=== PATIENT | male | born 1950 | race Caucasian/White ===

== ENCOUNTER → 2017-11-23 08:29 | Outpatient (CLI) | payer MEDICARE, OTHER, SELFPAY ==
--- NOTE | 2017-11-23 | DI.US.S_ITS ---
PROCEDURE: US ABD AORTA ANEURYSM SCREEN INDICATIONS: ABDOMINAL AORTIC ANEURYSM SCREENING TECHNIQUE: Real time scanning was performed of the aorta and iliac arteries, with image documentation. COMPARISON: None. FINDINGS: Aorta: Proximal aortic diameter measures 2.8 cm. Mid-aorta measures 1.8 cm. Distal aortic diameter is 1.7 cm. Iliac arteries: Right common iliac artery measures 1.2 cm. Left common iliac artery measures 1.2 cm. IMPRESSION: No aneurysm found. No dissection identified. Dictated by: Bam Garcia M.D. on 11/23/2017 at 9:48 Approved by: Bam Garcia M.D. on 11/23/2017 at 9:49
== END ==
PROVIDERS: Family Provider Physician Assistant; PCP Physician Assistant; Visit Provider Physician Assistant
DX: Z13.6 Encounter for screening for cardiovascular disorders (principal)
CPT/HCPCS: 76706

== ENCOUNTER → 2018-04-10 15:16 | Outpatient (CLI) | payer OTHER, SELFPAY ==
[2018-04-10 16:40] LABS: C-Reactive Protein Quant 1.3 mg/dL (<1.0)
[2018-04-10 17:03] LABS: Erythrocyte Sedimentation Rate 14 MM/HR (0-15)
== END ==
PROVIDERS: Family Provider Physician Assistant; PCP Physician Assistant; Visit Provider Specialist
DX: M31.6 Other giant cell arteritis (principal)
CPT/HCPCS: 36415; 85651; 86140; 99214

== ENCOUNTER → 2018-04-29 09:06 | Outpatient (CLI) | payer OTHER, SELFPAY ==
--- NOTE | 2018-04-29 09:08 | DI.MRI.S_ITS ---
PROCEDURE: MR HEAD/BRAIN WO CON INDICATIONS: New daily worsening headache with confusion TECHNIQUE: Noncontrast axial T1 spin echo, axial T2 fast spin echo, sagittal and axial FLAIR, coronal T2 fast spin echo, axial gradient echo, axial diffusion and ADC through the brain. COMPARISON: None. FINDINGS: Image quality: Limited by reduced [id number] related to use of body coil for image acquisition. Patient was unable to fit into the head coil. CSF Spaces: Basal cisterns are patent. Diffuse prominence of CSF space. Prominence of the ventricular system is out of proportion to prominence of the sulci which could be due to central volume loss versus normal pressure hydrocephalus. Ventricles are normal in size and shape. Brain: No intracranial masses or hemorrhage. Vincent/white matter interface is normal. Brainstem appears normal. Diffusion-weighted images demonstrate no acute ischemic insult. No chronic ischemic insults. Normal intravascular flow voids are present. Skull and face: Calvarium has normal marrow signal. Orbits appear normal. Sinuses: Sinuses and mastoids are clear. IMPRESSION: 1. Mild ventriculomegaly which could be due to age related central volume loss versus normal pressure hydrocephalus. Please correlate with clinical data. 2. No abnormal intracranial mass. 3. No intracranial hemorrhage. Dictated by: Albina Dias MD, PhD on 05/01/2018 at 9:40 Approved by: Albina Dias MD, PhD on 05/01/2018 at 9:43
== END ==
PROVIDERS: PCP Physician Assistant; Visit Provider Specialist
DX: G44.52 New daily persistent headache (NDPH) (principal); R41.0 Disorientation, unspecified
CPT/HCPCS: 70551

== ENCOUNTER → 2018-05-31 08:38 | Outpatient (CLI) | payer OTHER, SELFPAY ==
--- NOTE | 2018-05-31 | DI.CT.S_ITS ---
PROCEDURE: CT KIDNEY URETER BLADDER (KUB) INDICATIONS: KIDNEY STONES RIGHT SIDED PAIN TECHNIQUE: Noncontrast 5 mm thick sections acquired from the diaphragms to the symphysis. 5 mm thick coronal and sagittal reformats were then performed. For radiation dose reduction, the following was used: automated exposure control, adjustment of mA and/or kV according to patient size. COMPARISON: [facility], CT, KIDNEY/ URETER/BLADDER, 05/27/2016, 10:05. FINDINGS: Image quality: Excellent. Lung bases: Lung bases are clear. Heart size is normal. Urinary system: Both kidneys are normal in size. No kidney stones are now present (the prior CT KUB from 05/27/16 had shown a punctate calculus within the lower third collecting system of the left kidney and that is now absent). Rather, there is a proximal left ureteral calculus that measures 2 x 4 mm, causing mild left hydronephrosis and mild prominence of the left renal pelvis to the point of the ureteral pelvic junction, where this calculus is currently located. No hydronephrosis or perinephric fat stranding on the right. Both ureters appear non-dilated throughout their expected courses more inferiorly. Bladder wall thickness is normal; no calcified bladder stones. Other solid organs: Liver is normal in size. Gallbladder appears surgically resected. Pancreas is normal in contours. Spleen is normal in size. No adrenal nodules. Peritoneum and bowel: Unenhanced bowel loops demonstrate normal wall thickness and caliber. No free fluid or air. Nodes and vessels: No retroperitoneal or mesenteric adenopathy by size criteria. Aorta and inferior vena cava are normal in caliber. Abdominal wall: No ventral hernias. Pelvis: No free pelvic fluid. No inguinal hernias or adenopathy. Bones: No suspicious bony lesions. No vertebral body compression fractures. IMPRESSION: There is a 2 x 4 mm left-sided ureteropelvic junction calculus producing mild pelvic caliectasis, and the previously identified lower third left renal collecting system calculus that was punctate is no longer seen. This presumably has mildly enlarged and migrated into the ureteral pelvic junction currently, and the right sided urinary tract appears entirely normal. No bladder calculus is seen. No additional ureteral calculus is found. Incidental note is made of prior cholecystectomy. Dictated by: Bam Garcia M.D. on 05/31/2018 at 9:34 Approved by: Bam Garcia M.D. on 05/31/2018 at 9:39
== END ==
PROVIDERS: PCP Physician Assistant; Visit Provider Urology
DX: N13.2 Hydronephrosis with renal and ureteral calculous obstruction (principal); Z90.49 Acquired absence of other specified parts of digestive tract
CPT/HCPCS: 74176

== ENCOUNTER → 2018-11-03 09:50 | Outpatient (CLI) | payer OTHER, SELFPAY ==
--- NOTE | 2018-11-03 | DI.CT.S_ITS ---
PROCEDURE: CT ABDOMEN PELVIS W CON INDICATIONS: PANCREATITIS TECHNIQUE: After the administration of intravenous contrast, 5 mm thick sections acquired from the diaphragm to the symphysis. 5 mm coronal and sagittal reformats were acquired. For radiation dose reduction, the following was used: automated exposure control, adjustment of mA and/or kV according to patient size. COMPARISON: [facility], CT, ABDOMEN/PELVIS WITH CONTRAST, 12/22/2008, 0:45. [facility], CT, CT KIDNEY URETER BLADDER (KUB), 05/31/2018, 8:41. FINDINGS: Image quality: Excellent. ABDOMEN: Lung bases: Lung bases are clear. Heart size is normal. Solid organs: Liver is normal in size and enhancement. Gallbladder surgically absent. Biliary system is non dilated. Pancreas is normal in morphology and enhances normally. Spleen is normal in size and enhancement. No adrenal nodules. Kidneys demonstrate normal size and enhancement, without hydronephrosis. Peritoneum and bowel: Bowel loops demonstrate normal wall thickness and caliber. Appendix is normal. There are scattered colonic diverticula. No CT findings to suggest acute diverticulitis. No free fluid or air. Nodes and vessels: No retroperitoneal or mesenteric adenopathy by size criteria. Aorta and inferior vena cava are normal in size. Miscellaneous: A small fat containing umbilical hernia is noted. PELVIS: Genitourinary: Bladder wall thickness is normal. Miscellaneous: No inguinal adenopathy. There is a fat containing left inguinal hernia. Bones: No suspicious bony lesions. No vertebral body compression fractures. Degenerative changes noted in lumbar spine. IMPRESSION: 1. Normal CT appearance of pancreas which does not exclude early pancreatitis. 2. Diverticulosis without acute diverticulitis. 3. A fat containing left inguinal hernia. Dictated by: Cecil Allen M.D. on 11/03/2018 at 11:41 Approved by: Cecil Allen M.D. on 11/03/2018 at 11:50
== END ==
PROVIDERS: PCP Physician Assistant; Visit Provider Physician Assistant
DX: K57.90 Diverticulosis of intestine, part unspecified, without perforation or abscess without bleeding (principal); K40.90 Unilateral inguinal hernia, without obstruction or gangrene, not specified as recurrent
CPT/HCPCS: 74177; Q9967

== ENCOUNTER → 2018-11-14 08:01 | Outpatient (CLI) | payer OTHER, SELFPAY ==
[2018-11-14 09:21] LABS: Add Manual Diff / Slide Review NO; Basophils Absolute Auto 0 /uL (0-100); Basophils Percent Auto 0.6 % (0-2); Eosinophils Absolute Auto 100 /uL (0-450); Eosinophils Percent Auto 1.5 % (2-4); Hematocrit 43.4 % (41-53); Lymphocytes Absolute Auto 1700 /uL (1100-4500); Lymphocytes Percent Auto 22.2 % (25-40); Mean Corpuscular HGB Conc 34.5 % (30-36); Mean Corpuscular Hemoglobin 30.9 PG (26-34); Mean Corpuscular Volume 89.5 fL (80-100); Monocytes Absolute Auto 600 /uL (0-900); Monocytes Percent Auto 8.2 % (3-14); Neutrophils Absolute Auto 5100 /uL (1500-7000); Neutrophils Percent Auto 67.5 % (50-75); Platelet Count 157 X10^3/uL (150-400); Red Blood Cell Count 4.85 X10^6/uL (4.5-5.9); Red Cell Distribution Width 13.6 % (11.6-14.8); White Blood Cell Count 7.5 X10^3/uL (4.5-11.0)
[2018-11-14 09:39] LABS: Alanine Aminotransferase 23 IU/L (21-72); Albumin 4.1 g/dL (3.5-5.0); Albumin Globulin Ratio 1.6 (1.0-2.8); Alkaline Phosphatase 151 U/L (38-126); Amylase 217 U/L (30-110); Aspartate Aminotransferase 23 IU/L (17-59); BUN Creatinine Ratio 19.2 (6-22); Bilirubin Total 0.8 mg/dL (0.2-1.3); Blood Urea Nitrogen 23 mg/dL (9-20); Calcium 9.4 mg/dL (8.4-10.2); Carbon Dioxide 29 mmol/L (22-32); Chloride 103 mmol/L (98-107); Estimated Glomerular Filt Rate > 60.0 mL/min (>60); Globulin 2.6 g/dL (1.7-4.1); Glucose 91 mg/dL (80-110); HEMOLYSIS < 15 (0-50); Lipase 1194 U/L (23-300); Potassium 4.5 mmol/L (3.4-5.1); Sodium 141 mmol/L (137-145); Total Protein 6.7 g/dL (6.3-8.2)
== END ==
PROVIDERS: PCP Physician Assistant; Visit Provider Physician Assistant
DX: R74.8 Abnormal levels of other serum enzymes (principal); R10.84 Generalized abdominal pain
CPT/HCPCS: 36415; 80053; 82150; 83690; 85025

== ENCOUNTER 2018-11-24 16:53 | Emergency (ER) | payer OTHER, SELFPAY ==
[2018-11-24 17:18] VITALS: BP 169/61; PULSE 59; RESP 16; TEMP 36.2; O2SAT 98; BMI 33.3
--- NOTE | 2018-11-24 18:16 | ED.ABDPAIN ---
HPI - Abdominal Pain General Chief Complaint: Abdominal Pain Stated Complaint: states pancreatitis Time Seen by Provider: 11/24/18 18:08 Source: patient Mode of arrival: ambulatory Limitations: no limitations History of Present Illness HPI narrative: The patient is here with right mid abdominal pain that started initially 1 month ago. The pain radiates somewhat to his right lower quadrant. He has had no fever or chills. His appetite has been normal, not affecting the pain. He has no constipation, or diarrhea. He denies dysuria. He has no radiation of the pain to the genitalia. He does admit to slow urine output. This is intermittent. He has no history of UTI or kidney infection. He does have a history of renal calculi. CT May 2018 revealed a stone at the left UPJ. The right renal system was entirely clear. There are no bladder stones at that time. A 2nd CT was done October 2018 with the concern for pancreatitis. He is status post cholecystectomy. CT did not show obvious evidence of pancreatitis. Diverticulosis without diverticulitis was noted on that scan. He also has a small left inguinal hernia. He is here now primarily because of the concern for lack of resolution of the pain. In addition to the urine complaints he had 1 period where stool changes raise concern for GI bleeding. He has no prior history of GI bleeding. He has no obvious ongoing melena. He is not on NSAIDs. Related Data Home Medications Medication Instructions Recorded Confirmed losartan [Cozaar] 100 mg PO BEDTIME #0 08/14/11 11/24/18 oxycodone-acetaminophen 1 tab PO DAILY #0 02/05/16 11/24/18 gabapentin 300 mg capsule 300 mg PO DAILY 04/10/18 04/10/18 terazosin 5 mg capsule 10 mg PO DAILY 04/10/18 04/10/18 ondansetron 4 mg PO Q8H PRN 11/24/18 11/24/18 Previous Rx's Medication Instructions Recorded eletriptan 40 mg tablet 40 mg PO Q2-4H PRN #12 tab 04/10/18 Allergies Allergy/AdvReac Type Severity Reaction Status Date / Time No Known Drug Allergies Allergy Verified 11/24/18 17:24 Review of Systems Review of Systems ROS Unobtainable: All systems reviewed & are unremarkable except as noted in HPI and below Constitutional Denies chills, Denies fever(s), Denies lethargy and Denies weakness ENT Comments: No complaints. Cardiovascular Denies chest pain, Denies diaphoresis, Denies lightheadedness and Denies dyspnea Respiratory Denies cough and Denies dyspnea Gastrointestinal Gastrointestinal: Reports abdominal pain (See HPI), Reports change in bowel habits (See HPI), Denies diarrhea, Denies nausea and Denies vomiting Genitourinary Denies genital pain and Denies dysuria Comments: Urinary hesitation Musculoskeletal Denies back pain Integumentary/Breasts Denies lesions and Denies rash Neurologic Denies weakness Psychiatric Denies anxiety [facility] Medical History (Updated 11/24/18 @ 22:08 by Tirso Schwarz MD) Hypertension (Acute) Kidney stones (Acute) Surgical History (Updated 11/24/18 @ 18:41 by Tirso Schwarz MD) Status post cholecystectomy (Acute) Social History Smoking Status: Former smoker Social History Smoking Status: Former smoker Exam Initial Vital Signs Initial Vital Signs: Vital Signs Temperature 97.1 F L 11/24/18 17:18 Pulse Rate 59 L 11/24/18 17:18 Respiratory Rate 16 11/24/18 17:18 Blood Pressure 169/61 H 11/24/18 17:18 Pulse Oximetry 98 11/24/18 17:18 Const General: cooperative and well developed Nutritional Appearance: well nourished Orientation: alert, awake, oriented x3 and not confused [facility] Head: normocephalic and atraumatic Face and sinus: no sinus tenderness Mouth: oral mucosae normal and moist mucous membranes Eyes Conjunctivae: conjunctivae normal Neck Neck: No JVD Chest Chest: normal palpation of entire chest wall Resp Effort & Inspection: normal respiratory effort and able to speak in complete sentences Auscultation: clear to auscultation bilaterally Cardio Rate: regular rate Rhythm: regular rhythm Heart Sounds: no click, no gallops, no murmurs and no rubs Pulses: normal peripheral pulses GI Inspection: non-distended Palpation: soft, no hepatosplenomegaly, No pulsatile mass and tender (Mild right mid abdominal tenderness without guarding or rebound.) Auscultation: normal bowel sounds Rectal Exam: normal sphincter tone, prostate normal and heme negative stool Back/Spine/Pelvis Back: No CVA tenderness Skin General: no rashes or lesions noted Neuro General: alert, oriented x3 and no focal motor deficits Speech: speech normal Extrem General: other (Normal) Psych Appearance: well kempt Mental Status: mental status grossly normal Attitude: cooperative Thought Content: normal and suicidality Judgment: judgment good Course Orders Ordered: Discontinued Medications Sodium Chloride (Normal Saline 0.9%) 1,000 mls @ 150 mls/hr IV CONT CHINYERE Last Infusion: 11/24/18 22:07 Dose: 0 mls/hr Admin: 11/24/18 19:15 Dose: 150 mls/hr Ketorolac Tromethamine (Toradol) 30 mg IV NOW ONE Stop: 11/24/18 19:49 Last Admin: 11/24/18 20:09 Dose: 30 mg Vital Signs - 8 hr 11/24/18 21:05 11/24/18 22:22 Temperature 97.5 F L Pulse Rate 50 L 74 Respiratory Rate 17 16 Blood Pressure 163/89 H Blood Pressure [Left Arm] 183/91 H Pulse Oximetry 98 97 MDM - Abdominal Pain Lab Data Result diagrams: 11/24/18 18:38 11/24/18 18:38 Lab Results 11/24/18 11/24/18 11/24/18 Range/Units 18:38 18:38 18:38 WBC 7.9 (4.5-11.0) X10^3/uL RBC 4.70 (4.5-5.9) X10^6/uL Hgb 14.5 (13.5-17.5) g/dL Hct 42.5 (41-53) % MCV 90.4 (80-100) fL MCH 30.8 (26-34) PG MCHC 34.1 (30-36) % RDW 13.2 (11.6-14.8) % Plt Count 149 L (150-400) X10^3/uL Neut % (Auto) 65.3 (50-75) % Lymph % (Auto) 23.6 L (25-40) % Stark % (Auto) 8.5 (3-14) % Eos % (Auto) 1.9 L (2-4) % Baso % (Auto) 0.7 (0-2) % Neut # (Auto) 5200 (6636-4005) /uL Lymph # (Auto) 1900 (0499-8568) /uL Stark # (Auto) 700 (0-900) /uL Eos # (Auto) 200 (0-450) /uL Baso # (Auto) 100 (0-100) /uL PT 13.4 H (10.1-12.7) SECONDS INR 1.2 (0.9-1.3) APTT 29 (26.4-36.2) SECONDS Sodium 140 (137-145) mmol/L Potassium 4.1 (3.4-5.1) mmol/L Chloride 104 (98-107) mmol/L Carbon Dioxide 29 (22-32) mmol/L BUN 14 (9-20) mg/dL Creatinine 1.10 (0.66-1.25) mg/dL Estimated GFR > 60.0 (>60) mL/min BUN/Creatinine Ratio 12.7 (6-22) Glucose 86 (80-110) mg/dL Calcium 9.0 (8.4-10.2) mg/dL Total Bilirubin 0.9 (0.2-1.3) mg/dL AST 26 (17-59) IU/L ALT 25 (21-72) IU/L Alkaline Phosphatase 92 (38-126) U/L Total Protein 7.0 (6.3-8.2) g/dL Albumin 4.1 (3.5-5.0) g/dL Globulin 2.9 (1.7-4.1) g/dL Albumin/Globulin Ratio 1.4 (1.0-2.8) Lipase 273 (23-300) U/L Urine RBC (0-5/HPF) Urine WBC (0-5/HPF) Urine Bacteria (None) Urine Mucus (Negative) Ur Culture Indicated? 11/24/18 Range/Units 19:13 WBC (4.5-11.0) X10^3/uL RBC (4.5-5.9) X10^6/uL Hgb (13.5-17.5) g/dL Hct (41-53) % MCV (80-100) fL MCH (26-34) PG MCHC (30-36) % RDW (11.6-14.8) % Plt Count (150-400) X10^3/uL Neut % (Auto) (50-75) % Lymph % (Auto) (25-40) % Stark % (Auto) (3-14) % Eos % (Auto) (2-4) % Baso % (Auto) (0-2) % Neut # (Auto) (6724-4148) /uL Lymph # (Auto) (0455-1860) /uL Stark # (Auto) (0-900) /uL Eos # (Auto) (0-450) /uL Baso # (Auto) (0-100) /uL PT (10.1-12.7) SECONDS INR (0.9-1.3) APTT (26.4-36.2) SECONDS Sodium (137-145) mmol/L Potassium (3.4-5.1) mmol/L Chloride (98-107) mmol/L Carbon Dioxide (22-32) mmol/L BUN (9-20) mg/dL Creatinine (0.66-1.25) mg/dL Estimated GFR (>60) mL/min BUN/Creatinine Ratio (6-22) Glucose (80-110) mg/dL Calcium (8.4-10.2) mg/dL Total Bilirubin (0.2-1.3) mg/dL AST (17-59) IU/L ALT (21-72) IU/L Alkaline Phosphatase (38-126) U/L Total Protein (6.3-8.2) g/dL Albumin (3.5-5.0) g/dL Globulin (1.7-4.1) g/dL Albumin/Globulin Ratio (1.0-2.8) Lipase (23-300) U/L Urine RBC None seen (0-5/HPF) Urine WBC 0-1/hpf (0-5/HPF) Urine Bacteria None seen (None) Urine Mucus 1+ H (Negative) Ur Culture Indicated? Cult not indicated Point of care testing: Urine Dip Bedside Urine Glucose Negative Bedside Urine Bilirubin - Negative Bedside Urine Ketone - Negative Urine Specific [place] 1.025 Bedside Urine Occult Blood - Negative Bedside Urine pH 6.0 Bedside Urine Protein - Negative Bedside Urine Urobilinogen +/- 1mg Bedside Urine Nitrite - Negative Bedside Urine Leukocytes - Negative Esterase Imaging Data Abdominal ultrasound: Radiologist's impression: [address] [address] Ultrasound Report Signed Patient: Anastacia Kamara [facility]#: [id number] : 3Acct:[id number] Age/Sex: 68 / MDate of Service: 11/24/18 Loc: ED Accession Number: [id number] Procedure: US abdomen limited Ordering Provider: Tirso Schwarz MD PROCEDURE: US ABDOMEN LIMITED INDICATIONS: RIGHT UPPER QUADRANT PAIN TECHNIQUE: Real-time focused scanning was performed of the abdomen, with image documentation. COMPARISON: None. FINDINGS: Liver is normal in size and homogeneous in echotexture. Gallbladder surgically absent. Biliary tree is nondilated with common bile duct measuring 5.5 mm. Pancreas is not visualized due to bowel gas and cannot be evaluated. IMPRESSION: 1. Liver is sonographically normal. 2. Status post cholecystectomy. 3. No sonographic evidence of biliary obstruction. Dictated by: Albina Dias MD, PhD on 11/24/2018 at 21:11 Approved by: Albina Dias MD, PhD on 11/24/2018 at 21:12 Critical Care Time Critical Care Time: No Discharge Plan Departure Patient Disposition: Home Clinical Impression: Abdominal pain Discharge Date/Time: 11/24/18 22:25 Interventions: ED Discharge Assessment Last Done: 11/24/18 22:22 Instructions: DI for Abdominal Pain-Adult Activity Restrictions/Additional Instructions: I reviewed past records, and the studies tonight, your intra-abdominal organs and GI system appeared to be functioning quite normally. The etiology of the pain remains unclear, but there is no obvious significant issue. Musculoskeletal pain is another significant possibility. I recommend focusing on a healthy diet, and good hydration. Try Tylenol only for pain. If you have escalation of systems, such as fever, vomiting or diarrhea, persistent abnormal bowel functions, or bleeding, follow-up your doctor or return to the ER. Prescriptions: No Action losartan [Cozaar] 100 MG tablet 100 mg PO BEDTIME Qty: 0 RF: 0 oxycodone-acetaminophen 5 MG/325 MG tablet 1 tab PO DAILY Qty: 0 RF: 0 ondansetron 4 mg Tablet,Disintegrating 4 mg PO Q8H PRN (Reason: Nausea) RF: 0 terazosin 5 mg capsule 10 mg PO DAILY RF: 0 gabapentin 300 mg capsule 300 mg PO DAILY RF: 0 eletriptan 40 mg tablet 40 mg PO Q2-4H PRN (Reason: migraine headache) Qty: 12 RF: 11 Referrals: Karen Cespedes PA-C [Primary Care Provider] -
--- NOTE | 2018-11-24 18:35 | ED_ITS ---
HPI - Abdominal Pain General Chief Complaint: Abdominal Pain Stated Complaint: states pancreatitis Time Seen by Provider: 11/24/18 18:08 Source: patient Mode of arrival: ambulatory Limitations: no limitations History of Present Illness HPI narrative: The patient is here with right mid abdominal pain that started initially 1 month ago. The pain radiates somewhat to his right lower quadrant. He has had no fever or chills. His appetite has been normal, not affecting the pain. He has no constipation, or diarrhea. He denies dysuria. He has no radiation of the pain to the genitalia. He does admit to slow urine output. This is intermittent. He has no history of UTI or kidney infection. He does have a history of renal calculi. CT May 2018 revealed a stone at the left UPJ. The right renal system was entirely clear. There are no bladder stones at that time. A 2nd CT was done October 2018 with the concern for pancreatitis. He is status post cholecystectomy. CT did not show obvious evidence of pancr eatitis. Diverticulosis without diverticulitis was noted on that scan. He also has a small left inguinal hernia. He is here now primarily because of the concern for lack of resolution of the pain. In addition to the urine complaints he had 1 period where stool changes raise concern for GI bleeding. He has no prior history of GI bleeding. He has no obvious ongoing melena. He is not on NSAIDs. Related Data Home Medications Medication Instructions Recorded Confirmed losartan [Cozaar] 100 mg PO BEDTIME #0 08/14/11 11/24/18 oxycodone-acetaminophen 1 tab PO DAILY #0 02/05/16 11/24/18 gabapentin 300 mg capsule 300 mg PO DAILY 04/10/18 04/10/18 terazosin 5 mg capsule 10 mg PO DAILY 04/10/18 04/10/18 ondansetron 4 mg PO Q8H PRN 11/24/18 11/24/18 Previous Rx's Medication Instructions Recorded eletriptan 40 mg tablet 40 mg PO Q2-4H PRN #12 tab 04/10/18 Allergies Allergy/AdvReac Type Severity Reaction Status Date / Time No Known Drug Allergies Allergy Verified 11/24/18 17:24 Review of Systems Review of Systems ROS Unobtainable: All systems reviewed & are unremarkable except as noted in HPI and below Constitutional Denies chills, Denies fever(s), Denies lethargy and Denies weakness ENT Comments: No complaints. Cardiovascular Denies chest pain, Denies diaphoresis, Denies lightheadedness and Denies dyspnea Respiratory Denies cough and Denies dyspnea Gastrointestinal Gastrointestinal: Reports abdominal pain (See HPI), Reports change in bowel habits (See HPI), Denies diarrhea, Denies nausea and Denies vomiting Genitourinary Denies genital pain and Denies dysuria Comments: Urinary hesitation Musculoskeletal Denies back pain Integumentary/Breasts Denies lesions and Denies rash Neurologic Denies weakness Psychiatric Denies anxiety [facility] Medical History (Updated 11/24/18 @ 22:08 by Tirso Schwarz MD) Hypertension (Acute) Kidney stones (Acute) Surgical History (Updated 11/24/18 @ 18:41 by Tirso Schwarz MD) Status post cholecystectomy (Acute) Social History Smoking Status: Former smoker Social History Smoking Status: Former smoker Exam Initial Vital Signs Initial Vital Signs: Vital Signs Temperature 97.1 F L 11/24/18 17:18 Pulse Rate 59 L 11/24/18 17:18 Respiratory Rate 16 11/24/18 17:18 Blood Pressure 169/61 H 11/24/18 17:18 Pulse Oximetry 98 11/24/18 17:18 Const General: cooperative and well developed Nutritional Appearance: well nourished Orientation: alert, awake, oriented x3 and not confused [facility] Head: normocephalic and atraumatic Face and sinus: no sinus tenderness Mouth: oral mucosae normal and moist mucous membranes Eyes Conjunctivae: conjunctivae normal Neck Neck: No JVD Chest Chest: normal palpation of entire chest wall Resp Effort & Inspection: normal respiratory effort and able to speak in complete sentences Auscultation: clear to auscultation bilaterally Cardio Rate: regular rate Rhythm: regular rhythm Heart Sounds: no click, no gallops, no murmurs and no rubs Pulses: normal peripheral pulses GI Inspection: non-distended Palpation: soft, no hepatosplenomegaly, No pulsatile mass and tender (Mild right mid abdominal tenderness without guarding or rebound.) Auscultation: normal bowel sounds Rectal Exam: normal sphincter tone, prostate normal and heme negative stool Back/Spine/Pelvis Back: No CVA tenderness Skin General: no rashes or lesions noted Neuro General: alert, oriented x3 and no focal motor deficits Speech: speech normal Extrem General: other (Normal) Psych Appearance: well kempt Mental Status: mental status grossly normal Attitude: cooperative Thought Content: normal and suicidality Judgment: judgment good Course Orders Ordered: Discontinued Medications Sodium Chloride (Normal Saline 0.9%) 1,000 mls @ 150 mls/hr IV CONT CHINYERE Last Infusion: 11/24/18 22:07 Dose: 0 mls/hr Admin: 11/24/18 19:15 Dose: 150 mls/hr Ketorolac Tromethamine (Toradol) 30 mg IV NOW ONE Stop: 11/24/18 19:49 Last Admin: 11/24/18 20:09 Dose: 30 mg Vital Signs - 8 hr 11/24/18 21:05 11/24/18 22:22 Temperature 97.5 F L Pulse Rate 50 L 74 Respiratory Rate 17 16 Blood Pressure 163/89 H Blood Pressure [Left Arm] 183/91 H Pulse Oximetry 98 97 MDM - Abdominal Pain Lab Data Result diagrams: 11/24/18 18:38 11/24/18 18:38 Lab Results 11/24/18 11/24/18 11/24/18 Range/Units 18:38 18:38 18:38 WBC 7.9 (4.5-11.0) X10^3/uL RBC 4.70 (4.5-5.9) X10^6/uL Hgb 14.5 (13.5-17.5) g/dL Hct 42.5 (41-53) % MCV 90.4 (80-100) fL MCH 30.8 (26-34) PG MCHC 34.1 (30-36) % RDW 13.2 (11.6-14.8) % Plt Count 149 L (150-400) X10^3/uL Neut % (Auto) 65.3 (50-75) % Lymph % (Auto) 23.6 L (25-40) % Andrew % (Auto) 8.5 (3-14) % Eos % (Auto) 1.9 L (2-4) % Baso % (Auto) 0.7 (0-2) % Neut # (Auto) 5200 (9624-0395) /uL Lymph # (Auto) 1900 (6870-8050) /uL Andrew # (Auto) 700 (0-900) /uL Eos # (Auto) 200 (0-450) /uL Baso # (Auto) 100 (0-100) /uL PT 13.4 H (10.1-12.7) SECONDS INR 1.2 (0.9-1.3) APTT 29 (26.4-36.2) SECONDS Sodium 140 (137-145) mmol/L Potassium 4.1 (3.4-5.1) mmol/L Chloride 104 (98-107) mmol/L Carbon Dioxide 29 (22-32) mmol/L BUN 14 (9-20) mg/dL Creatinine 1.10 (0.66-1.25) mg/dL Estimated GFR > 60.0 (>60) mL/min BUN/Creatinine Ratio 12.7 (6-22) Glucose 86 (80-110) mg/dL Calcium 9.0 (8.4-10.2) mg/dL Total Bilirubin 0.9 (0.2-1.3) mg/dL AST 26 (17-59) IU/L ALT 25 (21-72) IU/L Alkaline Phosphatase 92 (38-126) U/L Total Protein 7.0 (6.3-8.2) g/dL Albumin 4.1 (3.5-5.0) g/dL Globulin 2.9 (1.7-4.1) g/dL Albumin/Globulin Ratio 1.4 (1.0-2.8) Lipase 273 (23-300) U/L Urine RBC (0-5/HPF) Urine WBC (0-5/HPF) Urine Bacteria (None) Urine Mucus (Negative) Ur Culture Indicated? 11/24/18 Range/Units 19:13 WBC (4.5-11.0) X10^3/uL RBC (4.5-5.9) X10^6/uL Hgb (13.5-17.5) g/dL Hct (41-53) % MCV (80-100) fL MCH (26-34) PG MCHC (30-36) % RDW (11.6-14.8) % Plt Count (150-400) X10^3/uL Neut % (Auto) (50-75) % Lymph % (Auto) (25-40) % Andrew % (Auto) (3-14) % Eos % (Auto) (2-4) % Baso % (Auto) (0-2) % Neut # (Auto) (1017-0071) /uL Lymph # (Auto) (9244-6715) /uL Andrew # (Auto) (0-900) /uL Eos # (Auto) (0-450) /uL Baso # (Auto) (0-100) /uL PT (10.1-12.7) SECONDS INR (0.9-1.3) APTT (26.4-36.2) SECONDS Sodium (137-145) mmol/L Potassium (3.4-5.1) mmol/L Chloride (98-107) mmol/L Carbon Dioxide (22-32) mmol/L BUN (9-20) mg/dL Creatinine (0.66-1.25) mg/dL Estimated GFR (>60) mL/min BUN/Creatinine Ratio (6-22) Glucose (80-110) mg/dL Calcium (8.4-10.2) mg/dL Total Bilirubin (0.2-1.3) mg/dL AST (17-59) IU/L ALT (21-72) IU/L Alkaline Phosphatase (38-126) U/L Total Protein (6.3-8.2) g/dL Albumin (3.5-5.0) g/dL Globulin (1.7-4.1) g/dL Albumin/Globulin Ratio (1.0-2.8) Lipase (23-300) U/L Urine RBC None seen (0-5/HPF) Urine WBC 0-1/hpf (0-5/HPF) Urine Bacteria None seen (None) Urine Mucus 1+ H (Negative) Ur Culture Indicated? Cult not indicated Point of care testing: Urine Dip Bedside Urine Glucose Negative Bedside Urine Bilirubin - Negative Bedside Urine Ketone - Negative Urine Specific [place] 1.025 Bedside Urine Occult Blood - Negative Bedside Urine pH 6.0 Bedside Urine Protein - Negative Bedside Urine Urobilinogen +/- 1mg Bedside Urine Nitrite - Negative Bedside Urine Leukocytes - Negative Esterase Imaging Data Abdominal ultrasound: Radiologist's impression: [address] [address] Ultrasound Report Signed Patient: Anastacia Kamara [facility]#: [id number] : 3Acct:[id number] Age/Sex: 68 / MDate of Service: 11/24/18 Loc: ED Accession Number: [id number] Procedure: US abdomen limited Ordering Provider: Tirso Schwarz MD PROCEDURE: US ABDOMEN LIMITED INDICATIONS: RIGHT UPPER QUADRANT PAIN TECHNIQUE: Real-time focused scanning was performed of the abdomen, with image documentation. COMPARISON: None. FINDINGS: Liver is normal in size and homogeneous in echotexture. Gallbladder surgically absent. Biliary tree is nondilated with common bile duct measuring 5.5 mm. Pancreas is not visualized due to bowel gas and cannot be evaluated. IMPRESSION: 1. Liver is sonographically normal. 2. Status post cholecystectomy. 3. No sonographic evidence of biliary obstruction. Dictated by: Albina Dias MD, PhD on 11/24/2018 at 21:11 Approved by: Albina Dias MD, PhD on 11/24/2018 at 21:12 Critical Care Time Critical Care Time: No Discharge Plan Departure Patient Disposition: Home Clinical Impression: Abdominal pain Discharge Date/Time: 11/24/18 22:25 Interventions: ED Discharge Assessment Last Done: 11/24/18 22:22 Instructions: DI for Abdominal Pain-Adult Activity Restrictions/Additional Instructions: I reviewed past records, and the studies tonight, your intra-abdominal organs and GI system appeared to be functioning quite normally. The etiology of the pain remains unclear, but there is no obvious significant issue. Musculoskeletal pain is another significant possibility. I recommend focusing on a healthy diet, and good hydration. Try Tylenol only for pain. If you have escalation of systems, such as fever, vomiting or diarrhea, persistent abnormal bowel functions, or bleeding, follow-up your doctor or return to the ER. Prescriptions: No Action losartan [Cozaar] 100 MG tablet 100 mg PO BEDTIME Qty: 0 RF: 0 oxycodone-acetaminophen 5 MG/325 MG tablet 1 tab PO DAILY Qty: 0 RF: 0 ondansetron 4 mg Tablet,Disintegrating 4 mg PO Q8H PRN (Reason: Nausea) RF: 0 terazosin 5 mg capsule 10 mg PO DAILY RF: 0 gabapentin 300 mg capsule 300 mg PO DAILY RF: 0 eletriptan 40 mg tablet 40 mg PO Q2-4H PRN (Reason: migraine headache) Qty: 12 RF: 11 Referrals: Karen Cespedes PA-C [Primary Care Provider] -
[2018-11-24 18:46] LABS: Add Manual Diff / Slide Review NO; Basophils Absolute Auto 100 /uL (0-100); Basophils Percent Auto 0.7 % (0-2); Eosinophils Absolute Auto 200 /uL (0-450); Eosinophils Percent Auto 1.9 % (2-4); Hematocrit 42.5 % (41-53); Hemoglobin 14.5 g/dL (13.5-17.5); Lymphocytes Absolute Auto 1900 /uL (1100-4500); Lymphocytes Percent Auto 23.6 % (25-40); Mean Corpuscular HGB Conc 34.1 % (30-36); Mean Corpuscular Hemoglobin 30.8 PG (26-34); Mean Corpuscular Volume 90.4 fL (80-100); Monocytes Absolute Auto 700 /uL (0-900); Monocytes Percent Auto 8.5 % (3-14); Neutrophils Absolute Auto 5200 /uL (1500-7000); Neutrophils Percent Auto 65.3 % (50-75); Platelet Count 149 X10^3/uL (150-400); Red Cell Distribution Width 13.2 % (11.6-14.8); White Blood Cell Count 7.9 X10^3/uL (4.5-11.0)
[2018-11-24 18:51] LABS: INR 1.2 (0.9-1.3); Prothrombin Time 13.4 SECONDS (10.1-12.7)
[2018-11-24 18:54] LABS: PTT Partial Thromboplastin Tim 29 SECONDS (26.4-36.2)
[2018-11-24 18:56] LABS: Alanine Aminotransferase 25 IU/L (21-72); Albumin 4.1 g/dL (3.5-5.0); Albumin Globulin Ratio 1.4 (1.0-2.8); Alkaline Phosphatase 92 U/L (38-126); Aspartate Aminotransferase 26 IU/L (17-59); BUN Creatinine Ratio 12.7 (6-22); Bilirubin Total 0.9 mg/dL (0.2-1.3); Blood Urea Nitrogen 14 mg/dL (9-20); Carbon Dioxide 29 mmol/L (22-32); Chloride 104 mmol/L (98-107); Estimated Glomerular Filt Rate > 60.0 mL/min (>60); Globulin 2.9 g/dL (1.7-4.1); Glucose 86 mg/dL (80-110); HEMOLYSIS 39 (0-50); Lipase 273 U/L (23-300); Potassium 4.1 mmol/L (3.4-5.1); Sodium 140 mmol/L (137-145)
[2018-11-24] MEDS: SODIUM CHLORIDE 0.9% 1,000 ML 150 ML IV (19:15)
[2018-11-24 19:17] LABS: Bacteria Urine None Seen; RBC Urine None Seen (0-5/HPF)
[2018-11-24 19:25] LABS: Culture Indicated Urine Cult Not Indicated; Mucus Urine 1+ (Negative); WBC Urine 0-1/HPF (0-5/HPF)
[2018-11-24 19:31] VITALS: BP 162/80; PULSE 49; RESP 15; O2SAT 98
--- NOTE | 2018-11-24 19:42 | DI.US.S_ITS ---
PROCEDURE: US ABDOMEN LIMITED INDICATIONS: RIGHT UPPER QUADRANT PAIN TECHNIQUE: Real-time focused scanning was performed of the abdomen, with image documentation. COMPARISON: None. FINDINGS: Liver is normal in size and homogeneous in echotexture. Gallbladder surgically absent. Biliary tree is nondilated with common bile duct measuring 5.5 mm. Pancreas is not visualized due to bowel gas and cannot be evaluated. IMPRESSION: 1. Liver is sonographically normal. 2. Status post cholecystectomy. 3. No sonographic evidence of biliary obstruction. Dictated by: Albina Dias MD, PhD on 11/24/2018 at 21:11 Approved by: Albina Dias MD, PhD on 11/24/2018 at 21:12
[2018-11-24] MEDS: KETOROLAC 60 MG/2 ML VIAL 30 MG IV (20:09)
[2018-11-24 20:19] VITALS: BP 1901/83; PULSE 90; RESP 18; O2SAT 98
[2018-11-24 21:05] VITALS: BP 183/91; PULSE 50; RESP 17; O2SAT 98
[2018-11-24 22:22] VITALS: BP 163/89; PULSE 74; RESP 16; TEMP 36.4; O2SAT 97
== END 2018-11-24 22:25 | disposition home or self-care (01) ==
PROVIDERS: Emergency Provider Emergency Medicine; PCP Physician Assistant
DX: R10.9 Unspecified abdominal pain (principal)
CPT/HCPCS: 36591; 76705; 80053; 81003; 81015; 83690; 85025; 85610; 85730; 93005; 96361; 96374; 99283; 99284; J1885

== ENCOUNTER → 2018-12-04 11:42 | Outpatient (CLI) | payer OTHER, SELFPAY ==
[2018-12-04 12:41] LABS: Triglycerides 120 mg/dL (35-150)
[2018-12-04 15:54] LABS: Hep C Virus Ab w/Reflex Quant NEGATIVE s/c (NEGATIVE)
== END ==
PROVIDERS: PCP Physician Assistant; Visit Provider Internal Medicine
DX: Z11.59 Encounter for screening for other viral diseases (principal); K85.00 Idiopathic acute pancreatitis without necrosis or infection
CPT/HCPCS: 36415; 84478; 86803

== ENCOUNTER → 2018-12-11 13:45 | Outpatient (CLI) | payer OTHER, SELFPAY ==
--- NOTE | 2018-12-11 13:47 | DI.RAD.S_ITS ---
PROCEDURE: XR SHOULDER RT MIN 2V INDICATIONS: right shoulder pain TECHNIQUE: 3 views of the shoulder were acquired. COMPARISON: None. FINDINGS: Bones: No fractures or dislocations. No suspicious bony lesions. Visualized ribs appear intact. There is mild degenerative change of the right acromioclavicular joint. Soft tissues: No suspicious soft tissue calcifications. IMPRESSION: No acute fracture or dislocation of the right shoulder. Dictated by: Javi Wagner M.D. on 12/11/2018 at 14:30 Approved by: Javi Wagner M.D. on 12/11/2018 at 14:32
== END ==
PROVIDERS: PCP Physician Assistant; Visit Provider Physician Assistant
DX: M25.511 Pain in right shoulder (principal)
CPT/HCPCS: 73030

== ENCOUNTER → 2019-02-27 05:43 | Outpatient (CLI) | payer OTHER, SELFPAY ==
--- NOTE | 2019-02-27 | DI.MRI.S_ITS ---
PROCEDURE: MR SHOULDER RT WO CON INDICATIONS: STRAIN OF MUSCLE AND TENDSON OF RIGHT SHOULDER INITIAL TECHNIQUE: Noncontrast oblique coronal T2 fast spin echo with fat saturation, oblique sagittal T1 spin echo and T2 fast spin echo with fat saturation, axial T1 spin echo and T2 fast spin echo with fat saturation through the shoulder. COMPARISON: [facility], CR, XR SHOULDER RT MIN 2V, 12/11/2018, 13:57. FINDINGS: Image quality: Excellent. Rotator cuff: Full-thickness tear involving the junction of the critical zone and footprint of the supraspinatus tendon measuring approximately 5 mm in AP dimension as seen on sagittal image 5 series 10 and approximately 4 mm on coronal image 12 series 8. Mild infraspinatus tendinopathy with low-grade bursal surface fraying. Teres minor appears intact. Subscapularis tendon appears intact. Fatty infiltration of the supraspinatus and infraspinatus muscles without definite atrophy. Bones and bursae: No bone marrow contusions or fractures. Moderate acromioclavicular joint degeneration. Acromion demonstrates conventional anatomy, without an os acromiale. Small joint effusion. Capsule and soft tissues: Labrum appears mildly frayed with minimal circumferential blunting although no discrete tear by strict MR criteria. Long head of the biceps tendon intact. The rotator interval appears normal, without fibrosis. Coracohumeral ligament intact. IMPRESSION: Full-thickness tear of the junction of the critical zone and footprint of the supraspinatus tendon as above. Infraspinatus tendinopathy and low-grade bursal surface fraying. Mild fatty infiltration of the supraspinatus and infraspinatus muscles. Mild age-appropriate labral degeneration without discrete tear. Small joint effusion. Dictated by: Porter Wilson M.D. on 02/27/2019 at 10:08 Approved by: Porter Wilson M.D. on 02/27/2019 at 10:16
== END ==
PROVIDERS: PCP Physician Assistant; Visit Provider Physician Assistant
DX: S46.011A Strain of muscle(s) and tendon(s) of the rotator cuff of right shoulder, initial encounter (principal); M25.411 Effusion, right shoulder
CPT/HCPCS: 73221

== ENCOUNTER → 2019-03-21 16:34 | Outpatient (CLI) | payer OTHER, SELFPAY ==
--- NOTE | 2019-03-21 16:36 | DI.RAD.S_ITS ---
PROCEDURE: XR CERVICAL SPINE 4V OR 5V INDICATIONS: Right hand paresthesia TECHNIQUE: 6 views of the cervical spine acquired. COMPARISON: None. FINDINGS: Bones: No fractures or dislocations to the C6 level. Given patient body habitus, the C6-7 disc space, C7, and T1 are not well-seen in the lateral or oblique projections. Facet arthropathy at C3-4 bilaterally causes moderate bilateral foraminal narrowing. Oblique images demonstrate no bony foraminal stenoses. Soft tissues: No prevertebral soft tissue swelling. Dystrophic calcification dorsal to C4 and immediately adjacent to C7 spinous process. IMPRESSION: 1. Moderate bilateral bony foraminal narrowing at C3-4 secondary to facet arthropathy. Correlate with cervical spine MRI performed the same day. 2. Given patient body habitus, suboptimal visualization of the lower cervical and cervicothoracic spine, on the lateral and oblique views. Dictated by: Tara Najera M.D. on 03/22/2019 at 8:41 Approved by: Tara Najera M.D. on 03/22/2019 at 8:44
--- NOTE | 2019-03-21 16:36 | DI.MRI.S_ITS ---
PROCEDURE: MR CERVICAL SPINE WO CON INDICATIONS: Right hand paresthesia TECHNIQUE: Noncontrast sagittal T1 spin echo and T2 fast spin echo, sagittal STIR, foraminal oblique sagittal T2 fast spin echo, and axial gradient echo or T2 fast spin echo through the cervical spine. COMPARISON: [facility], CR, XR CERVICAL SPINE 4V OR 5V, 03/21/2019, 17:10. FINDINGS: Image quality: The study is limited by body habitus, with the inability to use the standard neck coil. Alignment and Curvature: There is normal bony alignment. Bone Marrow: Marrow demonstrates normal overall signal. Spinal Cord: Visualized spinal cord has normal size and signal. No cerebellar tonsillar herniation. Paraspinous Soft Tissues: No paravertebral masses. Prevertebral soft tissues are normal in thickness. C2-C3: The disc height is well-preserved. Loss of disc signal is seen at this level. A mild degree of generalized disc osteophyte complex is seen. Mild bilateral neural foraminal narrowing is seen. The central canal is widely patent. C3-C4: The disc height is well-preserved. Loss of disc signal is seen at this level. [id number] disc osteophyte complex is seen. There is a mild central disc osteophyte protrusion, as on series 5 image 14. There is moderate to severe bilateral neural foraminal narrowing seen. Mild to moderate central canal narrowing is seen, with mild mass effect upon the ventral spinal cord. C4-C5: Mild loss of disc height is seen. Mild to moderate disc osteophyte complex is seen. There is mild to moderate right-sided and moderate left-sided facet hypertrophy seen. There is moderate right-sided and moderate to severe left-sided neural foraminal narrowing seen. [id number] central canal narrowing is seen, with mild mass effect upon the ventral spinal cord. C5-C6: The disc height is well-preserved. Loss of disc signal is seen at this level. Moderate generalized disc osteophyte complex is seen. Moderate facet joint hypertrophy is seen. There is at least moderate right-sided and mild left-sided neural foraminal narrowing seen. Moderate central canal narrowing is seen, with mild mass effect upon the ventral spinal cord. C6-C7: Mild loss of disc height is seen. Loss of disc signal is seen. Moderate disc osteophyte complex is seen, which is eccentric to the right. There is a right lateral recess/right foraminal disc osteophyte protrusion seen. There is at least moderate right-sided and moderate to severe left-sided neural foraminal narrowing seen. Moderate central canal narrowing is seen, with associated mass effect upon the ventral spinal cord. C7-T1: No significant abnormality is seen. IMPRESSION: Multiple levels of cervical spine degenerative change are seen. Dictated by: Steven Moreno M.D. on 03/21/2019 at 16:54 Approved by: Steven Moreno M.D. on 03/21/2019 at 17:02
== END ==
PROVIDERS: PCP Physician Assistant; Visit Provider Registered Nurse
DX: R20.2 Paresthesia of skin (principal); M47.812 Spondylosis without myelopathy or radiculopathy, cervical region; M48.02 Spinal stenosis, cervical region
CPT/HCPCS: 72050; 72141

== ENCOUNTER → 2019-03-26 15:08 | Outpatient (ROUT) | payer OTHER, SELFPAY ==
[2019-03-26 15:21] LABS: Add Manual Diff / Slide Review NO; Basophils Absolute Auto 0 /uL (0-100); Basophils Percent Auto 0.6 % (0-2); Eosinophils Absolute Auto 300 /uL (0-450); Eosinophils Percent Auto 4.1 % (2-4); Hematocrit 44.6 % (41-53); Hemoglobin 15.4 g/dL (13.5-17.5); Lymphocytes Absolute Auto 1700 /uL (1100-4500); Mean Corpuscular HGB Conc 34.4 % (30-36); Mean Corpuscular Hemoglobin 30.9 PG (26-34); Mean Corpuscular Volume 89.6 fL (80-100); Monocytes Absolute Auto 500 /uL (0-900); Monocytes Percent Auto 6.6 % (3-14); Neutrophils Absolute Auto 5100 /uL (1500-7000); Neutrophils Percent Auto 66.7 % (50-75); Platelet Count 147 X10^3/uL (150-400); Red Blood Cell Count 4.97 X10^6/uL (4.5-5.9); Red Cell Distribution Width 12.7 % (11.6-14.8); White Blood Cell Count 7.6 X10^3/uL (4.5-11.0)
[2019-03-26 15:27] LABS: Alanine Aminotransferase 27 IU/L (<50); Albumin Globulin Ratio 1.5 (1.0-2.8); Alkaline Phosphatase 130 U/L (38-126); Aspartate Aminotransferase 35 IU/L (17-59); BUN Creatinine Ratio 17.3 (6-22); Bilirubin Total 1.1 mg/dL (0.2-1.3); Blood Urea Nitrogen 19 mg/dL (9-20); Calcium 9.2 mg/dL (8.4-10.2); Carbon Dioxide 30 mmol/L (22-32); Chloride 104 mmol/L (98-107); Cholesterol 138 mg/dL (140-199); Estimated Glomerular Filt Rate > 60.0 mL/min (>60); Globulin 2.7 g/dL (1.7-4.1); Glucose 98 mg/dL (80-110); HDL Cholesterol 33 mg/dL (40-60); HEMOLYSIS < 15 (0-50); LDL Cholesterol Calculated 70 mg/dL (<100); Potassium 4.4 mmol/L (3.4-5.1); Sodium 140 mmol/L (137-145); Total Protein 6.7 g/dL (6.3-8.2); Triglycerides 176 mg/dL (35-150)
== END ==
PROVIDERS: PCP Physician Assistant; Visit Provider Physician Assistant
DX: E78.2 Mixed hyperlipidemia (principal); I10 Essential (primary) hypertension
CPT/HCPCS: 80053; 80061; 85025

== ENCOUNTER 2019-04-19 09:20 | Outpatient (CLI) | payer OTHER, SELFPAY | END 2019-04-19 16:00 | disposition home or self-care (01) | LOC: PHYS 09:21 | PROVIDERS: PCP Physician Assistant; Visit Provider Registered Nurse | DX: R20.2 Paresthesia of skin (principal) | CPT/HCPCS: 95886; 95912 ==

== ENCOUNTER → 2019-06-01 10:39 | Outpatient (CLI) | payer MEDICARE, SELFPAY ==
[2019-06-01 12:29] LABS: Prostate Specific Antigen 1.24 ng/mL (0.10-4.00)
== END ==
PROVIDERS: PCP Internal Medicine; Visit Provider Urology
DX: Z12.5 Encounter for screening for malignant neoplasm of prostate (principal)
CPT/HCPCS: 36415; 84153

== ENCOUNTER → 2019-11-16 17:01 | Outpatient (CLI) | payer MEDICARE, SELFPAY ==
--- NOTE | 2019-11-16 17:05 | DI.RAD.S_ITS ---
PROCEDURE: XR THORACIC SPINE 3V INDICATIONS: RIB AND BACK PAIN TECHNIQUE: 2 views of the thoracic spine were acquired. COMPARISON: None. FINDINGS: Bones: No fractures or dislocations. No suspicious bony lesions. 12 pairs of ribs are noted, and appear intact where visualized. There is mild intervertebral disc space narrowing and endplate sclerosis. Soft tissues: No paravertebral stripe thickening. IMPRESSION: Mild degenerative change. Dictated by: Kassy Gordon M.D. on 11/16/2019 at 17:56 Approved by: Kassy Gordon M.D. on 11/16/2019 at 17:56
--- NOTE | 2019-11-16 17:05 | DI.RAD.S_ITS ---
PROCEDURE: XR RIBS RT MIN 3V W CXR 1V INDICATIONS: RIB AND BACK PAIN TECHNIQUE: 2 views of the right ribs were acquired, along with a single view chest. COMPARISON: None. FINDINGS: Surgical changes and devices: None. Bones and chest wall: No acute fractures or dislocations. Healed right anterior rib fractures are noted. No suspicious bony lesions. Overlying soft tissues appear unremarkable. Lungs and pleura: No pleural effusions or pneumothorax. Lungs appear clear. Mediastinum: Mediastinal contours appear normal. Heart size is normal. IMPRESSION: No acute displaced rib fractures. Healed previous right anterior rib fractures noted. Dictated by: Kassy Gordon M.D. on 11/16/2019 at 17:56 Approved by: Kassy Gordon M.D. on 11/16/2019 at 17:58
== END ==
PROVIDERS: PCP Internal Medicine; Referring Provider Physician Assistant; Visit Provider Physician Assistant
DX: M54.6 Pain in thoracic spine (principal); R07.81 Pleurodynia; M47.814 Spondylosis without myelopathy or radiculopathy, thoracic region
CPT/HCPCS: 71101; 72072

== ENCOUNTER → 2019-11-23 09:54 | Outpatient (CLI) | payer MEDICARE, SELFPAY ==
--- NOTE | 2019-11-23 | DI.RAD.S_ITS ---
PROCEDURE: XR SCAPULA RT INDICATIONS: right scapula pain after fall onto back TECHNIQUE: 2 views of the scapula were acquired. COMPARISON: Radiographs of the right ribs dated 11/16/2019 performed at [facility]. FINDINGS: Bones: No acute fracture is identified. Healed anterior rib fractures are again noted as seen on the radiographs from 11/16/2019. And there is inferior positioning of the acromion relative to the distal clavicle without widening of the acromioclavicular joint, which may be congenital. Soft tissues: Overlying soft tissues appear normal. IMPRESSION: No acute scapular fracture is identified. Healed anterior rib fractures are redemonstrated. Dictated by: Cameron Arenas M.D. on 11/23/2019 at 10:33 Approved by: Cameron Arenas M.D. on 11/23/2019 at 10:38
== END ==
PROVIDERS: PCP Physician Assistant; Referring Provider Physician Assistant; Visit Provider Physician Assistant
DX: M89.8X1 Other specified disorders of bone, shoulder (principal); M25.511 Pain in right shoulder
CPT/HCPCS: 73010

== ENCOUNTER → 2019-12-10 11:33 | Outpatient (CLI) | payer MEDICARE, SELFPAY ==
[2019-12-10 12:16] LABS: Add Manual Diff / Slide Review NO; Basophils Absolute Auto 100 /uL (0-100); Basophils Percent Auto 0.8 % (0-2); Eosinophils Absolute Auto 200 /uL (0-450); Eosinophils Percent Auto 2.4 % (2-4); Hematocrit 41.4 % (41-53); Hemoglobin 14.3 g/dL (13.5-17.5); Lymphocytes Absolute Auto 1600 /uL (1100-4500); Mean Corpuscular HGB Conc 34.7 % (30-36); Mean Corpuscular Hemoglobin 31.2 PG (26-34); Mean Corpuscular Volume 89.9 fL (80-100); Monocytes Absolute Auto 600 /uL (0-900); Monocytes Percent Auto 7.2 % (3-14); Neutrophils Absolute Auto 5400 /uL (1500-7000); Neutrophils Percent Auto 69.6 % (50-75); Platelet Count 167 X10^3/uL (150-400); Red Cell Distribution Width 13.8 % (11.6-14.8); White Blood Cell Count 7.8 X10^3/uL (4.5-11.0)
[2019-12-10 12:50] LABS: Alanine Aminotransferase 22 IU/L (<50); Albumin 4.3 g/dL (3.5-5.0); Albumin Globulin Ratio 1.6 (1.0-2.8); Alkaline Phosphatase 161 U/L (38-126); Aspartate Aminotransferase 25 IU/L (17-59); Bilirubin Total 1.1 mg/dL (0.2-1.3); Blood Urea Nitrogen 21 mg/dL (9-20); Calcium 9.5 mg/dL (8.4-10.2); Carbon Dioxide 28 mmol/L (22-32); Chloride 105 mmol/L (98-107); Estimated Glomerular Filt Rate > 60.0 mL/min (>60); Globulin 2.7 g/dL (1.7-4.1); Glucose 96 mg/dL (80-110); HEMOLYSIS < 15 (0-50); Potassium 4.1 mmol/L (3.4-5.1); Sodium 140 mmol/L (137-145)
[2019-12-10 13:19] LABS: TSH w/ Reflex to FT4 1.45 uIU/mL (0.47-4.68)
[2019-12-10 16:19] LABS: Vitamin D 25 Hydroxy (D3) 54.3 ng/mL (30.0-100.0)
== END ==
PROVIDERS: PCP Physician Assistant; Referring Provider Physician Assistant; Visit Provider Physician Assistant
DX: I67.89 Other cerebrovascular disease (principal)
CPT/HCPCS: 36415; 80053; 82306; 84443; 85025

== ENCOUNTER → 2019-12-17 13:15 | Outpatient (CLI) | payer MEDICARE, SELFPAY ==
[2019-12-17 14:26] LABS: Add Manual Diff / Slide Review NO; Basophils Absolute Auto 100 /uL (0-100); Basophils Percent Auto 0.7 % (0-2); Eosinophils Absolute Auto 200 /uL (0-450); Eosinophils Percent Auto 2.4 % (2-4); Hematocrit 40.5 % (41-53); Hemoglobin 14.3 g/dL (13.5-17.5); Lymphocytes Absolute Auto 1800 /uL (1100-4500); Lymphocytes Percent Auto 19.4 % (25-40); Mean Corpuscular HGB Conc 35.2 % (30-36); Mean Corpuscular Hemoglobin 31.6 PG (26-34); Mean Corpuscular Volume 89.8 fL (80-100); Monocytes Absolute Auto 800 /uL (0-900); Monocytes Percent Auto 8.3 % (3-14); Neutrophils Absolute Auto 6400 /uL (1500-7000); Neutrophils Percent Auto 69.2 % (50-75); Platelet Count 165 X10^3/uL (150-400); Red Blood Cell Count 4.51 X10^6/uL (4.5-5.9); Red Cell Distribution Width 13.5 % (11.6-14.8); White Blood Cell Count 9.2 X10^3/uL (4.5-11.0)
[2019-12-17 14:50] LABS: Alanine Aminotransferase 21 IU/L (<50); Albumin 4.1 g/dL (3.5-5.0); Albumin Globulin Ratio 1.5 (1.0-2.8); Alkaline Phosphatase 180 U/L (38-126); Aspartate Aminotransferase 28 IU/L (17-59); BUN Creatinine Ratio 17.2 (6-22); Bilirubin Total 0.8 mg/dL (0.2-1.3); Bilirubin Unconjugated 0.6 mg/dL (0.0-1.1); Blood Urea Nitrogen 21 mg/dL (9-20); Calcium 9.3 mg/dL (8.4-10.2); Carbon Dioxide 27 mmol/L (22-32); Chloride 106 mmol/L (98-107); Estimated Glomerular Filt Rate 59.2 mL/min (>60); Gamma Glutamyl Transpeptidase 28 U/L (15-73); Globulin 2.7 g/dL (1.7-4.1); Glucose 99 mg/dL (80-110); HEMOLYSIS 24 (0-50); Sodium 138 mmol/L (137-145); Total Protein 6.8 g/dL (6.3-8.2)
[2019-12-17 15:19] LABS: TSH w/ Reflex to FT4 0.18 uIU/mL (0.47-4.68)
[2019-12-17 15:22] LABS: Vitamin D 25 Hydroxy (D3) 44.4 ng/mL (30.0-100.0)
[2019-12-17 16:02] LABS: Free T4, Direct Thyroxine 1.22 ng/dL (0.78-2.19)
== END ==
PROVIDERS: PCP Physician Assistant; Referring Provider Physician Assistant; Visit Provider Physician Assistant
DX: I67.89 Other cerebrovascular disease (principal)
CPT/HCPCS: 36415; 80053; 80076; 82306; 82977; 84439; 84443; 85025

== ENCOUNTER → 2019-12-20 11:41 | Outpatient (CLI) | payer MEDICARE, SELFPAY ==
[2019-12-20 12:56] LABS: Alanine Aminotransferase 24 IU/L (<50); Albumin 4.2 g/dL (3.5-5.0); Albumin Globulin Ratio 1.4 (1.0-2.8); Alkaline Phosphatase 145 U/L (38-126); Aspartate Aminotransferase 28 IU/L (17-59); BUN Creatinine Ratio 15.5 (6-22); Blood Urea Nitrogen 17 mg/dL (9-20); Calcium 9.2 mg/dL (8.4-10.2); Carbon Dioxide 29 mmol/L (22-32); Chloride 104 mmol/L (98-107); Estimated Glomerular Filt Rate > 60.0 mL/min (>60); Globulin 2.9 g/dL (1.7-4.1); Glucose 100 mg/dL (80-110); HEMOLYSIS < 15 (0-50); Potassium 4.5 mmol/L (3.4-5.1); Sodium 138 mmol/L (137-145); Total Protein 7.1 g/dL (6.3-8.2)
[2019-12-20 13:36] LABS: TSH w/ Reflex to FT4 0.76 uIU/mL (0.47-4.68)
[2019-12-21 09:40] LABS: Parathyroid Hormone Int 45 pg/mL (15-65)
[2019-12-24 21:39] LABS: Alkaline Phosphatase, Bone Spe 14.8 ug/L (7.6-25.1)
== END ==
PROVIDERS: PCP Physician Assistant; Referring Provider Physician Assistant; Visit Provider Physician Assistant
DX: I67.89 Other cerebrovascular disease (principal)
CPT/HCPCS: 36415; 80053; 83970; 84080; 84443

== ENCOUNTER → 2019-12-28 08:55 | Outpatient (CLI) | payer MEDICARE, SELFPAY ==
--- NOTE | 2019-12-28 | DI.MRI.S_ITS ---
PROCEDURE: MR LUMBAR SPINE WO CON INDICATIONS: Low back pain TECHNIQUE: Noncontrast sagittal T1 spin echo and T2 fast echo, sagittal STIR, axial T1 and T2 fast spin echo through the lumbar spine. In cases with scoliosis, additional coronal T2 fast spin echo may be performed. COMPARISON: [facility], MR, L-SPINE WITHOUT CONTRAST, 08/17/2010, 18:12. [facility], CR, L-SPINE 2-3 VIEWS, 09/07/2016, 9:59. [facility], CT, KIDNEY/ URETER/BLADDER, 05/27/2016, 10:05. FINDINGS: Image quality: Diagnostic, with note made of motion artifact. Alignment and Curvature: There is normal bony alignment. Bone Marrow: Marrow is of normal overall signal. Scattered foci are seen, which are hyperintense on T1-weighted and T2-weighted imaging, which are most consistent with benign vertebral body hemangiomas. No acute vertebral body compression fractures. Spinal Cord: Conus medullaris terminates at the L1 level. Visualized cord demonstrates normal signal and size. Paraspinous Soft Tissues: No paravertebral masses. T12-L1: Normal appearance. L1-L2: Moderate loss of disc height is seen. Loss of disc signal is seen. Moderate disc bulge is seen, which is eccentric to the right. There is a central/left disc protrusion, as on series 5, image 10. There is mild left-sided neural foraminal narrowing seen. No significant right-sided neural narrowing is seen. Moderate central canal narrowing is seen. Minimal progression compared to 2010. L2-L3: Moderate loss of disc height is seen. Loss of disc signal is seen. Moderate disc bulge is seen, which is eccentric to the right. There is a central disc protrusion seen. Mild to moderate facet hypertrophy is seen. There is mild right-sided and moderate left-sided neural foraminal narrowing seen. At least moderate central canal narrowing is seen at this level. When comparison is made with the prior examination, these findings are similar. L3-L4: The disc height is well-preserved. Loss of disc signal is seen at this level. There is a focal annular fissure seen posteriorly. At least moderate disc bulge is seen, which is eccentric to the right. There is a central disc protrusion seen. Moderate facet joint hypertrophy is seen. Associated hypertrophy of the ligamentum flavum can be seen. There is at least moderate bilateral neural foraminal narrowing seen, right worse than left. Moderate to severe central canal narrowing is seen, as on series 5, image 21. These imaging findings have progressed compared to the prior study. L4-L5: Moderate to severe loss of disc height and disc signal can be seen. Moderate disc bulge is seen, with a central disc protrusion. There is also a right-sided disc extrusion, with inferior migration of the disc material, as on series 2, image 6 and on series 5 image 27. Regional mass effect is seen, particularly upon the right L5 nerve root. Mild to moderate facet hypertrophy is seen. There is moderate left-sided and at least moderate right-sided neural foraminal narrowing seen. Moderate central canal narrowing is seen. These degenerative changes have progressed compared to 2011. L5-S1: Moderate loss of disc height is seen. Loss of disc signal is seen. Moderate disc bulge is seen, with a central disc protrusion. Moderate facet hypertrophy is seen, right worse than left. There is mild to moderate left-sided and moderate right-sided neural foraminal narrowing seen. Mild to moderate central canal narrowing is seen. Compared to 2011, these degenerative changes are slightly progressed. IMPRESSION: At the L4-5 level, there is a right-sided disc extrusion, with associated mass effect upon the regional nerve roots. Multiple levels of degenerative change are seen, which are overall progressed compared to 2011. Dictated by: Steven Moreno M.D. on 12/28/2019 at 11:54 Approved by: Steven Moreno M.D. on 12/28/2019 at 12:00
== END ==
PROVIDERS: PCP Physician Assistant; Referring Provider Physician Assistant; Visit Provider Physical Medicine & Rehabilitation
DX: M47.816 Spondylosis without myelopathy or radiculopathy, lumbar region (principal); M47.817 Spondylosis without myelopathy or radiculopathy, lumbosacral region; M51.26 Other intervertebral disc displacement, lumbar region
CPT/HCPCS: 72148

== ENCOUNTER → 2020-03-16 11:56 | Outpatient (CLI) | payer MEDICARE, SELFPAY ==
[2020-03-17 20:11] LABS: COVID19 Sendout Not Detected (Not Detect)
== END ==
PROVIDERS: PCP Physician Assistant; Visit Provider Physician Assistant
DX: Z11.59 Encounter for screening for other viral diseases (principal)
CPT/HCPCS: 87635

== ENCOUNTER 2020-03-19 11:48 | Day surgery (SDC) | payer MEDICARE, SELFPAY ==
[2020-03-19] VITALS (7 sets, daily range): BP systolic 134–155; BP diastolic 81–90; PULSE 61–72; RESP 12–24; TEMP 36.2–36.9; O2SAT 97–99; BMI 33.8
--- NOTE | 2020-03-19 | PATH_ITS ---
[facility] Accession Number: [id number] . 01 Material submitted: . PART A: colon - ASCENDING COLON POLYP X7 PART B: colon - TRANSVERSE COLON POLYPS X4 PART C: colon - RECTO SIGMOID POLYPS X3 . 01 Clinical history: . SDC . 02 Diagnosis: A. Ascending Colon, Polyps, Biopsy: Tubular adenoma in 4 of 6 fragments. Benign lymphoid aggregate in 1 fragment. . B. Transverse Colon, Polyps, Biopsies: Tubular adenoma in 3 of multiple fragments. . C. Rectosigmoid Colon, Polyps, Biopsies: Tubular adenoma in 1 of 3 fragments. Hyperplastic polyp in 2 fragments. BFI 03/21/2020 1424 Local . 02 Electronically signed: . Lynda Church MD, Pathologist NPI- [id number] . 01 Gross description: . Part A: ASCENDING COLON POLYP X7: Received in formalin are multiple fragment(s) of villareal, soft tissue measuring 0.1 x 0.1 x 0.1 cm to 0.3 x 0.3 x 0.2 cm submitted entirely in 1 cassette(s) Part B: TRANSVERSE COLON POLYPS X4: Received in formalin are multiple fragment(s) of villareal, soft tissue measuring 0.1 x 0.1 x 0.1 cm to 0.3 x 0.3 x 0.3 cm submitted entirely in 1 cassette(s) Part C: RECTO SIGMOID POLYPS X3: Received in formalin are 3 fragment(s) of villareal, soft tissue measuring 0.1 x 0.1 x 0.1 cm to 0.3 x 0.3 x 0.2 cm submitted entirely in 1 cassette(s) /JUAN 03/20/2020 0138 Local . 02 Pathologist provided ICD-10: D12.2, D12.3, D12.7 . 02 CPT . 348368, 054286, 166298 [facility]formed at: [address] [facility] [address] [address], [place], [place] [id number] MD Paul Packer MD Phone: [phone] [facility] [address] [address] [place], [place] [id number] MD Lynda Church MD Phone: [phone]
[2020-03-19] MEDS: SODIUM CHLORIDE 0.9% 1,000 ML 70 ML IV (12:28)
--- NOTE | 2020-03-19 12:44 | PM.HP.1 ---
History of Present Illness History of Present Illness Date Patient Seen: 03/19/20 Time Patient Seen: 12:44 Chief complaint: SDC Narrative: Patient is a 69-year-old female who presented for colonoscopy. He was last evaluated in the office on March 03, 2020 she does have a personal history of greater than 10 tubular adenomas. On December of 2018 he had 18 polyps 16 of them were tubular adenomas. He was recommended to have 1 year repeat at that time. He did well with the prep and sedation at that time despite chronic narcotic use. 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) Surgical History Status post cholecystectomy (Acute) Family & Social History Social History: household members spouse Tobacco & Substance use: Smoking Status Former smoker alcohol intake frequency a few times a week Substance Use Type marijuana Meds Home Medications and Allergies Home Medications Medication Instructions Recorded Confirmed Type losartan [Cozaar] 100 mg PO BEDTIME #0 08/14/11 03/19/20 History oxycodone-acetaminophen 1 tab PO DAILY #0 02/05/16 03/19/20 History eletriptan 40 mg tablet 40 mg PO Q2-4H PRN #12 tab 04/10/18 03/19/20 Rx gabapentin 300 mg capsule 300 mg PO DAILY 04/10/18 03/19/20 History terazosin 5 mg capsule 10 mg PO DAILY 04/10/18 03/19/20 History ondansetron 4 mg PO Q8H PRN 11/24/18 03/19/20 History propranolol 120 mg PO BID 03/19/20 03/19/20 History Allergies Allergy/AdvReac Type Severity Reaction Status Date / Time No Known Drug Allergies Allergy Verified 04/23/19 09:26 Review of Systems Review of Systems ROS: Yes All systems reviewed with the patient and are negative except as otherwise documented Exam Vital Signs (past 8 hours): - 03/19/20 12:11 Temperature 97.4 F L Pulse Rate 66 Respiratory Rate 16 Blood Pressure 155/87 H Pulse Oximetry 98 Oxygen Delivery Method Room Air Const General: cooperative, healthy appearing, comfortable and well developed Orientation: alert, awake and oriented x3 HENMT Head: normocephalic and atraumatic Resp Effort & Inspection: normal respiratory effort and able to speak in complete sentences Auscultation: clear to auscultation bilaterally Cardio Rate: regular rate Rhythm: regular rhythm Heart Sounds: S1 normal and S2 normal GI Palpation: soft and No tender Extrem Right lower extremity: no edema Left lower extremity: no edema Assessment & Plan Assessment & Plan narrative: 1. Personal history of 16 tubular adenomas -colonoscopy today, further recommendations to follow
[2020-03-19] MEDS: MIDAZOLAM 5 MG/5 ML VIAL IV (13:12)
[2020-03-19] MEDS: fentaNYL 250 MCG/5 ML INJ IV (13:12)
--- NOTE | 2020-03-19 13:40 | P.OP.ENDO_ITS ---
Operative Date/Time/Diagnoses Date of procedure: 03/19/20 Time of procedure: 13:12 Procedure Notes Procedure in detail: Surgeon: Kristin Miranda DO Procedure: Colonoscopy with polypectomy Preoperative diagnosis: 1. History of multiple colon polyps (16 tubular adenomas December 2018) Postoperative diagnosis: 1. Seven polyps measuring 2-4 mm in the ascending colon 2. Four polyps measuring 2-4 mm in the transverse colon 3. Three polyps measuring 2-3 mm in the rectosigmoid junction 4. Sigmoid diverticulosis 5. Grade 2 internal hemorrhoids Medications: Conscious sedation using 5 mg IV of Midazolam and 125 mcg IV of Fentanyl Preanesthesia Assessment An H and P was performed/updated and the Px?s ASA class is 2_. The procedure was discussed in detail with the patient. The potential risks and complications including infection, bleeding, missed lesions, perforation, need for surgery in case of perforation, prolonged hospital stay, and were explained. A brief question and answer period was allotted and once all questions were answered, in formed consent was obtained. The patient was brought back to the procedure room and placed on standard monitoring. The patient?s vital signs were monitored continuously throughout the entire procedure. Prior to starting, a timeout was performed to confirm the patient?s identity, allergies, medications, and procedure. Procedure in detail The patient was placed in left lateral decubitus position and once adequate sedation was obtained a JACINTO was performed. The digital rectal examination did not reveal any palpable lesions. The tip of the colonoscope was placed in the anal canal and advanced without difficulty all the way to the cecum which was identified by the appendiceal orifice and the ileocecal valve. Careful examination of all acosta of the colon was performed with irrigation of any residual stool. A 2nd pass in the ascending colon was deflated. -Seven polyps measuring 2-4 mm in the ascending colon removed with Jumbo forceps -Four polyps measuring 2-4 mm in the transverse colon removed with Jumbo forceps -Three polyps measuring 2-3 mm in the rectosigmoid junction removed with Jumbo forceps -Sigmoid diverticulosis -Grade 2 internal hemorrhoids The patient tolerated the procedure well and will be brought back to the recovery area to be discharged once criteria are met. The prep was judged to be good/excellent and adequate to identify polyps less than 5 mm. The withdrawal time was 12min. The total physician intraservice time was 23min. Complications There were no complications and estimated blood loss was minimal. Recommendations: Resume high-fiber diet Continue outPx medications Follow up pathology results Repeat colonoscopy will be determined based on pathology results Recommend evaluation by genetic counseling to determine his medical status is warranted An emergency contact number was given to the patient for any complications related to the procedure
== END 2020-03-19 14:23 | disposition home or self-care (01) ==
PROVIDERS: PCP Physician Assistant; Referring Provider Physician Assistant; Visit Provider Student in an Organized Health Care Education/Training Program
PROC: 0DJD8ZZ Inspection of Lower Intestinal Tract, Via Natural or Artificial Opening Endoscopic (ICD-10-PCS; CPT 45378; principal; 2020-03-19 13:00)
DX: K57.30 Diverticulosis of large intestine without perforation or abscess without bleeding (principal); K64.1 Second degree hemorrhoids; D12.2 Benign neoplasm of ascending colon; D12.3 Benign neoplasm of transverse colon; D12.7 Benign neoplasm of rectosigmoid junction; I10 Essential (primary) hypertension; Z86.010 Personal history of colon polyps; Z12.11 Encounter for screening for malignant neoplasm of colon
CPT/HCPCS: 45380; J2250; J3010

== ENCOUNTER → 2020-06-16 11:31 | Outpatient (CLI) | payer OTHER, SELFPAY ==
[2020-06-16 13:37] LABS: Prostate Specific Antigen 0.934 ng/mL (0.10-4.00)
== END ==
PROVIDERS: PCP Physician Assistant; Referring Provider Urology; Visit Provider Urology
DX: Z12.5 Encounter for screening for malignant neoplasm of prostate (principal)
CPT/HCPCS: 36415; 84153

== ENCOUNTER → 2020-07-02 13:51 | Outpatient (CLI) | payer OTHER, SELFPAY ==
--- NOTE | 2020-07-02 13:53 | DI.MRI.S_ITS ---
PROCEDURE: MR SHOULDER RT WO CON INDICATIONS: Unspecified disorder of synovium and tendon, right TECHNIQUE: Noncontrast axial T2 fast spin echo with fat saturation through the shoulder. COMPARISON: [facility], MR, MR SHOULDER RT WO CON, 02/27/2019, 6:31. FINDINGS: The patient terminated the exam after a single axial sequence was obtained. Limited diagnostic information is obtained. The supraspinatus and infraspinatus tendons are not well evaluated in the axial plane. The teres minor and subscapularis tendons are intact. There is no acute trabecular bone injury. Mild degenerative spurring is seen in the glenoid rim. The acromioclavicular joint is not well evaluated. There is a small glenohumeral joint effusion. A small subacromial/subdeltoid bursal effusion is present. No anteroposterior labral tear is identified as evaluated on axial images in the absence of intra-articular contrast material. The visualized portions of the biceps long head tendon are intact. IMPRESSION: 1. The patient terminated the exam after single axial sequence was obtained. 2. Small glenohumeral joint effusion and subacromial/subdeltoid bursal effusion are present. No intra-articular loose body is seen. 3. No acute trabecular bone injury. The previously seen full-thickness supraspinatus tendon tear is not well evaluated in the axial plane. Dictated by: Cameron Arenas M.D. on 07/02/2020 at 15:24 Approved by: Cameron Arenas M.D. on 07/02/2020 at 15:30
== END ==
PROVIDERS: PCP Physician Assistant; Referring Provider Orthopaedic Surgery; Visit Provider Orthopaedic Surgery
DX: M67.911 Unspecified disorder of synovium and tendon, right shoulder (principal); M25.411 Effusion, right shoulder
CPT/HCPCS: 73221

== ENCOUNTER → 2020-08-06 12:56 | Outpatient (CLI) | payer OTHER, SELFPAY ==
[2020-08-06 14:14] LABS: Add Manual Diff / Slide Review NO; Basophils Absolute Auto 0 /uL (0-100); Basophils Percent Auto 0.6 % (0-2); Eosinophils Absolute Auto 300 /uL (0-450); Eosinophils Percent Auto 4.6 % (2-4); Hematocrit 42.6 % (41-53); Hemoglobin 14.4 g/dL (13.5-17.5); Lymphocytes Absolute Auto 1800 /uL (1100-4500); Mean Corpuscular HGB Conc 33.7 % (30-36); Mean Corpuscular Hemoglobin 30.3 PG (26-34); Monocytes Absolute Auto 500 /uL (0-900); Monocytes Percent Auto 7.5 % (3-14); Neutrophils Absolute Auto 4400 /uL (1500-7000); Neutrophils Percent Auto 62.3 % (50-75); Platelet Count 155 X10^3/uL (150-400); Red Blood Cell Count 4.74 X10^6/uL (4.5-5.9); Red Cell Distribution Width 13.3 % (11.6-14.8)
[2020-08-06 14:25] LABS: Hemoglobin A1C% w Est Avg Glu 5.2 % (4.0-6.0)
[2020-08-06 14:30] LABS: Alanine Aminotransferase 29 IU/L (<50); Albumin 4.3 g/dL (3.5-5.0); Albumin Globulin Ratio 1.6 (1.0-2.8); Alkaline Phosphatase 128 U/L (38-126); Aspartate Aminotransferase 35 IU/L (17-59); BUN Creatinine Ratio 14.9 (6-22); Bilirubin Total 0.7 mg/dL (0.2-1.3); Blood Urea Nitrogen 17 mg/dL (9-20); Calcium 9.3 mg/dL (8.4-10.2); Carbon Dioxide 27 mmol/L (22-32); Chloride 106 mmol/L (98-107); Cholesterol 123 mg/dL (140-199); Estimated Glomerular Filt Rate > 60.0 mL/min (>60); Globulin 2.7 g/dL (1.7-4.1); Glucose 118 mg/dL (80-110); HDL Cholesterol 37 mg/dL (40-60); HEMOLYSIS < 15 (0-50); LDL Cholesterol Calculated 42 mg/dL (<100); Sodium 140 mmol/L (137-145); Triglycerides 219 mg/dL (35-150)
[2020-08-06 15:00] LABS: TSH w/ Reflex to FT4 1.88 uIU/mL (0.47-4.68)
[2020-08-06 15:05] LABS: Ferritin 88 ng/mL (18-464)
== END ==
PROVIDERS: PCP Physician Assistant; Referring Provider Physician Assistant; Visit Provider Physician Assistant
DX: Z01.818 Encounter for other preprocedural examination (principal); I10 Essential (primary) hypertension; R73.01 Impaired fasting glucose; D69.6 Thrombocytopenia, unspecified; R53.83 Other fatigue; E78.2 Mixed hyperlipidemia
CPT/HCPCS: 36415; 80053; 80061; 82728; 83036; 84443; 85025; 93005

== ENCOUNTER → 2020-08-11 09:54 | Outpatient (CLI) | payer OTHER, SELFPAY ==
--- NOTE | 2020-08-11 09:57 | DI.RAD.S_ITS ---
PROCEDURE: XR KNEE RT 1TO2V INDICATIONS: PAIN IN RIGHT KNEE TECHNIQUE: 3 views of the knee were acquired. COMPARISON: None. FINDINGS: Bones: No fractures or dislocations. No suspicious bony lesions. [id number] tricompartmental osteoarthritis. Soft tissues: No joint effusion. No suspicious soft tissue calcifications. IMPRESSION: Tricompartmental osteoarthritis. Dictated by: Albina Dias MD, PhD on 08/11/2020 at 16:28 Approved by: Albina Dias MD, PhD on 08/11/2020 at 16:28
== END ==
PROVIDERS: PCP Physician Assistant; Referring Provider Physician Assistant; Visit Provider Physician Assistant
DX: M25.561 Pain in right knee (principal); M17.11 Unilateral primary osteoarthritis, right knee
CPT/HCPCS: 73560

== ENCOUNTER → 2021-06-01 11:54 | Outpatient (CLI) | payer OTHER, SELFPAY ==
--- NOTE | 2021-06-01 11:57 | DI.US.S_ITS ---
PROCEDURE: US THYROID INDICATIONS: MUTYH MUTATION GENE TECHNIQUE: Real-time scanning was performed of the thyroid gland, with image documentation. COMPARISON: None. FINDINGS: Right: Thyroid lobe measures 4.9 x 1.8 x 1.2 cm, and is homogeneous in echotexture. Left: Thyroid lobe measures 4.2 x 0.4 x 1.7 cm, and is homogenous in echotexture. Isthmus: 4.6 mm thick. Nodule number: 1 Location: Left mid to superior Size: 0.6 x 0.5 x 0.5 cm. Composition: Predominantly cystic Echogenicity: Hypoechoic Shape: wider than tall. Margins: Smooth Echogenic foci: None Total points: 2 ACR TI-RADS category: Not suspicious. IMPRESSION: 6 mm left thyroid nodule which is not suspicious. Given the small size, no additional follow-up is warranted. ACR TI-RADS definitions and recommendations: TI-RADS 1 (benign): 0 points. FNA not needed. TI-RADS 2 (not suspicious): 2 points. FNA not needed. TI-RADS 3 (mildly suspicious): 3 points. * FNA if 2.5 cm or larger, follow up if 1.5 cm or larger (at 1, 3, and 5 years). TI-RADS 4 (moderately suspicious): 4-6 points. * FNA if 1.5 cm or larger, follow up if 1 cm or larger (at 1, 2, 3, and 5 years). TI-RADS 5 (highly suspicious): 7 points or more. * FNA if 1 cm or larger, follow up if 0.5 cm or larger (every year for 5 years). Dictated by: Catalino LICEA Interpreted: Bishop De La O MD on 06/01/2021 at 13:31 Transcribed by: ERNIE on 06/01/2021 at 13:38 Approved by: Bishop De La O M.D. on 06/01/2021 at 13:59
== END ==
PROVIDERS: PCP Physician Assistant; Referring Provider Internal Medicine Gastroenterology; Visit Provider Internal Medicine Gastroenterology
DX: Z15.09 Genetic susceptibility to other malignant neoplasm (principal); E04.1 Nontoxic single thyroid nodule
CPT/HCPCS: 76536

== ENCOUNTER → 2021-08-31 10:47 | Outpatient (CLI) | payer MEDICARE, SELFPAY ==
[2021-08-31 14:18] LABS: COVID19 -Nasal RAPID Negative (Negative)
== END ==
PROVIDERS: PCP Physician Assistant; Visit Provider Physical Medicine & Rehabilitation
DX: Z20.822 Contact with and (suspected) exposure to COVID-19 (principal)
CPT/HCPCS: 87635; C9803

== ENCOUNTER 2021-09-01 07:58 | Outpatient (CLI) | payer OTHER, SELFPAY ==
[2021-09-01] VITALS (9 sets, daily range): BP systolic 122–147; BP diastolic 57–87; PULSE 60–69; RESP 13–18; TEMP 36.1; O2SAT 96–99
--- NOTE | 2021-09-01 08:01 | DI.RAD.S_ITS ---
PROCEDURE: PAIN L/S TRANSFORAMINAL INJECT INDICATIONS: SPONDYLOSIS [facility], 01/09/2020, 11:13. FINDINGS: Fluoroscopic spot filming was performed to verify placement of a spinal needle at the L4-L5 level, as labeled on the films. Appropriate location of the needle tip was confirmed by injection of iodinated contrast. IMPRESSION: Intraprocedural examination within normal limits. Dictated by: Steven Moreno M.D. on 09/01/2021 at 9:51 Approved by: Steven Moreno M.D. on 09/01/2021 at 9:51
[2021-09-01] MEDS: MIDAZOLAM 2 MG/2 ML VIAL IV (09:01)
[2021-09-01] MEDS: IOPAMIDOL 15 ML VIAL 3 ML INJ (09:05)
[2021-09-01] MEDS: BUPIVACAINE 0.25% (PF) VIAL 2 ML INJ (09:06)
[2021-09-01] MEDS: BETAMETHASONE 30 MG/5 ML MDV 6 MG INJ (09:06)
[2021-09-01] MEDS: DEXAMETHASONE 10 MG/ML VIAL 20 MG INJ (09:06)
--- NOTE | 2021-09-01 09:17 | PM.PROC.IR.1 ---
Date/Time/Diagnoses Date of procedure: 09/01/21 Time of procedure: 09:17 Pre-procedure diagnosis: 1. FORAMINAL STENOSIS WITH LE SYMPTOMS Post-procedure diagnosis: same Procedure Notes Procedure: 1. FLUOROSCOPICALLY GUIDED CONTRAST CONTROLLED TRANSFORAMINAL EPIDURAL STEROID INJECTION - RIGHT L4/5 TFESI Indications: Anastacia is referred by [facility] for treatment of Foraminal Stenosis with Right LE Symptoms Physician: Tirso Crews Total Fluoroscopy time (seconds): 12 Total sedation minutes: 13 Complications: none Procedure in detail & Post-procedure care: FINDINGS Foraminal Nerve Root Compression secondary to disc disease and facet hypertrophy DESCRIPTION OF PROCEDURE Following review of allergy and review of potential side effects and complications, including, but not necessarily limited to, infection, allergic reaction, local tissue breakdown, stroke, temporary or permanent nerve injury, paralysis, and possible , the patient indicated that the patient understood and agreed to proceed. An informed consent document was signed by the patient, witnessed by a nurse, and placed in the patient's chart. Additionally, other treatment options including medications, modalities, and physical therapy were reviewed with the patient. After review of previous anaesthesic history and IV conscious sedation the patient was deemed safe to proceed with today?s procedure with IV conscious sedation as ASA class II designation. Safety time-out was performed to confirm patient ID, procedure to be performed and site of procedure. IV sedation was accomplished with a combination of 2mg of Versed was administered by the RN after DO order, titrated to patient comfort during the course of the procedure while the patient remained responsive to all verbal commands In the prone position following sterile prep and drape of the lumbar region, the right L4/5 posterior neuroforamen was identified fluoroscopically. The skin was anesthetized via a 25-gauge 1.5-inch needle with 1% lidocaine solution. At this point, a 25-gauge 3.5-inch spinal needle was atraumatically introduced and advanced under fluoroscopic guidance through the posterior right L4/5 neuroforamen to approximately the anterior aspect of the canal. Depth was confirmed on lateral view. Following negative aspiration, injection of approximately 1.5cc of Isovue 200 under live fluoroscopy in the AP view confirmed excellent flow along the nerve root, into the epidural space without vascular or intrathecal uptake observed Radiological data, including multiple fluoroscopic views of the lumbosacral spine, reveal a spinal needle at the right L4/5 posterior neuroforamen. Subsequent views show flow of contrast material flowing superiorly and inferiorly along the nerve root confirming epidural flow. Subsequently, a test dose of 1.5 cc of 1% lidocaine solution was administered and patient was observed for two minutes for signs or symptoms of complications, including abdominal pain, shortness of breath, bilateral upper or lower extremity weakness, nausea and vomiting, prior to steroid injection. At this point, a total of 3cc or 20mg of dexamethasone and 6mg of betamethasone was injected without incident. The procedure tolerated the procedure well without signs or symptoms of complications prior to transfer to the recovery area continued monitoring without incident. The patient was then transferred to the recovery area where they were observed for an appropriate time after the injection. The patient reported a VAS score of 7 prior to the procedure and a post-procedure VAS of 0. POST OP INSTRUCTIONS The patient was provided a Pain Log to continue to record their response to the target-specific procedure prior to follow-up visit with their referring physician. Additionally, specific post-injection care instructions and a contact number to our office were provided if concerns arise regarding possible complications associated with the procedure are suspected.
== END 2021-09-01 09:35 | disposition home or self-care (01) ==
LOC: RAD 08:00
PROVIDERS: PCP Physician Assistant; Referring Provider Physical Medicine & Rehabilitation; Visit Provider Physical Medicine & Rehabilitation
DX: M48.061 Spinal stenosis, lumbar region without neurogenic claudication (principal); M51.16 Intervertebral disc disorders with radiculopathy, lumbar region
CPT/HCPCS: 64483; 99152; J0702; J1100; J2250

== ENCOUNTER 2021-09-05 12:17 | Emergency (ER) | payer OTHER, SELFPAY ==
[2021-09-05 12:30] VITALS: BP 188/92; PULSE 56; RESP 16; TEMP 36.9; O2SAT 97; BMI 33.9
[2021-09-05 12:34] LABS: Appearance Urine UA CLEAR; Bilirubin Urine UA NEGATIVE (NEGATIVE); Color Urine UA YELLOW; Glucose Urine UA NEGATIVE (Negative); Ketones Urine UA NEGATIVE (NEGATIVE); Leukocyte Esterase Urine UA NEGATIVE (NEGATIVE); Nitrite Urine UA NEGATIVE (Negative); Occult Blood Urine UA NEGATIVE (Negative); Protein Urine UA NEGATIVE (Negative); Specific Gravity Urine UA 1.015 (1.000-1.035); Urobilinogen Urine UA 0.2 E.U./dL (0.2); pH Urine UA 6.5 (4.5-8.0)
[2021-09-05 12:38] VITALS: BP 188/97; PULSE 56; RESP 16; TEMP 36.9; O2SAT 97; BMI 33.9
[2021-09-05 12:42] LABS: Amorphous Sediment Urine 1+; Bacteria Urine None Seen; Culture Indicated Urine Cult Not Indicated; RBC Urine None Seen (0-5/HPF); Squamous Epithelial Cell Urine 0-1 /HPF (0-5/HPF); WBC Urine 0-1/HPF (0-5/HPF)
--- NOTE | 2021-09-05 13:02 | DI.CT.S_ITS ---
PROCEDURE: CT KIDNEY URETER BLADDER (KUB) INDICATIONS: rt flank pain w/palpation hx stones, recent bladder cystosco TECHNIQUE: Axial sections were acquired from the lung bases to the pubic symphysis. Coronal and sagittal reformats were performed. For radiation dose reduction, the following was used: automated exposure control, adjustment of mA and/or kV according to patient size. COMPARISON: [facility], CT, CT KIDNEY URETER BLADDER (KUB), 05/31/2018, 8:41. FINDINGS: Image quality: Excellent. Lung bases: Unremarkable. Heart: No significant findings. URINARY: Right Kidney: No stones or hydronephrosis. Right Ureter: No hydroureter. Left Kidney: No stones or hydronephrosis. Left Ureter: No hydroureter. Bladder: Normal wall thickness. No stones. ABDOMEN: Liver: Hepatic steatosis is present. Gallbladder: Removed. Biliary ducts: Unremarkable. Pancreas: Unremarkable. Spleen: Unremarkable. Adrenal Glands: Unremarkable. Stomach and Bowel: Stomach, small bowel loops, and colon are unremarkable. Appendix is normal. Peritoneum: No abnormal intraperitoneal fluid. No free air. Ventral Wall: Fat containing ventral hernia is present.. Abdominal Nodes: No enlarged retroperitoneal or mesenteric lymph nodes. Vessels: Aorta and inferior vena cava are normal in size. PELVIS: Pelvic Organs: Unremarkable. Pelvic Nodes: Unremarkable. Miscellaneous: Fat containing inguinal hernias are present.. Bones: Unremarkable. IMPRESSION: No renal, ureteral or bladder calculi. No obstruction. Dictated by: Zakia Soto M.D. on 09/05/2021 at 13:59 Approved by: Zakia Soto M.D. on 09/05/2021 at 14:00
--- NOTE | 2021-09-05 13:18 | ED.MALEGU ---
HPI - Male Genitourinary <Lynda Marrero, [facility] - Last Filed: 09/05/21 15:25> General Chief complaint: Urogenital-Male Stated complaint: poss uti Time Seen by Provider: 09/05/21 12:28 Source: patient Mode of arrival: Ambulatory History of Present Illness HPI Narrative: This is a 70-year-old male with history of kidney stones, and bladder tumors that were recently removed by Dr. Berkley Musa from Urology and he presents the emergency department complaining of penile pain, right-sidedFlank pain intermittently, urinary frequency and urgency, at least 10-12 episodes last night. Patient states that 3 days ago he had blood at the tip of his urethral meatus after voiding and states that he has penile pain at the moment urine starts to flow through his urethra. He had a cystoscopy by Dr. Musa 2 weeks ago and she removed a long string of tissue. Patient states that he had improved after this cystoscopy, and has not had ongoing symptoms until about 1 week ago. He is on terazosin 10 mg daily, tamsulosin 0.4 mg daily and tizanidine as needed. patient takes Cozaar and propanolol for hypertension. On chart review it is notable that patient had lumbar injection at L4-L5 on 09/01/2021. No prior urine cultures on record. Related Data Home Medications Medication Instructions Recorded Confirmed losartan 100 mg tablet (Cozaar) 100 mg PO BEDTIME #0 08/14/11 08/05/21 oxycodone-acetaminophen 5 mg-325 1 tab PO DAILY #0 02/05/16 08/05/21 mg tablet terazosin 5 mg capsule 10 mg PO DAILY 04/10/18 08/05/21 ondansetron 4 mg disintegrating 4 mg PO Q8H PRN 11/24/18 08/05/21 tablet gabapentin 300 mg capsule 300 mg PO BID 08/05/21 08/05/21 loratadine 10 mg capsule 10 mg PO DAILY 08/05/21 08/05/21 magnesium citrate 100 mg capsule 100 mg PO DAILY 08/05/21 08/05/21 naproxen sodium 220 mg capsule 220 mg PO BID PRN 08/05/21 08/05/21 omeprazole 40 mg capsule,delayed 40 mg PO DAILY 08/05/21 08/05/21 release pregabalin 50 mg capsule 50 mg PO TID 08/05/21 08/05/21 propranolol 120 mg 120 mg PO DAILY 08/05/21 08/05/21 capsule,extended release 24 hr rizatriptan 10 mg tablet (Maxalt) 10 mg PO ONCE 08/05/21 08/05/21 tamsulosin 0.4 mg capsule 0.4 mg PO DAILY 08/05/21 08/05/21 tizanidine 2 mg capsule 2 mg PO Q8H PRN 08/05/21 08/05/21 Allergies Allergy/AdvReac Type Severity Reaction Status Date / Time No Known Drug Allergies Allergy Verified 09/05/21 12:30 Review of Systems <RYAN Bowden - Last Filed: 09/05/21 15:25> Review of Systems Narrative: General: denies fever, chills, malaise, sweats, fatigue Head/Neck: denies headache, neck pain, dizziness Eyes: denies visual changes, eye pain Cardio: denies chest pain, palpitations, edema Respiratory: denies dyspnea, cough, orthopnea GI: denies abdominal pain, nausea, vomiting, or diarrhea : denies dysuria, hematuria, endorses sensation of full bladder with frequency and wearing briefs for dribbling/incontinence MSK: denies joint pain, muscle weakness Skin: denies rash, itching, skin lesions or other Neuro: denies numbness, tingling Patient History <RYAN Bowden - Last Filed: 09/05/21 15:25> Medical History Facet arthropathy, lumbosacral Foraminal stenosis of lumbosacral region Herniated nucleus pulposus, lumbar Hypertension Kidney stones Lumbosacral radiculopathy at L5 Right carpal tunnel syndrome Rotator cuff syndrome of right shoulder Ulnar tunnel syndrome of right wrist Surgical History Status post cholecystectomy Social History household members: spouse Smoking Status: Former smoker Smoking Status: Former smoker alcohol intake frequency: a few times a week Substance Use Type: marijuana Exam <RYAN Bowden - Last Filed: 09/05/21 15:25> Narrative Exam Narrative: Independently reviewed vitals signs and nursing notes. General: cooperative, comfortable, in no acute distress, well developed and well groomed Head: atraumatic, symmetrical facial expressions Neck: supple, atraumatic, without lymphadenopathy. Eyes: pupils equal round and reactive, EOMI, conjunctiva normal Nose: nares patent, no rhinorrhea Mouth/Throat: uvula midline, moist mucus membranes Cardiovascular: regular rate and rhythm, no peripheral edema, warm extremities Respiratory: normal effort, able to speak in complete sentences, no audible wheezing, stridor, or rales. No retractions or tachypnea. GI: abdomen soft, non-tender to palpation, non-distended, no masses, no exquisite tenderness with exam, without guarding or rebound. right CVA tenderness w/palpation Rectal: stool in rectal vault, unable to reach prostate by exam, pt nontender, no blood MSK: moves all extremities, ambulatory w/steady gait, neurovascularly intact, no weakness Skin: brisk capillary refill, no rash, no erythema Neuro: normal speech and cognition, A&O x3, normal tone Psych: mental status is grossly normal, congruent mood, normal affect, pleasant and cooperative, good historian Initial Vital Signs Initial Vital Signs: Vital Signs Temperature 98.5 F 09/05/21 12:30 Pulse Rate 56 L 09/05/21 12:30 Respiratory Rate 16 09/05/21 12:30 Blood Pressure 188/92 H 09/05/21 12:30 Pulse Oximetry 97 09/05/21 12:30 <Dawson Lopez DO - Last Filed: 09/05/21 16:08> Initial Vital Signs Initial Vital Signs: Vital Signs Temperature 98.5 F 09/05/21 12:30 Pulse Rate 56 L 09/05/21 12:30 Respiratory Rate 16 09/05/21 12:30 Blood Pressure 188/92 H 09/05/21 12:30 Pulse Oximetry 97 09/05/21 12:30 Course <DHAVAL BowdenP - Last Filed: 09/05/21 15:25> Orders Ordered: ED Orders 09/05/21 12:27 Urinalysis and Microscopic Stat 09/05/21 13:02 CT kidney ureter bladder (KUB) Stat 09/05/21 13:25 CBC Auto Diff [Complete Blood Count AUTO DIFF] Stat CMP [Comprehensive Metabolic Panel] Stat Procalcitonin Stat 09/05/21 14:48 UA Complete [Urinalysis and Microscopic] Stat Urine Culture Stat Discontinued Medications Lidocaine HCl (Lidocaine 2% (Glydo) 6 Ml Gel) 6 ml TOP NOW ONE Stop: 09/05/21 14:37 Last Admin: 09/05/21 14:44 Dose: 6 ml Documented by: SINDHU Oxycodone/Acetaminophen (Oxycodone/Acetaminophen 5/325 Tablet) 1 tab PO NOW ONE Stop: 09/05/21 13:03 Last Admin: 09/05/21 13:21 Dose: 1 tab Documented by: SINDHU Vital Signs Vital signs: Vital Signs - 8 hr 09/05/21 12:30 09/05/21 12:38 09/05/21 15:20 Temperature 98.5 F 98.5 F Pulse Rate 56 L 56 L 75 Respiratory Rate 16 16 18 Blood Pressure 188/92 H 188/97 H 180/90 H Pulse Oximetry 97 97 98 <Dawson Lopez DO - Last Filed: 09/05/21 16:08> Orders Ordered: ED Orders 09/05/21 12:27 Urinalysis and Microscopic Stat 09/05/21 13:02 CT kidney ureter bladder (KUB) Stat 09/05/21 13:25 CBC Auto Diff [Complete Blood Count AUTO DIFF] Stat CMP [Comprehensive Metabolic Panel] Stat Procalcitonin Stat 09/05/21 14:48 UA Complete [Urinalysis and Microscopic] Stat Urine Culture Stat Discontinued Medications Lidocaine HCl (Lidocaine 2% (Glydo) 6 Ml Gel) 6 ml TOP NOW ONE Stop: 09/05/21 14:37 Last Admin: 09/05/21 14:44 Dose: 6 ml Documented by: SINDHU Oxycodone/Acetaminophen (Oxycodone/Acetaminophen 5/325 Tablet) 1 tab PO NOW ONE Stop: 09/05/21 13:03 Last Admin: 09/05/21 13:21 Dose: 1 tab Documented by: SINDHU Vital Signs Vital signs: Vital Signs - 8 hr 09/05/21 12:30 09/05/21 12:38 09/05/21 15:20 Temperature 98.5 F 98.5 F Pulse Rate 56 L 56 L 75 Respiratory Rate 16 16 18 Blood Pressure 188/92 H 188/97 H 180/90 H Pulse Oximetry 97 97 98 MDM - Male Genitourinary <Lynda Marrero [facility] - Last Filed: 09/05/21 15:25> Lab Data Result diagrams: 09/05/21 13:25 09/05/21 13:25 Labs: Lab Results 09/05/21 09/05/21 09/05/21 Range/Units 12:27 13:25 13:25 WBC 9.8 (4.5-11.0) X10^3/uL RBC 4.84 (4.5-5.9) X10^6/uL Hgb 14.6 (13.5-17.5) g/dL Hct 42.1 (41-53) % MCV 87.1 (80-100) fL MCH 30.2 (26-34) PG MCHC 34.6 (30-36) % RDW 13.2 (11.6-14.8) % Plt Count 144 L (150-400) X10^3/uL Neut % (Auto) 65.0 (50-75) % Lymph % (Auto) 22.9 L (25-40) % Lewis % (Auto) 9.2 (3-14) % Eos % (Auto) 2.6 (2-4) % Baso % (Auto) 0.3 (0-2) % Neut # (Auto) 6300 (4314-7232) /uL Lymph # (Auto) 2200 (5519-0275) /uL Lewis # (Auto) 900 (0-900) /uL Eos # (Auto) 300 (0-450) /uL Baso # (Auto) 0 (0-100) /uL Sodium 140 (137-145) mmol/L Potassium 4.1 (3.4-5.1) mmol/L Chloride 104 (98-107) mmol/L Carbon Dioxide 28 (22-32) mmol/L BUN 24 H (9-20) mg/dL Creatinine 1.00 (0.66-1.25) mg/dL Estimated GFR > 60 (>60) mL/min BUN/Creatinine Ratio 24.0 H (6-22) Glucose 96 (80-110) mg/dL Calcium 8.7 (8.4-10.2) mg/dL Total Bilirubin 1.0 (0.2-1.3) mg/dL AST 33 (17-59) IU/L ALT 35 (<50) IU/L Alkaline Phosphatase 160 H (38-126) U/L Total Protein 7.0 (6.3-8.2) g/dL Albumin 4.2 (3.5-5.0) g/dL Globulin 2.8 (1.7-4.1) g/dL Albumin/Globulin Ratio 1.5 (1.0-2.8) Procalcitonin 0.06 (<0.5) ng/mL Urine Color Yellow Urine Appearance Clear Urine pH 6.5 (4.5-8.0) Ur Specific [place] 1.015 (1.000-1.035) Urine Protein Negative (Negative) Urine Glucose (UA) Negative (Negative) g/dL Urine Ketones Negative (NEGATIVE) Urine Occult Blood Negative (Negative) Urine Nitrate Negative (Negative) Urine Bilirubin Negative (NEGATIVE) Urine Urobilinogen 0.2 (0.2) E.U./dL Ur Leukocyte Esterase Negative (NEGATIVE) Urine RBC None seen (0-5/HPF) Urine WBC 0-1/hpf (0-5/HPF) Ur Squamous Epith Cells 0-1 /hpf (0-5/HPF) Amorphous Sediment 1+ Urine Bacteria None seen (None) Ur Culture Indicated? Cult not indicated 09/05/21 Range/Units 14:48 WBC (4.5-11.0) X10^3/uL RBC (4.5-5.9) X10^6/uL Hgb (13.5-17.5) g/dL Hct (41-53) % MCV (80-100) fL MCH (26-34) PG MCHC (30-36) % RDW (11.6-14.8) % Plt Count (150-400) X10^3/uL Neut % (Auto) (50-75) % Lymph % (Auto) (25-40) % Lewis % (Auto) (3-14) % Eos % (Auto) (2-4) % Baso % (Auto) (0-2) % Neut # (Auto) (9709-6327) /uL Lymph # (Auto) (4483-5827) /uL Lewis # (Auto) (0-900) /uL Eos # (Auto) (0-450) /uL Baso # (Auto) (0-100) /uL Sodium (137-145) mmol/L Potassium (3.4-5.1) mmol/L Chloride (98-107) mmol/L Carbon Dioxide (22-32) mmol/L BUN (9-20) mg/dL Creatinine (0.66-1.25) mg/dL Estimated GFR (>60) mL/min BUN/Creatinine Ratio (6-22) Glucose (80-110) mg/dL Calcium (8.4-10.2) mg/dL Total Bilirubin (0.2-1.3) mg/dL AST (17-59) IU/L ALT (<50) IU/L Alkaline Phosphatase (38-126) U/L Total Protein (6.3-8.2) g/dL Albumin (3.5-5.0) g/dL Globulin (1.7-4.1) g/dL Albumin/Globulin Ratio (1.0-2.8) Procalcitonin (<0.5) ng/mL Urine Color Yellow Urine Appearance Clear Urine pH 6.5 (4.5-8.0) Ur Specific [place] 1.020 (1.000-1.035) Urine Protein Negative (Negative) Urine Glucose (UA) Negative (Negative) g/dL Urine Ketones Negative (NEGATIVE) Urine Occult Blood Trace-intact (Negative) Urine Nitrate Negative (Negative) Urine Bilirubin Negative (NEGATIVE) Urine Urobilinogen 0.2 (0.2) E.U./dL Ur Leukocyte Esterase Negative (NEGATIVE) Urine RBC 1-5/hpf (0-5/HPF) Urine WBC 0-1/hpf (0-5/HPF) Ur Squamous Epith Cells 0-1 /hpf (0-5/HPF) Amorphous Sediment Urine Bacteria None seen (None) Ur Culture Indicated? Culture not indicate Imaging Data CT scan - abdomen/pelvis: Radiologist's Impression: PROCEDURE:? CT KIDNEY URETER BLADDER (KUB) ? INDICATIONS:? rt flank pain w/palpation hx stones, recent bladder cystosco ? TECHNIQUE:? Axial sections were acquired from the lung bases to the pubic symphysis.? Coronal and sagittal reformats were performed.? For radiation dose reduction, the following was used: ?automated exposure control, adjustment of mA and/or kV according to patient size.? ? COMPARISON:? [facility], CT, CT KIDNEY URETER BLADDER (KUB), 05/31/2018, 8:41. ? FINDINGS:? Image quality:? Excellent.? ? Lung bases:? Unremarkable.? ? Heart:? No significant findings. ? URINARY: Right Kidney: ? No stones or hydronephrosis.? Right Ureter:? No hydroureter.? ? Left Kidney: ? No stones or hydronephrosis. Left Ureter:? No hydroureter.? ? Bladder:? Normal wall thickness. No stones. ? ? ? ABDOMEN: Liver:? Hepatic steatosis is present. Gallbladder:? Removed.? ? Biliary ducts:? Unremarkable.? ? Pancreas:? Unremarkable.? ? Spleen:? Unremarkable.? ? Adrenal Glands:? Unremarkable.? ? ? Stomach and Bowel:? Stomach, small bowel loops, and colon are unremarkable.? Appendix is normal. Peritoneum:? No abnormal intraperitoneal fluid.? No free air.? ? Ventral Wall: ? Fat containing ventral hernia is present..? Abdominal Nodes:? No enlarged retroperitoneal or mesenteric lymph nodes.? Vessels:? Aorta and inferior vena cava are normal in size.? ? PELVIS: Pelvic Organs:? Unremarkable.? ? Pelvic Nodes: Unremarkable. Miscellaneous:? Fat containing inguinal hernias are present.. ? ? ? Bones:? Unremarkable. ? IMPRESSION:? ? No renal, ureteral or bladder calculi. ? No obstruction. ? ? ? Dictated by: Zakia Soto M.D. on 09/05/2021 at 13:59 ? ? Approved by: Zakia Soto M.D. on 09/05/2021 at 14:00 ? MDM Narrative Medical decision making narrative: This is a 70-year-old male who presents to the emergency department with urinary frequency, right-sided flank pain, urge to void for the last 4 days. States he had blood at his urethral meatus 4 days ago but no hematuria or fever, worsening flank pain, abdominal pain, nausea vomiting. Patient had a cystoscopy [address] Berkley Musa and patient states that it was all clean, no tumors, he had a strand of tissue removed from his urethra 3 weeks ago and has not had issues since then. He denies any anal receptive or participatory intercourse, he denies any fever. no significant prostate tenderness on exam although likely did not reach the prostate. CT abdomen pelvis KUB shows no urethral, renal, or bladder calculi, no hydronephrosis bilaterally, no enlarged retroperitoneal or mesenteric lymph nodes, no obstruction, full bladder on CT imaging, patient voided just prior to CT. Differential diagnoses for his acute urinary retention include pharmacologic induced that he takes including tizanidine, rizatriptan, prostatitis, BPH, malignancy. Bladder scan after postvoid was completed and shows 180ml, David catheter placed and leg bag given for acute urinary retention. Patient had over 350 mils of urine in his bladder. UA obtained from David catheter, UA and culture are pending Patient understands to follow-up with Dr. Musa in 1 week, continue his medications as prescribed, no medication changes today., patient is on max treatment of terazosin 10 mg daily and tamsulosin 0.4 mg twice daily. Patient is appropriate and amenable to discharge home. Vital signs are stable on repeat examination is unremarkable. Patient has been informed of results. Patient has been given strict return to ER precautions for any new or worsening symptoms. Patient understands to follow up closely with outpatient providers as instructed. Patient understands plan and agrees to discharge home. All questions and concerns answered at this time. <Dawson Lopez, - Last Filed: 09/05/21 16:08> Lab Data Labs: Lab Results 09/05/21 09/05/21 09/05/21 Range/Units 12:27 13:25 13:25 WBC 9.8 (4.5-11.0) X10^3/uL RBC 4.84 (4.5-5.9) X10^6/uL Hgb 14.6 (13.5-17.5) g/dL Hct 42.1 (41-53) % MCV 87.1 (80-100) fL MCH 30.2 (26-34) PG MCHC 34.6 (30-36) % RDW 13.2 (11.6-14.8) % Plt Count 144 L (150-400) X10^3/uL Neut % (Auto) 65.0 (50-75) % Lymph % (Auto) 22.9 L (25-40) % Lewis % (Auto) 9.2 (3-14) % Eos % (Auto) 2.6 (2-4) % Baso % (Auto) 0.3 (0-2) % Neut # (Auto) 6300 (5876-7476) /uL Lymph # (Auto) 2200 (4495-7959) /uL Lewis # (Auto) 900 (0-900) /uL Eos # (Auto) 300 (0-450) /uL Baso # (Auto) 0 (0-100) /uL Sodium 140 (137-145) mmol/L Potassium 4.1 (3.4-5.1) mmol/L Chloride 104 (98-107) mmol/L Carbon Dioxide 28 (22-32) mmol/L BUN 24 H (9-20) mg/dL Creatinine 1.00 (0.66-1.25) mg/dL Estimated GFR > 60 (>60) mL/min BUN/Creatinine Ratio 24.0 H (6-22) Glucose 96 (80-110) mg/dL Calcium 8.7 (8.4-10.2) mg/dL Total Bilirubin 1.0 (0.2-1.3) mg/dL AST 33 (17-59) IU/L ALT 35 (<50) IU/L Alkaline Phosphatase 160 H (38-126) U/L Total Protein 7.0 (6.3-8.2) g/dL Albumin 4.2 (3.5-5.0) g/dL Globulin 2.8 (1.7-4.1) g/dL Albumin/Globulin Ratio 1.5 (1.0-2.8) Procalcitonin 0.06 (<0.5) ng/mL Urine Color Yellow Urine Appearance Clear Urine pH 6.5 (4.5-8.0) Ur Specific [place] 1.015 (1.000-1.035) Urine Protein Negative (Negative) Urine Glucose (UA) Negative (Negative) g/dL Urine Ketones Negative (NEGATIVE) Urine Occult Blood Negative (Negative) Urine Nitrate Negative (Negative) Urine Bilirubin Negative (NEGATIVE) Urine Urobilinogen 0.2 (0.2) E.U./dL Ur Leukocyte Esterase Negative (NEGATIVE) Urine RBC None seen (0-5/HPF) Urine WBC 0-1/hpf (0-5/HPF) Ur Squamous Epith Cells 0-1 /hpf (0-5/HPF) Amorphous Sediment 1+ Urine Bacteria None seen (None) Ur Culture Indicated? Cult not indicated 09/05/21 Range/Units 14:48 WBC (4.5-11.0) X10^3/uL RBC (4.5-5.9) X10^6/uL Hgb (13.5-17.5) g/dL Hct (41-53) % MCV (80-100) fL MCH (26-34) PG MCHC (30-36) % RDW (11.6-14.8) % Plt Count (150-400) X10^3/uL Neut % (Auto) (50-75) % Lymph % (Auto) (25-40) % Lewis % (Auto) (3-14) % Eos % (Auto) (2-4) % Baso % (Auto) (0-2) % Neut # (Auto) (8170-0856) /uL Lymph # (Auto) (9447-2626) /uL Lewis # (Auto) (0-900) /uL Eos # (Auto) (0-450) /uL Baso # (Auto) (0-100) /uL Sodium (137-145) mmol/L Potassium (3.4-5.1) mmol/L Chloride (98-107) mmol/L Carbon Dioxide (22-32) mmol/L BUN (9-20) mg/dL Creatinine (0.66-1.25) mg/dL Estimated GFR (>60) mL/min BUN/Creatinine Ratio (6-22) Glucose (80-110) mg/dL Calcium (8.4-10.2) mg/dL Total Bilirubin (0.2-1.3) mg/dL AST (17-59) IU/L ALT (<50) IU/L Alkaline Phosphatase (38-126) U/L Total Protein (6.3-8.2) g/dL Albumin (3.5-5.0) g/dL Globulin (1.7-4.1) g/dL Albumin/Globulin Ratio (1.0-2.8) Procalcitonin (<0.5) ng/mL Urine Color Yellow Urine Appearance Clear Urine pH 6.5 (4.5-8.0) Ur Specific [place] 1.020 (1.000-1.035) Urine Protein Negative (Negative) Urine Glucose (UA) Negative (Negative) g/dL Urine Ketones Negative (NEGATIVE) Urine Occult Blood Trace-intact (Negative) Urine Nitrate Negative (Negative) Urine Bilirubin Negative (NEGATIVE) Urine Urobilinogen 0.2 (0.2) E.U./dL Ur Leukocyte Esterase Negative (NEGATIVE) Urine RBC 1-5/hpf (0-5/HPF) Urine WBC 0-1/hpf (0-5/HPF) Ur Squamous Epith Cells 0-1 /hpf (0-5/HPF) Amorphous Sediment Urine Bacteria None seen (None) Ur Culture Indicated? Culture not indicate Discharge Plan Departure Patient Disposition: Home Clinical Impression: Acute urinary retention Instructions: How to Care for Your David Catheter -- Male, DI for Urinary Retention in Men Activity Restrictions/Additional Instructions: You have been diagnosed with acute urinary retention, this is likely due to your prostate and not due to medication most likely. Your lab work is reassuring, as well as your UA both before and after catheterization does not show any infection. Please follow up with Berkley Musa next week for an appointment. I have sent your chart to her so she is aware. Please keep this David catheter in until your next appointment. This will stent open your urethra and prevent any urinary retention. Please remember to stay hydrated, take all of your medications as prescribed, you're currently on max treatment for benign prostatic hyperplasia. the medications include 0.4 mg of tamsulosin twice a day terazosin 10 mg daily. I do not recommend making changes to this because we have fixed your retention problem today with a catheter. Follow-up with Dr. Musa for recommendations. Thank you for trusting us with your care, I hope you will feel better over the next few days, please return to the emergency department for any worsening of your symptoms *What to do: *Please continue to take your regular medications as directed. [ ] New medication prescriptions sent to your pharmacy: [ ] [ ] New medication written as a paper prescription [ x] No new medications given *Please follow up with your primary care provider in 2-3 days, call for an appointment. Let them know you were seen in the Emergency Department and that we asked that you be seen for follow-up. We will electronically transmit a record of today's note if your PCP is in our system *If you do not have a primary care provider please contact [phone] to establish care with one of the [facility] primary care providers. *Return to Emergency Department if you should have any new, worsening or concerning symptoms, such as [fever greater than 101F, chills, worsening pain, persistent vomiting or other bothersome symptoms] Prescriptions: No Action losartan [Cozaar] 100 MG tablet 100 mg PO BEDTIME Qty: 0 0RF oxycodone-acetaminophen 5 MG/325 MG tablet 1 tab PO DAILY Qty: 0 0RF Rx Instructions: takes 1/2 tab in am and sometimes take other 1/2 mid afternoon ondansetron 4 mg Tablet,Disintegrating 4 mg PO Q8H PRN (Reason: Nausea) 0RF terazosin 5 mg capsule 10 mg PO DAILY 0RF gabapentin 300 mg capsule 300 mg PO BID 0RF rizatriptan [Maxalt] 10 mg tablet 10 mg PO ONCE 0RF Rx Instructions: as a single dose pregabalin 50 mg capsule 50 mg PO TID 0RF omeprazole 40 mg capsule,delayed release(DR/EC) 40 mg PO DAILY 0RF loratadine 10 mg capsule 10 mg PO DAILY 0RF magnesium citrate 100 mg capsule 100 mg PO DAILY 0RF naproxen sodium 220 mg capsule 220 mg PO BID PRN0RF propranolol 120 mg capsule,extended release 24hr 120 mg PO DAILY 0RF tamsulosin 0.4 mg capsule 0.4 mg PO DAILY 0RF tizanidine 2 mg capsule 2 mg PO Q8H PRN0RF Referrals: Berkley Musa MD [Non-Staff] - 3-5 days (acute urinary retention) Karen Cespedes PA-C [Primary Care Provider] - <Dawson Lopez, - Last Filed: 09/05/21 16:08> [facility] Dr Lopez Co-Sign Statement: I was available for consultation during this patient's emergency department visit. This chart is signed by myself for administrative purposes only. I did not have direct contact with this patient during this visit. They were seen independently by the APC.
[2021-09-05] MEDS: OXYCODONE/ACETAMINOPHEN 5/325 TABLET 1 TAB PO (13:21)
[2021-09-05 13:34] LABS: Add Manual Diff / Slide Review NO; Basophils Absolute Auto 0 /uL (0-100); Basophils Percent Auto 0.3 % (0-2); Eosinophils Absolute Auto 300 /uL (0-450); Eosinophils Percent Auto 2.6 % (2-4); Hematocrit 42.1 % (41-53); Hemoglobin 14.6 g/dL (13.5-17.5); Lymphocytes Absolute Auto 2200 /uL (1100-4500); Lymphocytes Percent Auto 22.9 % (25-40); Mean Corpuscular HGB Conc 34.6 % (30-36); Mean Corpuscular Hemoglobin 30.2 PG (26-34); Mean Corpuscular Volume 87.1 fL (80-100); Monocytes Absolute Auto 900 /uL (0-900); Monocytes Percent Auto 9.2 % (3-14); Neutrophils Absolute Auto 6300 /uL (1500-7000); Platelet Count 144 X10^3/uL (150-400); Red Blood Cell Count 4.84 X10^6/uL (4.5-5.9); Red Cell Distribution Width 13.2 % (11.6-14.8); White Blood Cell Count 9.8 X10^3/uL (4.5-11.0)
[2021-09-05 13:45] LABS: Alanine Aminotransferase 35 IU/L (<50); Albumin 4.2 g/dL (3.5-5.0); Albumin Globulin Ratio 1.5 (1.0-2.8); Alkaline Phosphatase 160 U/L (38-126); Aspartate Aminotransferase 33 IU/L (17-59); Blood Urea Nitrogen 24 mg/dL (9-20); Calcium 8.7 mg/dL (8.4-10.2); Carbon Dioxide 28 mmol/L (22-32); Chloride 104 mmol/L (98-107); Estimated Glomerular Filt Rate > 60 mL/min (>60); Globulin 2.8 g/dL (1.7-4.1); Glucose 96 mg/dL (80-110); HEMOLYSIS < 15 (0-50); Potassium 4.1 mmol/L (3.4-5.1); Sodium 140 mmol/L (137-145)
[2021-09-05 14:01] LABS: Procalcitonin 0.06 ng/mL (<0.5)
[2021-09-05] MEDS: LIDOCAINE 2% (GLYDO) 6 ML GEL TOP (14:44)
[2021-09-05 15:20] VITALS: BP 180/90; PULSE 75; RESP 18; O2SAT 98
[2021-09-05 15:22] LABS: Appearance Urine UA CLEAR; Bilirubin Urine UA NEGATIVE (NEGATIVE); Color Urine UA YELLOW; Glucose Urine UA NEGATIVE (Negative); Ketones Urine UA NEGATIVE (NEGATIVE); Leukocyte Esterase Urine UA NEGATIVE (NEGATIVE); Nitrite Urine UA NEGATIVE (Negative); Occult Blood Urine UA TRACE-INTACT (Negative); Protein Urine UA NEGATIVE (Negative); Urobilinogen Urine UA 0.2 E.U./dL (0.2); pH Urine UA 6.5 (4.5-8.0)
[2021-09-05 15:29] LABS: Bacteria Urine None Seen; RBC Urine 1-5/HPF (0-5/HPF); Squamous Epithelial Cell Urine 0-1 /HPF (0-5/HPF); WBC Urine 0-1/HPF (0-5/HPF)
== END 2021-09-05 15:28 | disposition home or self-care (01) ==
PROVIDERS: Emergency Medicine; Emergency Provider Nurse Practitioner Critical Care Medicine; PCP Physician Assistant
DX: R33.9 Retention of urine, unspecified (principal); N48.89 Other specified disorders of penis; R35.0 Frequency of micturition; R39.15 Urgency of urination
CPT/HCPCS: 36415; 51702; 51798; 74176; 80053; 81001; 84145; 85025; 87086; 99284

== ENCOUNTER → 2021-11-25 10:00 | Outpatient (CLI) | payer OTHER, SELFPAY ==
--- NOTE | 2021-11-25 | DI.NM.S_ITS ---
PROCEDURE: NM BONE SCAN WHOLE BODY RADIOPHARMACEUTICAL: 21.4 mCi Tc-99m MDP IV. INDICATIONS: Malignant neoplasm of prostate TECHNIQUE: Delayed whole-body scintigrams were obtained approximately 3-4 hours after intravenous injection of radiotracer. Anterior and posterior views were acquired from vertex to feet. Additional left and right oblique views of the pelvis were obtained. COMPARISON: [facility], CT, CT KIDNEY URETER BLADDER (KUB), 11/25/2021, 10:09. FINDINGS: There is a focal uptake in the left side of the occiput. A focal uptake is noted in the posterior lateral aspect of the right 6th rib. No lesions are identified in skull, sternum, clavicles, scapulae, ribs, bony pelvis, and visualized shafts of the long bones. There is low level increased uptake in cervical, thoracic and lumbar spine with distribution indistinguishable from degenerative disc and facet disease; early metastasis to spine could be obscured by degenerative changes. There are foci of increased periarticular activity compatible with degenerative/arthritic changes. Increased uptake in the paranasal area is likely related to paranasal sinus disease. Increased uptake in maxilla and mandible is presumably related to dental disease. IMPRESSION: 1. A focal uptake projecting to the left side of the occiput, and a focal uptake in the posterior lateral aspect of right 6th rib. Recommend radiographic or CT correlation. 2. No definitive scintigraphic findings to suggest osseous metastasis elsewhere. Dictated by: Cecil Allen M.D. on 11/25/2021 at 16:54 Approved by: Cecil Allen M.D. on 11/25/2021 at 17:08
--- NOTE | 2021-11-25 | DI.CT.S_ITS ---
PROCEDURE: CT KIDNEY URETER BLADDER (KUB) INDICATIONS: Malignant neoplasm of prostate TECHNIQUE: Axial sections were acquired from the lung bases to the pubic symphysis. Coronal and sagittal reformats were performed. For radiation dose reduction, the following was used: automated exposure control, adjustment of mA and/or kV according to patient size. COMPARISON: None. FINDINGS: Image quality: Excellent. Lung bases: Unremarkable. Heart: No significant findings. URINARY: Right Kidney: No stones or hydronephrosis. Right Ureter: No hydroureter. Left Kidney: No stones or hydronephrosis. There is an 11 mm simple appearing cyst along the lateral aspect left kidney. Left Ureter: No hydroureter. Bladder: Normal wall thickness. No stones. ABDOMEN: Liver: Unremarkable. Gallbladder: Removed. Biliary ducts: Unremarkable. Pancreas: Unremarkable. Spleen: The spleen is mildly enlarged, measuring 14.7 cm in greatest axial dimension. No focal splenic lesion can be seen. Adrenal Glands: Unremarkable. Stomach and Bowel: Stomach, small bowel loops, and colon are unremarkable. A normal appendix is incidentally noted. Peritoneum: No abnormal intraperitoneal fluid. No free air. Ventral Wall: No hernia. Abdominal Nodes: No enlarged retroperitoneal or mesenteric lymph nodes. Vessels: Aorta and inferior vena cava are normal in size. PELVIS: Pelvic Organs: Unremarkable. Pelvic Nodes: Unremarkable. Miscellaneous: There is a fat containing left inguinal hernia. Bones: No blastic lesions are seen. Degenerative changes are seen throughout, which are worst at L4-L5 and L5-S1. IMPRESSION: No renu findings of metastatic disease can be seen. Incidental note is made of: Cholecystectomy 11 mm simple appearing left renal cyst Normal appendix Focal lower lumbar spine degenerative change Fat containing left inguinal hernia. Dictated by: Steven Moreno M.D. on 11/25/2021 at 10:56 Approved by: Steven Moreno M.D. on 11/25/2021 at 10:59
== END ==
PROVIDERS: PCP Physician Assistant; Referring Provider Urology; Visit Provider Urology
DX: C61 Malignant neoplasm of prostate (principal); K40.90 Unilateral inguinal hernia, without obstruction or gangrene, not specified as recurrent; N28.1 Cyst of kidney, acquired; M47.816 Spondylosis without myelopathy or radiculopathy, lumbar region; Z98.890 Other specified postprocedural states; Z90.79 Acquired absence of other genital organ(s); Z90.49 Acquired absence of other specified parts of digestive tract
CPT/HCPCS: 74176; 78306; A9503

== ENCOUNTER → 2021-12-15 09:28 | Outpatient (CLI) | payer OTHER, SELFPAY ==
--- NOTE | 2021-12-15 | DI.RAD.S_ITS ---
PROCEDURE: XR RIBS RT 2V INDICATIONS: pain in right side, PET showed possible rib fx TECHNIQUE: 2 views of the right ribs were acquired. COMPARISON: [place], [place], [place] BONE SCAN WHOLE BODY, 11/25/2021, 12:02. FINDINGS: Surgical changes and devices: Cholecystectomy clips. Marker at the inferior right 10th rib. Bones and chest wall: Right 6th rib fracture. This corresponds to the area of uptake on recent bone scan. There is callus formation. No aggressive appearing at lesion identified. Overlying soft tissues appear unremarkable. Lungs and pleura: The visualized lung appears clear. No pleural effusions or pneumothorax are visible. IMPRESSION: Findings most consistent with prior right-sided 6th rib fracture. No aggressive appearing lesion is identified. No lesion in the region of the skin marker at the right inferior 10th rib. If concern for occult lesion consider CT of the chest. Dictated by: Prabhakar Durant M.D. on 12/15/2021 at 10:04 Approved by: Prabhakar Durant M.D. on 12/15/2021 at 10:08
== END ==
PROVIDERS: PCP Physician Assistant; Referring Provider Physician Assistant; Visit Provider Physician Assistant
DX: S22.31XA Fracture of one rib, right side, initial encounter for closed fracture (principal); R07.81 Pleurodynia; M54.6 Pain in thoracic spine; G89.29 Other chronic pain
CPT/HCPCS: 71100

== ENCOUNTER → 2022-03-16 09:49 | Outpatient (CLI) | payer OTHER, SELFPAY ==
[2022-03-16 13:03] LABS: Prostate Specific Antigen < 0.064 ng/mL (0.10-4.00)
== END ==
PROVIDERS: PCP Physician Assistant; Referring Provider Nurse Practitioner Family; Visit Provider Nurse Practitioner Family
DX: C61 Malignant neoplasm of prostate (principal)
CPT/HCPCS: 36415; 84153

== ENCOUNTER 2022-06-14 11:56 | Day surgery (SDC) | payer OTHER, SELFPAY ==
--- NOTE | 2022-06-14 | PATH_ITS ---
[facility] Accession Number: [id number] No. of containers..04 Tissue . 01 Material submitted: . PART A: colon - CECUM POLYPS X6 PART B: colon - ASCENDING COLON POLYPS X4 PART C: colon - RECTAL/SIGMOID COLON POLYP PART D: rectum - RECTAL POLYP . 01 Diagnosis: A. Cecum, Polyps x6, Biopsies: Tubular adenomas. . B. Ascending Colon, Polyps x4, Biopsies: Tubular adenomas, three fragments. . C. Rectal/Sigmoid Colon, Polyp, Biopsy: Hyperplastic polyp. . D. Rectum, Polyp, Biopsy: Inflammatory polyp. Negative for dysplasia and malignancy. MRV 06/18/2022 1306 Local . 01 Electronically signed: . Lynda Church MD, Pathologist NPI- [id number] . 01 Gross description: . Part A: CECUM POLYPS X6: Received in formalin are multiple fragment(s) of villareal, soft tissue measuring 2.7 x 0.7 x 0.1 cm in aggregate submitted entirely in 1 cassette(s) Part B: ASCENDING COLON POLYPS X4: Received in formalin are 3 fragment(s) of villareal, soft tissue measuring 0.4 x 0.2 x 0.1 cm to 0.3 x 0.1 x 0.1 cm submitted entirely in 1 cassette(s) Part C: RECTAL/SIGMOID COLON POLYP: Received in formalin is 1 fragment(s) of villareal, soft tissue measuring 0.3 x 0.2 x 0.2 cm submitted entirely in 1 cassette(s) Part D: RECTAL POLYP: Received in formalin is 1 fragment(s) of villareal, soft tissue measuring 0.2 x 0.1 x 0.1 cm submitted entirely in 1 cassette(s) /CPE 06/15/2022 0700 Local . 01 Pathologist provided ICD-10: D12.0, D12.2 . 01 CPT . 418910, 285224, [id number], [id number] Specimen Comment: A courtesy copy of this report has been sent to [phone] Performed at: 01 [facility] [address] [place] [id number] MD Paul Packer MD Phone: [phone]
[2022-06-14] MEDS: LACTATED RINGERS 1,000 ML 42 ML IV (12:18)
[2022-06-14 12:28] VITALS: BP 172/98; PULSE 63; RESP 17; TEMP 36.6; O2SAT 98; BMI 33.9
--- NOTE | 2022-06-14 12:55 | PM.HP.1 ---
History of Present Illness History of Present Illness Date Patient Seen: 06/14/22 Time Patient Seen: 12:55 Chief complaint: Colonoscopy Narrative: Personal history of colon polyps. He has a genetic predisposition to polyps. He could not remember the name. I have not seen the results of that consult. He has been told he needs a colonoscopy every year. The last 1 was approximately 1 year ago. Patient History Medical History Facet arthropathy, lumbosacral Foraminal stenosis of lumbosacral region Herniated nucleus pulposus, lumbar Hypertension Kidney stones Lumbosacral radiculopathy at L5 Right carpal tunnel syndrome Rotator cuff syndrome of right shoulder Ulnar tunnel syndrome of right wrist Surgical History Status post cholecystectomy Family & Social History Social History: household members spouse Tobacco & Substance use: Smoking Status Former smoker alcohol intake frequency a few times a month Substance Use Type marijuana Meds Home Medications and Allergies Home Medications Medication Instructions Recorded Confirmed Type losartan 100 mg tablet (Cozaar) 100 mg PO BEDTIME ##0 08/14/11 06/14/22 History oxycodone-acetaminophen 5 mg-325 1 tab PO DAILY ##0 02/05/16 06/14/22 History mg tablet ondansetron 4 mg disintegrating 4 mg PO Q8H PRN Nausea 11/24/18 06/14/22 History tablet gabapentin 300 mg capsule 300 mg PO BID 08/05/21 06/14/22 History loratadine 10 mg capsule 10 mg PO DAILY 08/05/21 06/14/22 History magnesium citrate 100 mg capsule 100 mg PO DAILY 08/05/21 06/14/22 History omeprazole 40 mg capsule,delayed 40 mg PO DAILY 08/05/21 06/14/22 History release propranolol 120 mg 120 mg PO DAILY 08/05/21 06/14/22 History capsule,extended release 24 hr rizatriptan 10 mg tablet (Maxalt) 10 mg PO ONCE 08/05/21 06/14/22 History tizanidine 2 mg capsule 2 mg PO Q8H PRN Sleep 08/05/21 06/14/22 History Allergies Allergy/AdvReac Type Severity Reaction Status Date / Time No Known Drug Allergies Allergy Verified 06/08/22 13:37 Review of Systems Review of Systems ROS: Yes All systems reviewed with the patient and are negative except as otherwise documented Exam Vital Signs (past 8 hours): - 06/14/22 12:28 Temperature 97.8 F Pulse Rate 63 Respiratory Rate 17 Blood Pressure 172/98 H Pulse Oximetry 98 Const General: cooperative HENMT Head: normal to inspection Eyes General: appearance normal, both eyes and all related structures Neck Neck: normal visual inspection Chest Chest: normal inspection of the chest Resp Effort & Inspection: normal respiratory effort Cardio Rate: regular rate GI Inspection: normal to inspection Skin General: no rashes or lesions noted Neuro General: patient alert and patient awake Extrem General: normal to inspection and no pedal edema Psych Appearance: grossly normal Assessment & Plan Assessment & Plan narrative: 71-year-old male with a genetic predisposition to adenomatous colon polyps. Surveillance colonoscopy is pursued today. Time Spent With Patient Critical Care time: I spent a total of [] minutes of critical care time on this patient's care today; this time is exclusive of procedural time.
--- NOTE | 2022-06-14 13:15 | PM.PREOP ---
Pre-operative Note Interval Note History & Physical reviewed/Exam performed by Physician: Yes Changes to H&P: No ASA Class (for procedural sedation): II
--- NOTE | 2022-06-14 14:30 | PM.OP.COLON ---
Operative Date/Time/Diagnoses Date of procedure: 06/14/22 Time of procedure: 14:30 Pre-op diagnosis: Genetic predisposition to multiple adenomatous colon polyps Post-op diagnosis: same Procedure & Clinicians Study performed: Colonoscopy with hot snare polypectomy cold snare polypectomy and cold forceps polypectomy. Same procedure as scheduled: Yes Indications: Genetic predisposition to multiple adenomatous colon polyps Surgeon: Onel Rivas Procedure Notes SCOAP/Timeout: Done Procedure in detail: After the risks and benefits were explained, written and verbal informed consent was obtained. The patient was brought into the procedure room and placed into the left lateral decubitus position. Please see anesthesia notes for sedation details. Digital rectal examination was accomplished. The scope was introduced into the patient and advanced under direct visualization to the cecum as identified by the appendiceal orifice and ileocecal valve. The scope was slowly withdrawn to carefully examine the mucosa for any defects or lesions. Comprehensive imaging was accomplished throughout the rectum including the dentate line. The colon was decompressed, the scope was then removed from the patient who tolerated the procedure well. Twenty-two modifier is requested for this procedure as the case was prolonged (44 minutes of service time). Adult colonoscope Bowel prep fair but with copious irrigation and suction was rendered adequate Scope withdrawal time: 33 minutes Sedation minutes: 44 Complications: none Impression: The patient had a fairly lengthy colon. There were numerous hyperplastic diminutive appearing polyps in the left colon. The vast majority of these were left alone. There was 1 that was a little larger than all of the others at around the rectosigmoid measuring approximately 6-7 mm and this was removed with hot snare. In the rectum there was another very diminutive polyp perhaps 3 mm that looked a little different from the other hyperplastic appearing polyps and this was addressed with cold snare. The site was then cauterized with the tip of the snare for insurance that all of this polyp had been ablated. There were 6 sessile polyps in the cecum measuring between 3 and 6 mm. These were addressed with cold snare. In the ascending and transverse there were an additional 4 small sessile polyps ranging in size from 5-6 mm also removed with cold snare. No additional significant pathology was appreciated throughout. Endoscopic diagnosis Multiple colon polyps Post-procedure Plan for aftercare: 1. Await histopathology. 2. Repeat colonoscopy in a 1 hour slot in 1 year. Disposition: PACU
[2022-06-14 14:33] VITALS: BP 136/78; PULSE 80; RESP 22; TEMP 36.6; O2SAT 97
[2022-06-14 14:38] VITALS: BP 141/84; PULSE 69; RESP 14; TEMP 36.6; O2SAT 97
[2022-06-14 14:43] VITALS: BP 155/89; PULSE 69; RESP 15; TEMP 36.3; O2SAT 97
[2022-06-14 14:48] VITALS: BP 159/99; PULSE 63; RESP 14; TEMP 36.6; O2SAT 98
[2022-06-14 14:56] VITALS: BP 145/88; PULSE 64; RESP 18; TEMP 36.6; O2SAT 97
== END 2022-06-14 15:10 | disposition home or self-care (01) ==
PROVIDERS: PCP Physician Assistant; Referring Provider Internal Medicine Gastroenterology; Visit Provider Internal Medicine Gastroenterology
PROC: 0DJD8ZZ Inspection of Lower Intestinal Tract, Via Natural or Artificial Opening Endoscopic (ICD-10-PCS; CPT 45378; principal; 2022-06-14 13:30)
DX: Z12.11 Encounter for screening for malignant neoplasm of colon (principal); Z86.010 Personal history of colon polyps; D12.0 Benign neoplasm of cecum; D12.2 Benign neoplasm of ascending colon; K62.1 Rectal polyp
CPT/HCPCS: 45385; J2704

== ENCOUNTER → 2022-08-25 07:43 | Outpatient (CLI) | payer OTHER, SELFPAY ==
--- NOTE | 2022-08-25 07:45 | DI.RAD.S_ITS ---
PROCEDURE: XR LUMBAR SPINE MIN 4V INDICATIONS: BACK AND FOOT PAIN TECHNIQUE: 5 views of the lumbar spine were acquired, including bilateral oblique views. COMPARISON: [facility], MR, MR LUMBAR SPINE WO CON, 12/28/2019, 9:47. [facility], CR, XR LUMBAR SPINE WITH OLBIQUES PLUS FLEXION EXTENSION, 12/20/2019, 15:19. FINDINGS: Bones: 5 uun-jim-oymbxck vertebrae are present. There is normal bony alignment. No vertebral body compression fractures. No suspicious bony lesions. Degenerative disc disease, severe at L4-L5, moderate at L1-L2 and L2-L3 and mild at other levels. Bilateral facet arthropathy at L4-L5 and L5-S1. Soft tissues: Overlying bowel gas pattern is normal. No suspicious soft tissue calcifications. Cholecystectomy clips are noted. Oblique images: No pars defects. IMPRESSION: Degenerative disc and facet disease in lumbar spine. Dictated by: Cecil Allen M.D. on 08/25/2022 at 9:26 Approved by: Cecil Allen M.D. on 08/25/2022 at 9:37
== END ==
PROVIDERS: PCP Physician Assistant; Referring Provider Physical Medicine & Rehabilitation; Visit Provider Physical Medicine & Rehabilitation
DX: M48.07 Spinal stenosis, lumbosacral region (principal); M47.27 Other spondylosis with radiculopathy, lumbosacral region; M47.26 Other spondylosis with radiculopathy, lumbar region; M51.16 Intervertebral disc disorders with radiculopathy, lumbar region; M51.17 Intervertebral disc disorders with radiculopathy, lumbosacral region; M75.101 Unspecified rotator cuff tear or rupture of right shoulder, not specified as traumatic; M53.3 Sacrococcygeal disorders, not elsewhere classified; G56.21 Lesion of ulnar nerve, right upper limb; G89.29 Other chronic pain
CPT/HCPCS: 72110; 99214

== ENCOUNTER 2022-10-05 09:42 | Outpatient (CLI) | payer MEDICARE, SELFPAY ==
[2022-10-05] VITALS (9 sets, daily range): BP systolic 142–180; BP diastolic 81–99; PULSE 52–72; RESP 11–20; O2SAT 96–99
--- NOTE | 2022-10-05 10:00 | P.PCN_ITS ---
Date/Time/Diagnoses Date of procedure: 10/05/22 Time of procedure: 10:00 Pre-procedure diagnosis: 1. FORAMINAL STENOSIS WITH LE SYMPTOMS Post-procedure diagnosis: same Procedure Notes Procedure: 1. FLUOROSCOPICALLY GUIDED CONTRAST CONTROLLED TRANSFORAMINAL EPIDURAL STEROID INJECTION - RIGHT L4/5 TFESI Indications: Anastacia is referred by ALESSANDRA Mon for treatment of Foraminal Stenosis with Right LE Symptoms Physician: Tirso Crews Total Fluoroscopy time (seconds): 14 Total sedation minutes: 13 Complications: none Procedure in detail & Post-procedure care: FINDINGS Foraminal Nerve Root Compression secondary to disc disease and facet hypertrophy DESCRIPTION OF PROCEDURE Following review of allergy and review of potential side effects and complications, including, but not necessarily limited to, infection, allergic reaction, local tissue breakdown, stroke, temporary or permanent nerve injury, paralysis, and possible , the patient indicated that the patient understood and agreed to proceed. An informed consent document was signed by the patient, witnessed by a nurse, and placed in the patient's chart. Additionally, other treatment options including medications, modalities, and physical therapy were reviewed with the patient. After review of previous anaesthesic history and IV conscious sedation the patient was deemed safe to proceed with today?s procedure with IV conscious sedation as ASA class II designation. Safety time-out was performed to confirm patient ID, procedure to be performed and site of procedure. IV sedation was accomplished with a combination of 2mg of Versed was administered by the RN after DO order, titrated to patient comfort during the course of the procedure while the patient remained responsive to all verbal commands In the prone position following sterile prep and drape of the lumbar region, the right L4/5 posterior neuroforamen was identified fluoroscopically. The skin was anesthetized via a 25-gauge 1.5-inch needle with 1% lidocaine solution. At this point, a 22-gauge 5-inch spinal needle was atraumatically introduced and advanced under fluoroscopic guidance through the posterior right L4/5 neuroforamen to approximately the anterior aspect of the canal. Depth was confirmed on lateral view. Following negative aspiration, injection of approximately 1.5cc of Isovue 200 under live fluoroscopy in the AP view con firmed excellent flow along the nerve root, into the epidural space without vascular or intrathecal uptake observed Radiological data, including multiple fluoroscopic views of the lumbosacral spine, reveal a spinal needle at the right L4/5 posterior neuroforamen. Subsequent views show flow of contrast material flowing superiorly and inferiorly along the nerve root confirming epidural flow. Subsequently, a test dose of 1.5 cc of 1% lidocaine solution was administered and patient was observed for two minutes for signs or symptoms of complications, including abdominal pain, shortness of breath, bilateral upper or lower extremity weakness, nausea and vomiting, prior to steroid injection. At this point, a total of 3cc or 20mg of dexamethasone and 6mg of betamethasone was injected without incident. The procedure tolerated the procedure well without signs or symptoms of complications prior to transfer to the recovery area continued monitoring without incident. The patient was then transferred to the recovery area where they were observed for an appropriate time after the injection. The patient reported a VAS score of 7 prior to the procedure and a post- procedure VAS of 0. POST OP INSTRUCTIONS The patient was provided a Pain Log to continue to record their response to the target-specific procedure prior to follow-up visit with their referring p coleen. Additionally, specific post-injection care instructions and a contact number to our office were provided if concerns arise regarding possible complications associated with the procedure are suspected.
--- NOTE | 2022-10-05 10:02 | DI.RAD.S_ITS ---
PROCEDURE: PAIN L/S TRANSFORAMINAL INJECT INDICATIONS: SPONDYLOSIS COMPARISON: None. FINDINGS: Fluoroscopic spot filming was performed to verify placement of spinal needles at the L4-5 level(s), as labeled on the films. Appropriate location(s) of the needle tip(s) was confirmed by injection of iodinated contrast. IMPRESSION: Needle placement overlying L4-5. Dictated by: Zakia Soto M.D. on 10/05/2022 at 17:17 Approved by: Zakia Soto M.D. on 10/05/2022 at 17:17
[2022-10-05] MEDS: MIDAZOLAM 2 MG/2 ML VIAL IV (10:25)
[2022-10-05] MEDS: IOPAMIDOL 15 ML VIAL 3 ML INJ (10:30)
[2022-10-05] MEDS: DEXAMETHASONE 10 MG/ML VIAL 20 MG INJ (10:30)
[2022-10-05] MEDS: BUPIVACAINE 0.25% (PF) VIAL 2 ML INJ (10:30)
[2022-10-05] MEDS: BETAMETHASONE 30 MG/5 ML MDV 6 MG INJ (10:30)
== END 2022-10-05 11:11 | disposition home or self-care (01) ==
LOC: RAD 09:44
PROVIDERS: PCP Physician Assistant; Referring Provider Physical Medicine & Rehabilitation; Visit Provider Physical Medicine & Rehabilitation
DX: M48.061 Spinal stenosis, lumbar region without neurogenic claudication; M51.16 Intervertebral disc disorders with radiculopathy, lumbar region; M47.26 Other spondylosis with radiculopathy, lumbar region
CPT/HCPCS: 64483; 99152; J0702; J1100; J2250; J3490

== ENCOUNTER 2022-11-02 08:10 | Outpatient (CLI) | payer OTHER, SELFPAY ==
[2022-11-02] VITALS (8 sets, daily range): BP systolic 129–168; BP diastolic 67–94; PULSE 52–62; RESP 14–20; TEMP 36.4; O2SAT 95–98
--- NOTE | 2022-11-02 08:13 | DI.RAD.S_ITS ---
PROCEDURE: PAIN SI JOINT INJECTION INDICATIONS: COCCYGEAL DISORDER COMPARISON: [facility], CR, XR LUMBAR SPINE MIN 4V, 08/25/2022, 7:52. [place] BONE SCAN WHOLE BODY, 11/25/2021, 12:02. FINDINGS: Fluoroscopic spot filming was performed to verify placement of spinal needles at the coccyx level(s), as labeled on the films. Appropriate location(s) of the needle tip(s) was confirmed by injection of iodinated contrast. IMPRESSION: Fluoroscopy guidance for pain management. Dictated by: Cecil Allen M.D. on 11/02/2022 at 13:58 Approved by: Cecil Allen M.D. on 11/02/2022 at 13:59
[2022-11-02] MEDS: MIDAZOLAM 2 MG/2 ML VIAL IV (09:27)
[2022-11-02] MEDS: BUPIVACAINE 0.5% (PF) 10 ML VIAL 2 ML INJ (09:32)
[2022-11-02] MEDS: BETAMETHASONE 30 MG/5 ML MDV 12 MG INJ (09:33)
[2022-11-02] MEDS: IOPAMIDOL 15 ML VIAL 3 ML INJ (09:33)
--- NOTE | 2022-11-02 09:47 | PM.PROC.IR.1 ---
Date/Time/Diagnoses Date of procedure: 11/02/22 Time of procedure: 09:47 Pre-procedure diagnosis: Coccydynia Procedure Notes Procedure: Fluoroscopically guided contrast controlled Coccyx Injection Indications: Coccydynia Physician: Tirso Crews Total Fluoroscopy time (seconds): 12 Total sedation minutes: 13 Procedure in detail & Post-procedure care: DESCRIPTION OF PROCEDURE Fluoroscopic guided, contrast controlled coccyx injection Following review of allergies and review of potential side effects and complications, including, but not necessarily limited to, infection, allergic reaction, local tissue breakdown, temporary as well as permanent nerve injury, paralysis, stroke and possible , the patient indicated that they understood and agreed to proceed. An informed consent was signed by the patient, witnessed by a nurse, and placed in the patient's chart. Additionally, other treatment options including modalities, medications, and physical therapy were reviewed with the patient. After review of previous anaesthesic history and IV conscious sedation the patient was deemed safe to proceed with today?s procedure with IV conscious sedation as ASA class II designation. Safety time-out was performed to confirm patient ID, procedure to be performed and site of procedure. IV sedation was accomplished with a combination of 2mg of Versed administered by the RN after DO order, titrated to patient comfort during the course of the procedure while the patient remained responsive to all verbal commands. In the prone position following sterile prep and drape of the pelvic region, the hyper lucency on in the inferior aspect of the coccyx joint was identified fluoroscopically the skin was anesthetized be a 25 gauge 1 eventual with approximately 2cc of 1% lidocaine solution. At this point, a 22 gauge 3inch spinal needle was atraumatically introduced and advanced under fluoroscopic guidance into the inferior aspect of the left sacroiliac joint. Following negative aspiration, approximately 0.3cc of Isovue-300 was injected confirming intra-articular placement without vascular uptake. Radiographic data, including multiple fluoroscopic views of the pelvis, reveals a spinal needle in the coccyx. Subsequent view show flow contrast tear superiorly and inferiorly within the joint capsule without vascular intrathecal uptake. At this point a total of 1cc or 0.5% Marcaine was combined with 1cc of 6mg of betamethasone was injected without incident. The patient tolerated the procedure well without signs or symptoms of complications prior to transfer to the recovery area for further monitoring. The patient was then transferred to the recovery area with a bur observed for an appropriate time after the injection. The patient reverted a vas score of 7 prior to the procedure and postprocedure vas of 1. POSTOP INSTRUCTIONS The patient was provided with a pain like to continue to record the patient's response to the target specific procedure prior to the patient's follow-up visit with the referring physician. Additionally, specific post injection care instructions and a contact number to our office were provided if concerns arise regarding the possible complications associated with procedure are suspected.
== END 2022-11-02 10:03 | disposition home or self-care (01) ==
LOC: RAD 08:12
PROVIDERS: PCP Physician Assistant; Referring Provider Physical Medicine & Rehabilitation; Visit Provider Physical Medicine & Rehabilitation
DX: M53.3 Sacrococcygeal disorders, not elsewhere classified (principal)
CPT/HCPCS: 27096; 99152; J0702; J2250

== ENCOUNTER 2023-03-15 15:01 | Outpatient (CLI) | payer OTHER, SELFPAY ==
[2023-03-15] VITALS (8 sets, daily range): BP systolic 135–200; BP diastolic 77–106; PULSE 53–61; RESP 15–20; TEMP 36.6; O2SAT 94–98
--- NOTE | 2023-03-15 15:05 | DI.RAD.S_ITS ---
PROCEDURE: PAIN SI JOINT INJECTION INDICATIONS: SACROILIAC DISORDER COMPARISON: [facility], XA, PAIN SI JOINT INJECTION, 11/02/2022, 9:32. FINDINGS: Fluoroscopic spot filming was performed to verify placement of spinal needles at the inferior right SI joint level(s), as labeled on the films. Appropriate location(s) of the needle tip(s) was confirmed by injection of iodinated contrast. IMPRESSION: Access needle position in the inferior right SI joint for SI joint injection. Dictated by: Albina Dias MD, PhD on 03/15/2023 at 16:29 Approved by: Albina Dias MD, PhD on 03/15/2023 at 16:30
[2023-03-15] MEDS: MIDAZOLAM 2 MG/2 ML VIAL IV (15:50)
[2023-03-15] MEDS: BETAMETHASONE 30 MG/5 ML MDV 12 MG INJ (15:52)
[2023-03-15] MEDS: iopamidoL 15 ML VIAL 3 ML INJ (15:52)
[2023-03-15] MEDS: BUPIVACAINE 0.5% (PF) 10 ML VIAL 2 ML INJ (15:53)
--- NOTE | 2023-03-15 16:04 | PM.PROC.IR.1 ---
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 An informed consent was signed by the patient, witnessed by a nurse, and placed in the patient's chart. Additionally, other treatment options including modalities, medications, and physical therapy were reviewed with the patient. After review of previous anaesthesic history and IV conscious sedation the patient was deemed safe to proceed with today?s procedure with IV conscious sedation as ASA class II designation. Safety time-out was performed to confirm patient ID, procedure to be performed and site of procedure. IV sedation was accomplished with a combination of 2mg of Versed administered by the RN after DO order, titrated to patient comfort during the course of the procedure while the patient remained responsive to all verbal commands. In the prone position following sterile prep and drape of the pelvic region, the hyper lucency on in the inferior aspect of the left sacroiliac joint was identified fluoroscopically the skin was anesthetized be a 25 gauge 1 eventual with approximately 2cc of 1% lidocaine solution. At this point, a 22 gauge 3inch spinal needle was atraumatically introduced and advanced under fluoroscopic guidance into the inferior aspect of the left sacroiliac joint. Following negative aspiration, approximately 0.3cc of Isovue-300 was injected confirming intra-articular placement without vascular uptake. Radiographic data, including multiple fluoroscopic views of the pelvis, reveals a spinal needle in the left sacroiliac joint hyper lucent zone. Subsequent view show flow contrast tear superiorly and inferiorly within the joint capsule without vascular intrathecal uptake. At this point a total of 1cc or 0.5% Marcaine was combined with 1cc of 6mg of betamethasone was injected without incident. The patient tolerated the procedure well without signs or symptoms of complications prior to transfer to the recovery area for further monitoring. The patient was then transferred to the recovery area with a bur observed for an appropriate time after the injection. The patient reverted a vas score of 7 prior to the procedure and postprocedure vas of 1. POSTOP INSTRUCTIONS The patient was provided with a pain like to continue to record the patient's response to the target specific procedure prior to the patient's follow-up visit with the referring physician. Additionally, specific post injection care instructions and a contact number to our office were provided if concerns arise regarding the possible complications associated with procedure are suspected.
== END 2023-03-15 16:27 | disposition home or self-care (01) ==
PROVIDERS: PCP Physician Assistant; Referring Provider Physical Medicine & Rehabilitation; Visit Provider Physical Medicine & Rehabilitation
DX: M53.3 Sacrococcygeal disorders, not elsewhere classified (principal); M46.1 Sacroiliitis, not elsewhere classified
CPT/HCPCS: 27096; 77002; 99152; J0702; J2250

== ENCOUNTER → 2023-04-27 15:19 | Outpatient (CLI) | payer OTHER, SELFPAY ==
--- NOTE | 2023-04-27 | DI.US.S_ITS ---
PROCEDURE: US RENAL COMPLETE INDICATIONS: Calculus of kidney, Nausea, Vomiting TECHNIQUE: Real-time scanning was performed of the kidneys and bladder, with image documentation. COMPARISON: None. FINDINGS: Kidneys: Kidneys are normal in size. Right kidney measures 10.9 cm long; left kidney measures 11.9 cm long. Right renal cortical thickness is 1.6 cm; left renal cortical thickness is 1.6 cm. Renal cortical echotexture is normal. No hydronephrosis or nephrolithiasis. No suspicious solid mass lesions. There is a 1.6 cm diameter simple left renal cyst in the midpole. Bladder: Bladder was not distended at the time of the study. Pre-void images demonstrate no intraluminal masses or stones. On pre-void images, neither ureteral jets are noted with color Doppler interrogation. (Of note, ureteral jets may not be detectable in up to 25% of cases due to insufficient differences in specific gravity between ureteral and bladder urine). Miscellaneous: No free pelvic fluid. IMPRESSION: No hydronephrosis. No nephrolithiasis. Dictated by: Kassy Gordon M.D. on 04/27/2023 at 16:55 Approved by: Kassy Gordon M.D. on 04/27/2023 at 16:56
== END ==
PROVIDERS: PCP Physician Assistant; Referring Provider Physician Assistant; Visit Provider Physician Assistant
DX: N20.0 Calculus of kidney (principal); R11.0 Nausea
CPT/HCPCS: 76770

== ENCOUNTER 2023-07-18 07:39 | Day surgery (SDC) | payer OTHER, SELFPAY ==
--- NOTE | 2023-07-18 | PATH_ITS ---
[facility] Accession Number: [id number] No. of containers..03 Tissue . 01 Material submitted: . PART A: ileo-cecal valve - ILEOCECAL VALVE POLYP PART B: colon - TRANSVERSE COLON POLYP PART C: colon - DESCENDING COLON POLYP . 01 Diagnosis: Part A: ILEOCECAL VALVE POLYP: Tubular adenoma. . Part B: TRANSVERSE COLON POLYP: Tubular adenoma. . Part C: DESCENDING COLON POLYP: Tubular adenoma. [facility] 07/25/2023 1448 Local . 01 Electronically signed: . Paul Packer MD, Pathologist NPI- [id number] . 01 Gross description: . Part A: ILEOCECAL VALVE POLYP: Received in formalin is 1 fragment(s) of villareal, soft tissue measuring 0.3 x 0.3 x 0.2 cm submitted entirely in 1 cassette(s) . Part B: TRANSVERSE COLON POLYP: Received in formalin is 1 fragment(s) of villareal, soft tissue measuring 0.6 x 0.5 x 0.5 cm submitted entirely in 1 cassette(s) . Part C: DESCENDING COLON POLYP: Received in formalin is 1 fragment(s) of villareal, soft tissue measuring 0.7 x 0.2 x 0.2 cm submitted entirely in 1 cassette(s) /JUAN 07/25/2023 1448 Local . 01 Pathologist provided ICD-10: D12.0, D12.3, D12.4 . 01 CPT . 835836, 046403, 873814 Specimen Comment: A courtesy copy of this report has been sent to [phone] Performed at: 01 [facility] [address] [place] [address] [address], [place], [place] [id number] MD Paul Packer MD Phone: [phone]
--- NOTE | 2023-07-18 08:01 | P.HP_ITS ---
History of Present Illness History of Present Illness Date Patient Seen: 07/18/23 Time Patient Seen: 08:02 Chief complaint: Colonoscopy Narrative: History of colon polyps. Last colonoscopy was about a year ago. A 1 year recall with a 1 hour slot was requested. [facility] Medical History Sacral dysfunction Morbid obesity due to excess calories Coccygeal pain, chronic Herniated nucleus pulposus, lumbar Ulnar tunnel syndrome of right wrist Right carpal tunnel syndrome Rotator cuff syndrome of right shoulder Lumbosacral radiculopathy at L5 Foraminal stenosis of lumbosacral region Facet arthropathy, lumbosacral Hypertension Kidney stones Surgical History Status post cholecystectomy Social History household members: spouse Smoking Status: Former smoker Meds Home Medications and Allergies Home Medications Medication Instructions Recorded Confirmed Type losartan 100 mg tablet (Cozaar) 100 mg PO BEDTIME ##0 08/14/11 07/18/23 History ondansetron 4 mg disintegrating 4 mg PO Q8H PRN Nausea 11/24/18 02/28/23 History tablet loratadine 10 mg capsule 10 mg PO DAILY 08/05/21 07/18/23 History magnesium citrate 100 mg capsule 100 mg PO DAILY 08/05/21 07/18/23 History omeprazole 40 mg capsule,delayed 40 mg PO DAILY 08/05/21 07/18/23 History release rizatriptan 10 mg tablet (Maxalt) 10 mg PO ONCE 08/05/21 07/18/23 History tizanidine 2 mg capsule 2 mg PO Q8H PRN Sleep 08/05/21 02/28/23 History amlodipine 5 mg tablet 5 mg PO DAILY 08/25/22 07/18/23 History hydrochlorothiazide 25 mg tablet 25 mg PO DAILY 08/25/22 07/18/23 History lidocaine 5 % topical patch 1 patch transdermal 08/25/22 02/28/23 History naproxen sodium 220 mg tablet 220 mg PO BID PRN lanier 08/25/22 07/18/23 History (Flanax (naproxen)) trospium 60 mg capsule,extended 60 mg PO DAILY 08/25/22 02/28/23 History release 24 hr propranolol 120 mg capsule,24 120 mg PO BID 12/13/22 07/18/23 History hr,extended release gabapentin 600 mg tablet 300 mg (1/2 x 600 mg) PO TID #90 02/28/23 07/18/23 Rx tabs nystatin 100,000 unit/gram topical 1 applic topical 02/28/23 02/28/23 History powder oxycodone-acetaminophen 5 mg-325 1 tab PO 3XD PRN Headache 02/28/23 07/18/23 History mg tablet Allergies Allergy/AdvReac Type Severity Reaction Status Date / Time No Known Drug Allergies Allergy Verified 07/18/23 07:56 Review of Systems Review of Systems ROS: Yes All systems reviewed with the patient and are negative except as otherwise documented Exam Const General: cooperative HENMT Head: normal to inspection Eyes General: appearance normal, both eyes and all related structures Neck Neck: normal visual inspection Chest Chest: normal inspection of the chest Resp Effort & Inspection: normal respiratory effort Cardio Rate: regular rate GI Inspection: normal to inspection Skin General: no rashes or lesions noted Neuro General: patient alert and patient awake Extrem General: normal to inspection and no pedal edema Psych Appearance: grossly normal Assessment & Plan Assessment & Plan narrative: 72-year-old male with a history of adenomatous colon polyps. Surveillance colonoscopy is pursued today.
--- NOTE | 2023-07-18 08:03 | PM.PREOP ---
Pre-operative Note Interval Note History & Physical reviewed/Exam performed by Physician: Yes Changes to H&P: No ASA Class (for procedural sedation): III
[2023-07-18 08:04] VITALS: BP 171/95; PULSE 61; RESP 16; TEMP 36.2; O2SAT 97
[2023-07-18] MEDS: ONDANSETRON 4 MG/2 ML INJ IV (08:21)
[2023-07-18] MEDS: LACTATED RINGERS 1,000 ML 42 ML IV (08:21)
--- NOTE | 2023-07-18 09:30 | PM.OP.COLON ---
Operative Date/Time/Diagnoses Date of procedure: 07/18/23 Time of procedure: 09:30 Pre-op diagnosis: Colon polyps Post-op diagnosis: same Procedure & Clinicians Study performed: Colonoscopy with cold snare and hot snare polypectomies Same procedure as scheduled: Yes Indications: Colon polyps Surgeon: Onel Rivas Procedure Notes SCOAP/Timeout: Done Procedure in detail: After the risks and benefits were explained, written and verbal informed consent was obtained. The patient was brought into the procedure room and placed into the left lateral decubitus position. Please see anesthesia notes for sedation details.. Digital rectal examination was accomplished. The scope was introduced into the patient and advanced under direct visualization to the cecum as identified by the appendiceal orifice and ileocecal valve. The scope was slowly withdrawn to carefully examine the mucosa for any defects or lesions. Comprehensive imaging was accomplished throughout the rectum including the dentate line. The colon was decompressed, the scope was then removed from the patient who tolerated the procedure well. Adult colonoscope Bowel prep adequate Scope withdrawal time: 18 minutes Sedation minutes: 42 Complications: none Impression: The patient once again had a long redundant colon. Navigation was difficult. This required pressure and use of the stiffening agent. There was a 3-4 mm polyp on the ileocecal valve removed with cold snare. There was an approximately 8 mm polyp in the transverse removed with hot snare. In the descending colon there was a 5 mm polyp removed with hot snare. There were several other diminutive hyperplastic appearing polyps in the left colon that were left alone. Endoscopic diagnosis 1. Multiple colon polyps 2. Challenging navigation Post-procedure Plan for aftercare: 1. Await histopathology 2. Repeat colonoscopy 3 years. Disposition: PACU
[2023-07-18 09:33] VITALS: BP 140/88; PULSE 69; RESP 14; TEMP 36.1; O2SAT 96
[2023-07-18 09:37] VITALS: BP 134/95; PULSE 65; RESP 14; O2SAT 98
[2023-07-18 09:43] VITALS: BP 138/88; PULSE 69; RESP 16; TEMP 36.1; O2SAT 98
[2023-07-18 09:48] VITALS: BP 145/90; PULSE 64; RESP 15; O2SAT 99
--- NOTE | 2023-07-18 11:19 | SUR.PHASEII ---
500cc's LR INFUSED
== END 2023-07-18 10:45 | disposition home or self-care (01) ==
PROVIDERS: PCP Physician Assistant; Referring Provider Internal Medicine Gastroenterology; Visit Provider Internal Medicine Gastroenterology
PROC: 0DJD8ZZ Inspection of Lower Intestinal Tract, Via Natural or Artificial Opening Endoscopic (ICD-10-PCS; CPT 45378; principal; 2023-07-18 08:30)
DX: Z12.11 Encounter for screening for malignant neoplasm of colon (principal); Z86.010 Personal history of colon polyps; D12.6 Benign neoplasm of colon, unspecified; D12.3 Benign neoplasm of transverse colon; D12.4 Benign neoplasm of descending colon
CPT/HCPCS: 45385; J2405; J2704

== ENCOUNTER → 2023-07-22 10:51 | Outpatient (CLI) | payer OTHER, SELFPAY ==
--- NOTE | 2023-07-22 10:53 | DI.RAD.S_ITS ---
PROCEDURE: XR LUMBAR SPINE MIN 4V INDICATIONS: BACK PAIN TECHNIQUE: 5 views of the lumbar spine were acquired, including bilateral oblique views. COMPARISON: [facility], CR, XR LUMBAR SPINE MIN 4V, 08/25/2022, 7:52. FINDINGS: Bones: 5 nonrib-bearing vertebrae are present. There is normal bony alignment. Degenerative endplate changes, loss of disc height and bilateral facet arthrosis throughout lumbar spine is seen. Finding is more notably at L4-5 and L5-S1 levels. No vertebral body compression fractures. No suspicious bony lesions. Soft tissues: Overlying bowel gas pattern is normal. No suspicious soft tissue calcifications. Oblique images: No pars defects. IMPRESSION: Moderate degenerative disc disease throughout lumbar spine. No acute compression fracture or significant spondylolisthesis. No gross pars defects. Dictated by: Ned Houston M.D. on 07/22/2023 at 11:31 Approved by: Ned Hosuton M.D. on 07/22/2023 at 11:32
== END ==
PROVIDERS: PCP Physician Assistant; Referring Provider Physical Medicine & Rehabilitation; Visit Provider Physical Medicine & Rehabilitation
DX: M51.16 Intervertebral disc disorders with radiculopathy, lumbar region (principal); M51.17 Intervertebral disc disorders with radiculopathy, lumbosacral region; M47.26 Other spondylosis with radiculopathy, lumbar region
CPT/HCPCS: 72110

== ENCOUNTER → 2023-09-07 10:31 | Outpatient (CLI) | payer MEDICARE, SELFPAY ==
[2023-09-07 12:39] LABS: Prostate Specific Antigen 0.185 ng/mL (0.10-4.00)
== END ==
PROVIDERS: PCP Physician Assistant; Referring Provider Student in an Organized Health Care Education/Training Program; Visit Provider Student in an Organized Health Care Education/Training Program
DX: Z85.46 Personal history of malignant neoplasm of prostate (principal)
CPT/HCPCS: 36415; 84153

== ENCOUNTER 2023-09-29 15:01 | Outpatient (CLI) | payer MEDICARE, SELFPAY ==
[2023-09-29] VITALS (8 sets, daily range): BP systolic 134–201; BP diastolic 81–106; PULSE 51–62; RESP 12–17; TEMP 35.9; O2SAT 94–98
--- NOTE | 2023-09-29 15:30 | DI.RAD.S_ITS ---
PROCEDURE: PAIN L/S FACET INJ/BLK 1ST CHARU INDICATIONS: BILATERAL L4/5, S1 MBB-LA COMPARISON: None. FINDINGS: Fluoroscopic spot filming was performed to verify placement of spinal needles at the L4 through S1 level(s), as labeled on the films. Appropriate location(s) of the needle tip(s) was confirmed by injection of iodinated contrast. IMPRESSION: L4 through S1 needle and contrast placement. Dictated by: Zakia Soto M.D. on 09/29/2023 at 17:28 Approved by: Zakia Soto M.D. on 09/29/2023 at 17:28
[2023-09-29] MEDS: MIDAZOLAM 2 MG/2 ML VIAL IV (16:00)
[2023-09-29] MEDS: iopamidoL 15 ML VIAL 3 ML INJ (16:03)
[2023-09-29] MEDS: LIDOCAINE 1% 20 ML 5 ML INJ (16:03)
[2023-09-29] MEDS: BUPIVACAINE 0.5% (PF) 10 ML VIAL 5 ML INJ (16:04)
--- NOTE | 2023-09-29 16:18 | PM.PROC.IR.1 ---
Date/Time/Diagnoses Date of procedure: 09/29/23 Time of procedure: 16:18 Pre-procedure diagnosis: 1. FACET ARTHROPATHY Post-procedure diagnosis: same Procedure Notes Procedure: 1. BILATERAL- L4, L5 and S1 DIAGNOSTIC MB BLOCKS with LA Anesthetic Indications: Anastacia is referred by ALESSANDRA Mon for treatment of Bilateral Axial LBP. Physician: Tirso Crews Total Fluoroscopy time (seconds): 11 Total sedation minutes: 14 Complications: none Procedure in detail & Post-procedure care: DESCRIPTION OF PROCEDURE Fluoroscopically guided, contrast-controlled bilateral L4, L5 and S1 medial branch blocks with 0.5cc of 0.5% Marcaine. Following review of allergy and review of potential side effects and complications, including, but not necessarily limited to, infection, allergic reaction, local tissue breakdown, nerve injury, paralysis, stroke and possible , the patient indicated that the patient understood and agreed to proceed. An informed consent document was signed by the patient, witnessed by a nurse, and placed in the patient's chart. After review of previous anaesthesic history and IV conscious sedation the patient was deemed safe to proceed with today's procedure with IV conscious sedation as ASA class II designation. Safety time-out was performed to confirm patient ID, procedure to be performed and site of procedure. IV sedation was accomplished with a combination of 2mg of Versed was administered by the RN after DO order, titrated to patient comfort during the course of the procedure while the patient remained responsive to all verbal commands In the prone position, following sterile prep and drape of the lumbar region, the right L4, L5 and S1 anatomical location of the medial branch of the dorsal ramus was identified fluoroscopically. Subsequently an anesthetic skin wheal using 1% lidocaine solution was initiated at each of the anatomical spots. Subsequently then a 22-gauge 3.5-inch spinal needle was atraumatically introduced and advanced under fluoroscopic guidance at each of the corresponding sites at the right L4, L5 and S1 MB. After negative aspiration, 0.2cc of Isovue 200 was injected, confirming placement without vascular or intrathecal uptake. Subsequently then 0.5cc of 0.5% Marcaine solution was injected at each of the corresponding sites at the right L4, L5 and S1 medial branch locations. The identical procedure was replicated on the left. The patient tolerated the procedure well without signs or symptoms of complications prior to transfer to the recovery area continued monitoring without incident. Post-procedure, the patient was monitored initiating provocative activities to measure the amount of relief from block of the facetogenic pain. The patient reported a VAS of 7 prior to the procedure and a post-procedure VAS of 1. It has been a pleasure to assist in the diagnostic and therapeutic care of your patient. POST OP INSTRUCTIONS The patient was provided with a Pain Log to complete over the next several hours and subsequent days prior to the patient's follow up with the ordering physician. 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 The patient is aware, was provided, once again, with a Pain Log and will follow up with the referring physician for review and clinical correlation
--- NOTE | 2023-09-29 16:29 | PC.NURSE ---
Patient reports that he has been having increased blood pressure. He has a f/u appt with his PCP tomorrow to review. Denies any chest pain, SOB and h/a.
== END 2023-09-29 16:35 | disposition home or self-care (01) ==
LOC: RAD 15:02
PROVIDERS: PCP Physician Assistant; Referring Provider Physical Medicine & Rehabilitation; Visit Provider Physical Medicine & Rehabilitation
DX: M47.816 Spondylosis without myelopathy or radiculopathy, lumbar region (principal); M47.817 Spondylosis without myelopathy or radiculopathy, lumbosacral region
CPT/HCPCS: 64493; 64494; 99152; J2250

== ENCOUNTER 2023-11-15 10:25 | Outpatient (CLI) | payer MEDICARE, SELFPAY ==
[2023-11-15] VITALS (8 sets, daily range): BP systolic 124–170; BP diastolic 73–90; PULSE 58–69; RESP 16–20; TEMP 35.9; O2SAT 96–97
[2023-11-15] MEDS: MIDAZOLAM 2 MG/2 ML VIAL IV (10:59)
--- NOTE | 2023-11-15 11:00 | DI.RAD.S_ITS ---
PROCEDURE: PAIN L/S FACET INJ/BLK 1ST CHARU INDICATIONS: Bilateral L4-L5 and S1 medial branch blocks SA COMPARISON: [facility], XA, PAIN L/S FACET INJ/BLK 1ST CHARU, 09/29/2023, 16:04. FINDINGS: Fluoroscopic spot filming was performed to verify placement of spinal needles at the L4-5, S1 level(s), as labeled on the films. Appropriate location(s) of the needle tip(s) was confirmed by injection of iodinated contrast. IMPRESSION: Contrast a needle placement overlying right labeled L4 through S1. Dictated by: Zakia Soto M.D. on 11/15/2023 at 22:35 Approved by: Zakia Soto M.D. on 11/15/2023 at 22:36
[2023-11-15] MEDS: iopamidoL 15 ML VIAL 3 ML INJ (11:10)
--- NOTE | 2023-11-15 11:21 | P.PCN_ITS ---
Date/Time/Diagnoses Date of procedure: 11/15/23 Time of procedure: 11:21 Pre-procedure diagnosis: 1. FACET ARTHROPATHY Post-procedure diagnosis: same Procedure Notes Procedure: 1. BILATERAL- L4, L5 and S1 DIAGNOSTIC MB BLOCKS with SA Anesthetic Indications: Anastacia is referred by ALESSANDRA Mon for treatment of Bilateral Axial LBP. Physician: Tirso Crews Total Fluoroscopy time (seconds): 14 Total sedation minutes: 15 Complications: none Procedure in detail & Post-procedure care: DESCRIPTION OF PROCEDURE Fluoroscopically guided, contrast-controlled bilateral L4, L5 and S1 medial branch blocks with 0.5cc of 2% Lidocaine. Following review of allergy and review of potential side effects and complications, including, but not necessarily limited to, infection, allergic reaction, local tissue breakdown, nerve injury, paralysis, stroke and possible , the patient indicated that the patient understood and agreed to proceed. An informed consent document was signed by the patient, witnessed by a nurse, and placed in the patient's chart. After review of previous anaesthesic history and IV conscious sedation the patient was deemed safe to proceed with today's procedure with IV conscious sedation as ASA class II designation. Safety time-out was performed to confirm patient ID, procedure to be performed and site of procedure. IV sedation was accomplished with a combination of 2mg of Versed was administered by the RN after DO order, titrated to patient comfort during the course of the procedure while the patient remained responsive to all verbal commands In the prone position, following sterile prep and drape of the lumbar region, the right L4, L5 and S1 anatomical location of the medial branch of the dorsal ramus was identified fluoroscopically. Subsequently an anesthetic skin wheal using 1% lidocaine solution was initiated at each of the anatomical spots. Subsequently then a 22-gauge 3.5-inch spinal needle was atraumatically introduced and advanced under fluoroscopic guidance at each of the corresponding sites at the right L4, L5 and S1 MB. After negative aspiration, 0.2cc of Isovue 200 was injected, confirming placement without vascular or intrathecal uptake. Subsequently then 0.5cc of 2% Lidocaine solution was injected at each of the corresponding sites at the right L4, L5 and S1 medial branch locations. The identical procedure was replicated on the left. The patient tolerated the procedure well without signs or symptoms of complications prior to transfer to the recovery area continued monitoring without incident. Post-procedure, the patient was monitored initiating provocative activities to measure the amount of relief from block of the facetogenic pain. The patient reported a VAS of 7 prior to the procedure and a post-procedure VAS of 1. It has been a pleasure to assist in the diagnostic and therapeutic care of your patient. POST OP INSTRUCTIONS The patient was provided with a Pain Log to complete over the next several hours and subsequent days prior to the patient's follow up with the ordering physician. 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 The patient is aware, was provided, once again, with a Pain Log and will follow up with the referring physician for review and clinical correlation
[2023-11-15] MEDS: LIDOCAINE 2% INJ MDV 20ML 5 ML INJ (11:27)
[2023-11-15] MEDS: LIDOCAINE 1% 20 ML 5 ML INJ (11:27)
--- NOTE | 2023-11-15 11:45 | DI.US.S_ITS ---
PROCEDURE: US THYROID INDICATIONS: INCREASED RISK OF THYROID CANCER/HX OF COLON CANCER TECHNIQUE: Real-time scanning was performed of the thyroid gland, with image documentation. COMPARISON: [facility], US, US THYROID, 06/01/2021, 12:22. FINDINGS: Thyroid: Right lobe measures 5.1 x 1.5 x 1.1 cm. Left lobe measures 4.3 x 1.3 x 1.4 cm. Isthmus is 0.6 cm thick. Echotexture is homogeneous. Nodule number: 1 Location: Left mid Size: 0.6 x 0.5 x 0.6 cm compared to 0.6 x 0.5 x 0.5 cm. Composition: Soft Echogenicity: Hypoechoic Shape: wider than tall. Margins: Irregular Echogenic foci: Punctate and peripheral Total points: 7 ACR TI-RADS category: 5 IMPRESSION: Stable lesions since 2018. Based on recommendations below, no additional follow-up. ACR TI-RADS definitions and recommendations: TI-RADS 1 (benign): 0 points. FNA not needed. TI-RADS 2 (not suspicious): 2 points. FNA not needed. TI-RADS 3 (mildly suspicious): 3 points. * FNA if 2.5 cm or larger, follow up if 1.5 cm or larger (at 1, 3, and 5 years). TI-RADS 4 (moderately suspicious): 4-6 points. * FNA if 1.5 cm or larger, follow up if 1 cm or larger (at 1, 2, 3, and 5 years). TI-RADS 5 (highly suspicious): 7 points or more. * FNA if 1 cm or larger, follow up if 0.5 cm or larger (every year for 5 years). Dictated by: Zakia Soto M.D. on 11/15/2023 at 15:29 Approved by: Zakia Soto M.D. on 11/15/2023 at 15:34
--- NOTE | 2023-11-15 13:07 | PC.NURSE ---
Patient had weakness to BLE, right worse then left. Able to stand, walk in place and but has weakness. Patient had order to have a thyroid ultrasound, was arranged and Ultrasound performed exam in post procedure room. Patient able to stand on own, steady on feet, steps in place, ambulated 5 steps forward and back. Patient reports I feel at baseline. Patient states he lives in [place] and will be going strait home. This RN took patient out to car to meet took steps to get into truck noted to be at baseline prior to procedure.
== END 2023-11-15 12:20 | disposition home or self-care (01) ==
PROVIDERS: PCP Physician Assistant; Referring Provider Physical Medicine & Rehabilitation; Visit Provider Physical Medicine & Rehabilitation
DX: M47.816 Spondylosis without myelopathy or radiculopathy, lumbar region (principal); M47.817 Spondylosis without myelopathy or radiculopathy, lumbosacral region
CPT/HCPCS: 64493; 64494; 76536; 99152; J2250

== ENCOUNTER → 2023-11-24 12:34 | Outpatient (CLI) | payer MEDICARE, SELFPAY ==
--- NOTE | 2023-11-24 12:37 | DI.RAD.S_ITS ---
PROCEDURE: XR HUMERUS LT 2V INDICATIONS: PAIN IN LEFT ARM TECHNIQUE: 2 views of the humerus were acquired. COMPARISON: None. FINDINGS: Bones: Mildly permeative appearance in the left mid humeral diaphysis, there is only seen on the lateral view, concerning for marrow infiltrating lesion. No acute fracture or dislocation. Soft tissues: No suspicious soft tissue calcifications. IMPRESSION: Findings concerning for marrow infiltrating lesion in the left mid humeral diaphysis. Recommend further evaluation with left humeral MRI. Alternatively, this may be artifactual. Dictated by: Maritza De Paz M.D. on 11/24/2023 at 17:49 Approved by: Maritza De Paz M.D. on 11/24/2023 at 17:53
== END ==
LOC: RAD 12:36
PROVIDERS: PCP Physician Assistant; Referring Provider Physician Assistant; Visit Provider Physician Assistant
DX: M79.622 Pain in left upper arm (principal)
CPT/HCPCS: 73060

== ENCOUNTER → 2023-12-09 18:34 | Outpatient (CLI) | payer MEDICARE, SELFPAY ==
--- NOTE | 2023-12-09 18:35 | DI.MRI.S_ITS ---
PROCEDURE: MR HUMERUS LT WO/W CON INDICATIONS: PAIN IN LEFT ARM TECHNIQUE: Noncontrast coronal T1 spin echo and STIR, sagittal T1 spin echo with fat saturation and STIR, axial T1 spin echo and T2 fast spin echo with fat saturation. After the administration of contrast, axial/sagittal/coronal T1 spin echo with fat saturation through the left upper arm. COMPARISON: [facility], CR, XR HUMERUS LT 2V, 11/24/2023, 12:42. FINDINGS: Image quality: Excellent. Bones: [id number] acromioclavicular joint and glenohumeral joint osteoarthritic changes are seen. No marrow edema. No suspicious intraosseous lesion. No cortical erosion or abnormal periosteal reactions. No abnormal intraosseous enhancement. Soft tissues: There is no enhancing soft tissue mass or drainable fluid collection. No area of abnormal soft tissue enhancement is noted. The included left or upper arm muscles show no intramuscular mass or drainable fluid collection. Limited evaluation of rotator cuff tendon shows low to moderate grade articular surface partial-thickness tear involving anterior fibers of distal supraspinatus at its insertion on humeral head. No significant rotator cuff muscle atrophy. IMPRESSION: 1. No discrete intraosseous lesion is seen in mid humeral shaft medullary space or cortex. No area of abnormal contrast enhancement. Recent radiograph finding is likely artifactual. 2. No fracture or dislocation. [id number] left shoulder joint osteoarthritis. 3. Suggestion of low to moderate grade partial-thickness tear involving distal supraspinatus anterior fibers at its insertion on the humeral head. No definite full-thickness rotator cuff tendon rupture. 4. No enhancing soft tissue mass or drainable fluid collection. No area of abnormal intramuscular enhancement. Dictated by: Ned Houston M.D. on 12/10/2023 at 23:28 Approved by: Ned Houston M.D. on 12/10/2023 at 23:39
== END ==
LOC: MRI 18:34
PROVIDERS: PCP Physician Assistant; Referring Provider Physician Assistant
DX: M19.012 Primary osteoarthritis, left shoulder (principal); M79.622 Pain in left upper arm
CPT/HCPCS: 73220; A9579

== ENCOUNTER 2024-01-18 20:46 | Emergency (ER) | payer MEDICARE, SELFPAY ==
[2024-01-18 20:50] VITALS: BP 166/96; PULSE 81; RESP 22; TEMP 36.3; O2SAT 96; BMI 35.2
[2024-01-18 22:40] VITALS: BP 156/93; PULSE 66; RESP 18; O2SAT 97
[2024-01-18 23:11] VITALS: BP 160/91; PULSE 65; O2SAT 98
[2024-01-18 23:30] VITALS: PULSE 67; O2SAT 98
[2024-01-18 23:31] VITALS: BP 175/91; PULSE 67; O2SAT 99
[2024-01-19] VITALS: PULSE 63; O2SAT 99
[2024-01-19 00:01] VITALS: BP 161/86; PULSE 65; O2SAT 98
--- NOTE | 2024-01-19 00:23 | ED.GENADULT ---
HPI - General Adult General Chief complaint: Hypertension Stated complaint: HBP, headache, nausea, confusion Time Seen by Provider: 01/19/24 00:22 Source: patient Mode of arrival: Ambulatory Limitations: no limitations History of Present Illness HPI narrative: 89-year-old male with history of prostate cancer, hypertension, chronic pain who presents with complaint of headache for about 4 days, some nausea, feeling under the weather. Patient states he seemed a little bit foggy. Patient denies fevers has felt a little chilled. They have checked his temperature had normal temperatures at home. Denies any cold cough congestion. No chest pain or shortness of breath. No new abdominal back or flank pain. Does have some urinary frequency. Has not had any new urinary changes. Was constipated but was not eating much for the past 4 days. Took a laxative and then had diarrhea afterwards. Patient denies any new weakness numbness tingling or other neurologic changes. Patient had a PET scan a month ago which showed some metastases at the penis no were else. He is also noted to have high blood pressure on intermittently despite being on 3 medications. Has a known history of migraines. Did take his Maxalt today which was helpful. Patient noted his blood pressure was high at home in the 180 systolic and presented. He states he has had the headaches on and off in the past. Does feel somewhat similar to his migraines. Related Data Home Medications Medication Instructions Recorded Confirmed losartan 100 mg tablet (Cozaar) 100 mg PO BEDTIME ##0 08/14/11 12/28/23 ondansetron 4 mg disintegrating 4 mg PO Q8H PRN Nausea 11/24/18 12/28/23 tablet loratadine 10 mg capsule 10 mg PO DAILY 08/05/21 12/28/23 magnesium citrate 100 mg capsule 100 mg PO DAILY 08/05/21 12/28/23 omeprazole 40 mg capsule,delayed 40 mg PO DAILY 08/05/21 12/28/23 release rizatriptan 10 mg tablet (Maxalt) 10 mg PO ONCE 08/05/21 12/28/23 hydrochlorothiazide 25 mg tablet 25 mg PO DAILY 08/25/22 12/28/23 lidocaine 5 % topical patch 1 patch transdermal 08/25/22 12/28/23 naproxen sodium 220 mg tablet 220 mg PO BID PRN lanier 08/25/22 12/28/23 (Flanax (naproxen)) trospium 60 mg capsule,extended 60 mg PO DAILY 08/25/22 12/28/23 release 24 hr propranolol 120 mg capsule,24 120 mg PO BID 12/13/22 12/28/23 hr,extended release nystatin 100,000 unit/gram topical 1 applic topical 02/28/23 12/28/23 powder oxycodone-acetaminophen 5 mg-325 1 tab PO 3XD PRN Headache 02/28/23 12/28/23 mg tablet gabapentin 300 mg capsule 300 mg PO 3XD 08/17/23 12/28/23 ropinirole 0.25 mg tablet 0.25 mg PO BID 08/17/23 12/28/23 tizanidine 2 mg tablet 2 mg PO BID 08/17/23 12/28/23 amlodipine 5 mg tablet 5 mg PO DAILY 12/28/23 12/28/23 meloxicam 15 mg tablet 15 mg PO DAILY 12/28/23 12/28/23 sertraline 25 mg tablet 25 mg PO DAILY 12/28/23 12/28/23 Allergies Allergy/AdvReac Type Severity Reaction Status Date / Time No Known Drug Allergies Allergy Verified 12/28/23 10:15 Review of Systems Review of Systems ROS Unobtainable: All systems reviewed & are unremarkable except as noted in HPI and below Patient History Medical History Sacral dysfunction Morbid obesity due to excess calories Coccygeal pain, chronic Herniated nucleus pulposus, lumbar Ulnar tunnel syndrome of right wrist Right carpal tunnel syndrome Rotator cuff syndrome of right shoulder Lumbosacral radiculopathy at L5 Foraminal stenosis of lumbosacral region Facet arthropathy, lumbosacral Hypertension Kidney stones Surgical History Status post cholecystectomy Social History household members: spouse Smoking Status: Former smoker Smoking Status: Former smoker alcohol intake frequency: a few times a month Substance Use Type: marijuana Exam Narrative Exam Narrative: GEN: well nourished, well appearing male, alert and oriented x 3, patient appears to be in mild distress. HEENT: Atraumatic, pupils are equal round reactive to light, extraocular movements are intact, nares are clear, there is no conjunctival pallor. Throat is clear without any exudates, erythema, tonsillar enlargement or uvular deviation HEART: Regular rate and rhythm without murmur, clicks, rubs. No carotid bruits, pulses are equal in upper and lower extremities LUNGS:Lungs clear to auscultation, no wheezes, rales, crackles, chest moves symmetrically ABD:bowel sounds normal, soft, non-tender, no guarding, rebound, rigidity, no masses noted, no hepatosplenomegaly :No CVA tenderness MSCL: Non-tender, no muscle atrophy, muscles strength 5/5 upper and lower extremities, full range of motion, normal gait NEURO:CN 2-12 intact, sensation normal Initial Vital Signs Initial Vital Signs: Vital Signs Temperature 97.4 F L 01/18/24 20:50 Pulse Rate 81 01/18/24 20:50 Respiratory Rate 22 01/18/24 20:50 Blood Pressure 166/96 H 01/18/24 20:50 Pulse Oximetry 96 01/18/24 20:50 Oxygen Delivery Method Room Air 01/18/24 20:50 Course Vital Signs Vital signs: Vital Signs - 8 hr 01/18/24 22:40 01/18/24 23:11 01/18/24 23:11 Temperature Pulse Rate 66 65 Respiratory Rate 18 Blood Pressure 156/93 H 160/91 H Pulse Oximetry 97 98 Oxygen Delivery Method Room Air 01/18/24 23:30 01/18/24 23:31 01/18/24 23:31 Temperature Pulse Rate 67 67 Respiratory Rate Blood Pressure 175/91 H Pulse Oximetry 98 99 Oxygen Delivery Method 01/19/24 00:00 01/19/24 00:01 01/19/24 00:01 Temperature Pulse Rate 63 65 Respiratory Rate Blood Pressure 161/86 H Pulse Oximetry 99 98 Oxygen Delivery Method 01/19/24 00:30 01/19/24 00:31 01/19/24 00:31 Temperature Pulse Rate 72 68 Respiratory Rate Blood Pressure 149/81 H Pulse Oximetry 98 99 Oxygen Delivery Method 01/19/24 00:58 Temperature 98.4 F Pulse Rate 68 Respiratory Rate 18 Blood Pressure 147/85 H Pulse Oximetry 95 Oxygen Delivery Method Room Air Medical Decision Making [facility] Narrative Medical decision making narrative: 73-year-old male history of prostate cancer with known metastases of the penis, migraines, hypertension who presents with complaint of headache for the past 4 days some nausea but no active vomiting. No acute neurologic changes. Patient did take his Maxalt today which he found helpful. He feels much better at this time. He also notes his blood pressures improved while he has been here. Patient and I discussed obtaining head CT labs, possibility metastases to the brain, viral syndrome, migraine, hypertensive emergency patient's blood pressure has normalized so this is less likely. After discussion patient prefers to return home. We did discuss that we have not ruled out these potential causes. He has a follow up appointment tomorrow with his primary care and does not wish for additional workup. Discharge Plan Departure Patient Disposition: Home Clinical Impression: Headache Activity Restrictions/Additional Instructions: Follow up after appointment tomorrow. If you are having persistent headaches you should have a head CT for further evaluation to rule out any metastases or other changes to your brain. Return to the emergency department if you have significantly worsening headaches, vision changes, persistent vomiting, new numbness tingling or weakness, difficulty with movement or other new or concerning changes. Prescriptions: No Action losartan [Cozaar] 100 MG tablet 100 mg PO BEDTIME Qty: 0 ondansetron 4 mg Tablet,Disintegrating 4 mg PO Q8H PRN (Reason: Nausea) trospium 60 mg capsule,extended release 24hr 60 mg PO DAILY Patient Comments: TAKE ONE CAPSULE BY MOUTH ONE TIME DAILY hydrochlorothiazide 25 mg tablet 25 mg PO DAILY lidocaine 5 % adhesive patch,medicated 1 patch transdermal Patient Comments: Apply 1 patch to skin in the morning and 1 patch in the evening. Apply to right low back. Remove patch after 12 hours, reapply next morning. naproxen sodium [Flanax (naproxen)] 220 mg tablet 220 mg PO BID PRN (Reason: lanier ) propranolol 120 mg capsule,extended release 24 hr 120 mg PO BID oxycodone-acetaminophen 5-325 mg tablet 1 tab PO 3XD PRN (Reason: Headache) nystatin 100,000 unit/gram powder 1 applic topical gabapentin 300 mg capsule 300 mg PO 3XD tizanidine 2 mg tablet 2 mg PO BID ropinirole 0.25 mg tablet 0.25 mg PO BID sertraline 25 mg tablet 25 mg PO DAILY meloxicam 15 mg tablet 15 mg PO DAILY amlodipine 5 mg tablet 5 mg PO DAILY rizatriptan [Maxalt] 10 mg tablet 10 mg PO ONCE Rx Instructions: as a single dose omeprazole 40 mg capsule,delayed release(DR/EC) 40 mg PO DAILY loratadine 10 mg capsule 10 mg PO DAILY magnesium citrate 100 mg capsule 100 mg PO DAILY Referrals: Linda Mon PA-C [Primary Care Provider] - Stand Alone Forms: Patient Portal/API
[2024-01-19 00:30] VITALS: PULSE 72; O2SAT 98
[2024-01-19 00:31] VITALS: BP 149/81; PULSE 68; O2SAT 99
[2024-01-19 00:58] VITALS: BP 147/85; PULSE 68; RESP 18; TEMP 36.9; O2SAT 95
== END 2024-01-19 00:59 | disposition home or self-care (01) ==
PROVIDERS: Emergency Provider Emergency Medicine; PCP Physician Assistant
DX: R51.9 Headache, unspecified (principal); R35.0 Frequency of micturition; I10 Essential (primary) hypertension; Z79.899 Other long term (current) drug therapy; Z85.46 Personal history of malignant neoplasm of prostate
CPT/HCPCS: 99281

== ENCOUNTER 2024-02-23 10:09 | Outpatient (CLI) | payer MEDICARE, SELFPAY ==
[2024-02-23] VITALS (14 sets, daily range): BP systolic 106–134; BP diastolic 70–86; PULSE 56–67; RESP 14–20; TEMP 36.3; O2SAT 95–99
--- NOTE | 2024-02-23 11:00 | DI.RAD.S_ITS ---
PROCEDURE: PAIN L/S MED/LAT N RFA BILAT INDICATIONS: SPONDYLOSIS COMPARISON: None. FINDINGS: Fluoroscopic spot filming was performed to verify placement of spinal needles at the L4, L5, S1 level(s), as labeled on the films. Appropriate location(s) of the needle tip(s) was confirmed by injection of iodinated contrast. IMPRESSION: Intraoperative guidance provided. Dictated by: Prabhakar Durant M.D. on 02/23/2024 at 19:13 Approved by: Prabhakar Durant M.D. on 02/23/2024 at 19:14
[2024-02-23] MEDS: fentaNYL 100 MCG/2 ML INJ 50 MCG IV ×2 (11:17→11:44)
[2024-02-23] MEDS: MIDAZOLAM 2 MG/2 ML VIAL 1 MG IV (11:17)
[2024-02-23] MEDS: LIDOCAINE 1% 20 ML 5 ML INJ (11:22)
[2024-02-23] MEDS: BUPIVACAINE 0.5% (PF) 10 ML VIAL 5 ML INJ (11:23)
[2024-02-23] MEDS: MIDAZOLAM 5 MG/ML VIAL 1 MG IV (11:44)
--- NOTE | 2024-02-23 12:07 | P.PCN_ITS ---
Date/Time/Diagnoses Date of procedure: 02/23/24 Time of procedure: 12:07 Pre-procedure diagnosis: 1. RECALCITRANT FACET ARTHROPATHY Post-procedure diagnosis: same Procedure Notes Procedure: 1. BILATERAL L4 AND L5 MEDIAL BRANCH RADIOFREQUENCY NEUROTOMY AND S1 DORSAL RAMUS BRANCH RADIOFREQUENCY NEUROTOMY Indications: Anastacia is referred by ALESSANDRA Mon for treatment of facet arthropathy. Physician: Tirso Crews Total Fluoroscopy time (seconds): 22 Total sedation minutes: 42 Complications: none Procedure in detail & Post-procedure care: DESCRIPTION OF PROCEDURE Bilateral L4 and L5 medial branch radiofrequency neurotomy and bilateral S1 dorsal ramus radiofrequency neurotomy under fluoroscopy with conscious sedation. The patient is well known to this clinic having undergone previous facet injections with good but temporary relief. The patient has experienced appropriate, concordant relief with previous facet and median branch blocks but the patient's pain has been recalcitrant to further conservative measures. Therefore, based upon the patient's relief and persistent symptoms, the patient is considered an appropriate candidate for facet rhizotomy. All of the patient's questions regarding the risks versus benefits of the procedure, including, but not limited to, bleeding, infection, temporary as well as lasting nerve injury, paralysis, stroke, and , as well treatment alternatives were answered to satisfaction. After obtaining informed consent, denial of pertinent drug allergies, as well as being made aware of the potential risks of bleeding, infection, spinal cord trauma, paralysis, temporary and permanent nerve damage, seizure, stroke, and possible , the patient was brought to the fluoroscopy suite and positioned prone on the fluoroscopy table. The lumbar region was prepped in usual sterile fashion and covered with a fenestrated drape in the usual sterile fashion. Appropriate monitors applied including pulse oximeter, pulse, and blood pressure for regular monitoring throughout the procedure. After review of previous anaesthesic history and IV conscious sedation the patient was deemed safe to proceed with today's procedure with IV conscious sedation as ASA class II designation. Safety time-out was performed to confirm patient ID, procedure to be performed and site of procedure. IV sedation was accomplished with a combination of 2mg of Versed and 100mcg of Fentanyl administered by the RN after DO order, titrated to patient comfort during the course of the procedure while the patient remained responsive to all verbal commands. After local infiltration using 1% lidocaine, under fluoroscopic guidance, a 10- cm RF insulated needle with a 10-mm active tip was positioned parallel to the junction of the right sacral ala and the superior articulating process where the S1 dorsal ramus resides. Needle placement was confirmed with motor stimulation of .5v on the right which produced local stimulation without radicular component. The stimulation was then increased to 2v with, once again, only local multifidus stimulation without radicular component. The needle was then removed and the identical procedure was performed along the length of the right L5 medial branch with motor stimulation at .7v on the right. The identical procedure was once again performed along the length of the right L4 medial branch with motor stimulation of .5v on the right. The medial branches were then anesthetised with 0.5% Marcaine. This was then followed by two discreet lesions performed at 80 degrees Celsius for 90 seconds each. The identical procedure was repeated on the left. The patient tolerated the procedure well without signs or symptoms of complications prior to transfer to the recovery area continued monitoring without incident. The patient was then transferred to the recovery area where they were observed for an appropriate period of time after the injection. The patient reported a VAS score of 9 prior to the procedure and a post-procedure VAS of 0. POST OP INSTRUCTIONS The patient was provided a Pain Log to continue to record the patient's response to the target-specific procedure prior to the patient's follow-up visit with the referring physician. Additionally, specific post-injection care instructions and a contact number to our office were provided if concerns arise regarding possible complications associated with the procedure are suspected.
== END 2024-02-23 12:19 | disposition home or self-care (01) ==
LOC: RAD 10:10
PROVIDERS: PCP Physician Assistant; Referring Provider Physical Medicine & Rehabilitation; Visit Provider Physical Medicine & Rehabilitation
DX: M47.817 Spondylosis without myelopathy or radiculopathy, lumbosacral region (principal); M47.816 Spondylosis without myelopathy or radiculopathy, lumbar region
CPT/HCPCS: 64635; 64636; 99152; 99153; J2250; J3010

== ENCOUNTER 2024-11-13 09:31 | Day surgery (SDC) | payer MEDICARE, SELFPAY ==
--- NOTE | 2024-11-13 | PATH_ITS ---
[facility] Accession Number: [id number] No. of containers..03 Tissue . 01 Material submitted: . PART A: colon - COLON, SIGMOID POLYP PART B: ileo-cecal valve - ILEOCECAL VALVE POLYP PART C: colon - COLON, ASCENDING POLYP . 01 Diagnosis: A. SIGMOID COLON: Hyperplastic polyp. . B. ILEOCECAL VALVE: Tubular adenoma. . C. ASCENDING COLON: Tubular adenoma. MRV 11/20/2024 1328 Local . 01 Electronically signed: . Lori Mejia DO, Pathologist NPI- [id number] . 01 Gross description: . Part A: COLON, SIGMOID POLYP: Received in formalin is 1 fragment(s) of villareal, soft tissue measuring 0.3 x 0.3 x 0.2 cm submitted entirely in 1 cassette(s) Part B: ILEOCECAL VALVE POLYP: Received in formalin are 2 fragment(s) of villareal, soft tissue measuring 0.3 x 0.3 x 0.2 cm to 0.4 x 0.4 x 0.2 cm submitted entirely in 1 cassette(s) Part C: COLON, ASCENDING POLYP: Received in formalin is 1 fragment(s) of villareal, soft tissue measuring 0.9 x 0.6 x 0.3 cm submitted entirely in 1 cassette(s) /JUAN 11/16/2024 2218 Local . 01 Pathologist provided ICD-10: Z12.11 . 01 CPT . 509717, 637578, 820776 Specimen Comment: A courtesy copy of this report has been sent to [facility] Pathology Performed at: [address] [address], [place], [place] [id number] MD Paul Packer MD Phone: [phone]
[2024-11-13 09:58] VITALS: BP 125/84; PULSE 76; RESP 18; TEMP 36.1; O2SAT 98
[2024-11-13] MEDS: LACTATED RINGERS 1,000 ML 42 ML IV (10:13)
--- NOTE | 2024-11-13 10:56 | PM.HP.IH.1 ---
History of Present Illness History of Present Illness Date Patient Seen: 11/13/24 Time Patient Seen: 10:56 Chief complaint: Colonoscopy Narrative: Presents today for f/u screening colonoscopy. H/O tubular adenomas 3 years ago. [facility] Medical History Coccygeal pain, chronic Facet arthropathy, lumbosacral Foraminal stenosis of lumbosacral region Herniated nucleus pulposus, lumbar Hypertension Kidney stones Lumbosacral radiculopathy at L5 Morbid obesity due to excess calories Right carpal tunnel syndrome Rotator cuff syndrome of right shoulder Sacral dysfunction Ulnar tunnel syndrome of right wrist Surgical History Status post cholecystectomy Social History household members: spouse Smoking Status: Former smoker Meds Home Medications and Allergies Home Medications ?Medication ?Instructions ?Recorded ?Confirmed ?Type losartan 100 mg tablet (Cozaar) 100 mg PO BEDTIME ##0 08/14/11 11/13/24 History ondansetron 4 mg disintegrating 4 mg PO Q8H PRN Nausea 11/24/18 11/13/24 History tablet loratadine 10 mg capsule 10 mg PO DAILY 08/05/21 04/18/24 History magnesium citrate 100 mg capsule 100 mg PO DAILY 08/05/21 11/13/24 History omeprazole 40 mg capsule,delayed 40 mg PO DAILY 08/05/21 11/13/24 History release rizatriptan 10 mg tablet (Maxalt) 10 mg PO ONCE 08/05/21 11/13/24 History hydrochlorothiazide 25 mg tablet 25 mg PO DAILY 08/25/22 11/13/24 History lidocaine 5 % topical patch 1 patch transdermal 08/25/22 04/18/24 History trospium 60 mg capsule,extended 60 mg PO DAILY 08/25/22 11/13/24 History release 24 hr propranolol 120 mg capsule,24 120 mg PO BID 12/13/22 11/13/24 History hr,extended release nystatin 100,000 unit/gram topical 1 applic topical 02/28/23 04/18/24 History powder oxycodone-acetaminophen 5 mg-325 1 tab PO 3XD PRN Headache 02/28/23 11/13/24 History mg tablet gabapentin 300 mg capsule 300 mg PO 3XD 08/17/23 11/13/24 History ropinirole 0.25 mg tablet 0.25 mg PO BID 08/17/23 11/13/24 History tizanidine 2 mg tablet 2 mg PO BID 08/17/23 11/13/24 History meloxicam 15 mg tablet 15 mg PO DAILY 12/28/23 11/13/24 History sertraline 25 mg tablet 25 mg PO DAILY 12/28/23 11/13/24 History amlodipine 10 mg tablet 10 mg PO DAILY 04/18/24 11/13/24 History sodium,potassium,mag sulfates 17.5 See Rx Instructions PO .COMPLEX 10/24/24 Rx gram-3.13 gram-1.6 gram oral soln #354 mL (Suprep Bowel Prep Kit) Allergies Allergy/AdvReac Type Severity Reaction Status Date / Time No Known Drug Allergies Allergy Verified 11/13/24 09:53 Exam Vital Signs (past 8 hours): - 11/13/24 09:58 Temperature 96.9 F L Pulse Rate 76 Respiratory Rate 18 Blood Pressure 125/84 Pulse Oximetry 98 Oxygen Delivery Method Room Air Oxygen Delivery Method Room Air Const General: comfortable Orientation: alert and oriented x3 Resp Effort & Inspection: normal respiratory effort Auscultation: clear to auscultation bilaterally Cardio Rate: regular rate Rhythm: regular rhythm GI Palpation: soft (nontender) Extrem Other: Without pitting edema Assessment & Plan Assessment and plan (1) Encounter for screening colonoscopy: Status: Acute Plan Plan screening colonoscopy today, possible polypectomy. The risks, benefits and options regarding the procedure were explained to the patient in detail. Risk discussion included but not limited to: bleeding, perforation, missed lesion. The patient was encouraged to ask questions and they were answered to their satisfaction. The patient understands and is agreeable to proceed. Time-Based Coding :: [TOTAL MINUTES] spent with patient and on the chart (including review of chart, obtaining history, exam, reviewing outside data, placing orders, documenting exam and treatment plan, and counseling patient) on [DATE]. [employer] Document charge(s): Yes Charge Codes Inpatient/observation care including admit and discharge same day: [id number]
[2024-11-13 11:53] VITALS: BP 101/60; PULSE 72; RESP 20; TEMP 36.4; O2SAT 97
[2024-11-13 11:58] VITALS: BP 106/65; PULSE 63; RESP 16; O2SAT 99
--- NOTE | 2024-11-13 12:02 | PM.OP.COLON ---
Operative Date/Time/Diagnoses Date of procedure: 11/13/24 Time of procedure: 12:02 Pre-op diagnosis: H/O colon polyps, tubular adenomas, due for 3 year screening exam Post-op diagnosis: same Procedure & Clinicians Study performed: Colonoscopy with polypectomy x 3 Same procedure(s) as scheduled: Yes Indications: 74yo M, h/o tubular adenomas, due for 3year screening exam. Surgeon: Skinny Doyle Anesthesia Type: MAC +/- Procedure Notes SCOAP/Timeout: Performed Procedure in detail: Patient placed in left lateral recumbent position. Time out was performed. Procedural sedation was administered by anesthesia. Examination began with a thorough inspection of the perianal area. There was no evidence of fissures, fistulae, external hemorrhoids or cutaneous malignancy. The colonoscope was then placed into the rectum and the lumen was insufflated with carbon dioxide. The scope was carefully advanced forward. Ultimately the cecum was intubated and confirmed by identification of the ileocecal valve, the appendiceal orifice and the confluence of the taenia. The scope was then slowly withdrawn examining the colon thoroughly in all directions. In the rectum, retroflexion of the scope was performed for inspection of the distal rectum and anal canal. ?The colonoscopy was notable for the following: ?1. Quality of the preparation-good, [place] 2-3 ?2. Scattered polyps throughout, most 1mm, sessile, concentrated in rectosigmoid. 3. Ileocecal valve had polypoid appearance, cold biopsy performed 4. Polypectomy x 2, ascending and sigmoid colons, 3mm, sessile, removed with cold snare and retrieved 5. Plan to continue q3yr exam given extent of polyposis 6 Colon very spastic throughout exam Scope withdrawal time: 14 minutes Findings: polyp(s) Specimen(s): other (Polyp biopsies) Complications: none Impression: Extensive number of small sessile polyps, concentrated in rectosigmoid colon Post-procedure Recommendations: Colonoscopy in 3 years Plan for aftercare: Resume diet Plan to continue q3year exam given extent of polyps Follow up: as needed Disposition: PACU
[2024-11-13 12:03] VITALS: BP 104/7; PULSE 67; RESP 16; O2SAT 98
[2024-11-13 12:11] VITALS: BP 105/78; PULSE 65; RESP 16; TEMP 36.1; O2SAT 97
== END 2024-11-13 12:36 | disposition home or self-care (01) ==
PROVIDERS: PCP Physician Assistant; Referring Provider Surgery; Visit Provider Surgery
PROC: 0DJD8ZZ Inspection of Lower Intestinal Tract, Via Natural or Artificial Opening Endoscopic (ICD-10-PCS; CPT 45378; principal; 2024-11-13 10:45)
DX: Z12.11 Encounter for screening for malignant neoplasm of colon (principal); Z86.0101 Personal history of adenomatous and serrated colon polyps; I10 Essential (primary) hypertension; E66.01 Morbid (severe) obesity due to excess calories; Z87.891 Personal history of nicotine dependence; K63.5 Polyp of colon; D12.0 Benign neoplasm of cecum; D12.2 Benign neoplasm of ascending colon
CPT/HCPCS: 45385; 45380; J2704

== ENCOUNTER → 2024-12-07 13:17 | Outpatient (CLI) | payer MEDICARE, SELFPAY ==
--- NOTE | 2024-12-07 13:20 | DI.RAD.S_ITS ---
PROCEDURE: XR HIP W PEL IF DONE RT 2V INDICATIONS: RIGHT HIP PAIN TECHNIQUE: AP pelvis with lateral view(s) of the right hip(s). COMPARISON: None. FINDINGS: Bones: No fractures or dislocations. Mild to moderate osteoarthritic degenerative change of the right hip includes joint space narrowing, marginal osteophytosis and acetabular subchondral sclerosis. Pelvic ring appears intact. No suspicious bony lesions. Soft tissues: The visualized bowel gas pattern is normal. No suspicious soft tissue calcifications. IMPRESSION: Degenerative change of the right hip without evidence of acute bony abnormality. Dictated by: Agusto Wynne M.D. on 12/08/2024 at 23:34 Approved by: Agusto Wynne M.D. on 12/08/2024 at 23:34
== END ==
PROVIDERS: PCP Physician Assistant; Referring Provider Physician Assistant; Visit Provider Physician Assistant
DX: M25.551 Pain in right hip (principal); M16.11 Unilateral primary osteoarthritis, right hip
CPT/HCPCS: 73502

== ENCOUNTER 2025-01-30 10:15 | Emergency (ER) | payer MEDICARE, SELFPAY ==
[2025-01-30] VITALS (9 sets, daily range): BP systolic 142–163; BP diastolic 65–91; PULSE 80–111; RESP 16; TEMP 36.6; O2SAT 96–99; BMI 35.2
--- NOTE | 2025-01-30 10:37 | DI.RAD.S_ITS ---
PROCEDURE: XR ACUTE ABDOMEN SERIES INDICATIONS: abd pain constipation TECHNIQUE: One view chest and two views of the abdomen were acquired. COMPARISON: [facility], CR, XR HIP W PEL RT 2V, 12/07/2024, 13:16. (Additional prior imaging is not available for review from the archive at the time of this dictation.) FINDINGS: Surgical changes and devices: Cholecystectomy clips are seen. Chest: Lungs are clear. Heart size is normal. Atherosclerotic calcification of the aortic arch is noted. No pleural effusions. No pneumoperitoneum. Abdomen: Bowel gas pattern is normal. The volume of stool within the colon is not excessive. No suspicious calcifications. Visualized solid organ contours appear normal. Bones: No suspicious bony lesions. Age-appropriate bony degenerative changes are seen. IMPRESSION: No significant plain film abnormality is seen for age. Postoperative and degenerative changes are seen. Dictated by: Steven Moreno M.D. on 01/30/2025 at 10:13 Approved by: Steven Moreno M.D. on 01/30/2025 at 10:14
[2025-01-30] MEDS: ONDANSETRON 4 MG ODT SL (10:39)
--- NOTE | 2025-01-30 11:41 | DI.CT.S_ITS ---
PROCEDURE: CT ABDOMEN PELVIS W CON INDICATIONS: Generalized abdominal pain/constipation TECHNIQUE: After the administration of intravenous contrast, axial sections acquired from the lung bases to the pubic symphysis. Coronal and sagittal reformats were performed. For radiation dose reduction, the following was used: automated exposure control, adjustment of mA and/or kV according to patient size. COMPARISON: [facility], CT, CT KIDNEY URETER BLADDER (KUB), 11/25/2021, 10:09. [facility], CR, XR ACUTE ABDOMEN SERIES, 01/30/2025, 10:46. [facility], CT, CT ABDOMEN PELVIS W CON, 11/03/2018, 10:49. FINDINGS: Image quality: Diagnostic. Lower Chest: No significant findings. ABDOMEN: Liver: No solid mass. Diffuse fatty liver infiltration is noted. Gallbladder: Cholecystectomy. Biliary ducts: No biliary dilation. Pancreas: No ductal dilation. Spleen: Size is within normal limits. Adrenal Glands: No adrenal nodules. Kidneys and Ureters: No hydronephrosis. No solid mass. No complex renal cystic lesion which requires follow up. Stomach and Bowel: Normal colonic caliber, without significant wall thickening. The volume of stool within the colon is not excessive. No dilated loops of small bowel are seen. Normal appendix. Peritoneum: No abnormal intraperitoneal fluid. No free air. Ventral Wall: A mild periumbilical hernia is seen, containing fat. Abdominal Nodes: No retroperitoneal or mesenteric adenopathy by size criteria. Vessels: Aorta and inferior vena cava are normal in size. Atherosclerotic calcification is noted. PELVIS: Pelvic Organs: Prostatectomy change is seen. Vasectomy clips can be seen. Bladder: Asymmetric bladder wall thickening can be seen on the right, without a focal bladder mass Pelvic Nodes: No enlarged lymph nodes. Miscellaneous: There is a moderate fat containing left inguinal hernia. Bones: No aggressive osseous abnormality. Degenerative changes are seen throughout, which are worst involving the lower lumbar spine. Chronic bony fragmentation can be seen involving the ischial tuberosities, which is attributed to remote avulsion injuries. IMPRESSION: No imaging explanation is found for this patient's presenting symptoms. The volume of stool within the colon is not excessive. Asymmetric bladder wall thickening can be seen on the right, yet without a focal bladder mass. Additional findings: Fatty liver infiltration Cholecystectomy Mild fat containing periumbilical hernia Lower lumbar spine degenerative change Prostatectomy Moderate fat containing left inguinal hernia Vasectomy Dictated by: Jorge Luis LondonoD. on 01/30/2025 at 11:41 Approved by: Steven Moreno M.D. on 01/30/2025 at 11:46
--- NOTE | 2025-01-30 11:41 | ED.ABDPAIN ---
HPI - Abdominal Pain General Chief Complaint: Abdominal Pain Stated Complaint: Constipated , throwing up 7 days Time Seen by Provider: 01/30/25 11:19 Source: patient Mode of arrival: Ambulatory History of Present Illness HPI narrative: Patient here with . Has had intermittent nausea and vomiting and decreased stool output this past week. Did have a small amount of stool yesterday and some today. Patient usually has bowel movements every day. Recently had colonoscopy for polyps this past November. History of cholecystectomy. Denies any fever chills cough cold or congestion. No chest pain no back pain. No urinary complaints. Nausea is better after ODT Zofran given here at triage. Related Data Home Medications ?Medication ?Instructions ?Recorded ?Confirmed losartan 100 mg tablet (Cozaar) 100 mg PO BEDTIME ##0 08/14/11 11/13/24 ondansetron 4 mg disintegrating 4 mg PO Q8H PRN Nausea 11/24/18 11/13/24 tablet loratadine 10 mg capsule 10 mg PO DAILY 08/05/21 04/18/24 magnesium citrate 100 mg capsule 100 mg PO DAILY 08/05/21 11/13/24 omeprazole 40 mg capsule,delayed 40 mg PO DAILY 08/05/21 11/13/24 release rizatriptan 10 mg tablet (Maxalt) 10 mg PO ONCE 08/05/21 11/13/24 hydrochlorothiazide 25 mg tablet 25 mg PO DAILY 08/25/22 11/13/24 lidocaine 5 % topical patch 1 patch transdermal 08/25/22 04/18/24 trospium 60 mg capsule,extended 60 mg PO DAILY 08/25/22 11/13/24 release 24 hr propranolol 120 mg capsule,24 120 mg PO BID 12/13/22 11/13/24 hr,extended release nystatin 100,000 unit/gram topical 1 applic topical 02/28/23 04/18/24 powder oxycodone-acetaminophen 5 mg-325 1 tab PO 3XD PRN Headache 02/28/23 11/13/24 mg tablet gabapentin 300 mg capsule 300 mg PO 3XD 08/17/23 11/13/24 ropinirole 0.25 mg tablet 0.25 mg PO BID 08/17/23 11/13/24 tizanidine 2 mg tablet 2 mg PO BID 08/17/23 11/13/24 meloxicam 15 mg tablet 15 mg PO DAILY 12/28/23 11/13/24 sertraline 25 mg tablet 25 mg PO DAILY 12/28/23 11/13/24 amlodipine 10 mg tablet 10 mg PO DAILY 04/18/24 11/13/24 Previous Rx's ?Medication ?Instructions ?Recorded ondansetron 4 mg disintegrating 4 mg PO Q6H PRN nausea and 01/30/25 tablet vomiting #20 tabs Allergies Allergy/AdvReac Type Severity Reaction Status Date / Time No Known Drug Allergies Allergy Verified 11/13/24 09:53 Review of Systems Review of Systems Narrative: GENERAL: Negative chills, fatigue, malaise, fever, sweats. HEENT: Negative sinus pain, ear pain, sore throat RESPIRATORY: Negative dyspnea, cough CARDIOVASCULAR: Negative chest pain, palpitations GASTROINTESTINAL: Negative vomiting, positive constipation, nausea, abdominal pain : Negative dysuria, frequency, hematuria MUSCULOSKELETAL: Negative muscle or bony pain SKIN: Negative rash, skin lesions NEUROLOGIC: Negative weakness, numbness ROS Unobtainable: All systems reviewed & are unremarkable except as noted in HPI and below Patient History Medical History Coccygeal pain, chronic Facet arthropathy, lumbosacral Foraminal stenosis of lumbosacral region Herniated nucleus pulposus, lumbar Hypertension Kidney stones Lumbosacral radiculopathy at L5 Morbid obesity due to excess calories Right carpal tunnel syndrome Rotator cuff syndrome of right shoulder Sacral dysfunction Ulnar tunnel syndrome of right wrist Surgical History Status post cholecystectomy Social History household members: spouse Smoking Status: Former smoker Smoking Status: Former smoker alcohol intake frequency: a few times a month Exam Narrative Exam Narrative: GENERAL: in no distress, not toxic not dyspneic HEAD: Normocephalic. EYES: Pupils equal round ENT: Mucous membranes moist. NECK: Trachea midline. CARDIOVASCULAR: Regular rate and rhythm RESPIRATORY: Clear to auscultation. Breath sounds equal bilaterally. No wheezes, rales, or rhonchi. GASTROINTESTINAL: Abdomen soft, non-tender, abdomen is soft nontender no peritoneal signs no guarding or rebound. No pain out of portion exam. No CVA tenderness EXTREMITIES: No gross deformities. BACK: No flank tenderness. NEURO: AOx4. Clear speech SKIN: Warm and dry PSYCH: Not anxious, is cooperative Initial Vital Signs Initial Vital Signs: Vital Signs Temperature 97.8 F 01/30/25 10:33 Pulse Rate 111 H 01/30/25 10:33 Respiratory Rate 16 01/30/25 10:33 Blood Pressure 142/91 H 01/30/25 10:33 Pulse Oximetry 99 01/30/25 10:33 Oxygen Delivery Method Room Air 01/30/25 10:33 Course Orders Ordered: Discontinued Medications Sodium Chloride (Normal Saline 0.9%) 1,000 mls @ 1,000 mls/hr IV BOLUS ONE Stop: 01/30/25 12:40 Last Infusion: 01/30/25 12:59 Dose: Infused Documented By: Admin: 01/30/25 12:01 Dose: 1,000 mls/hr Documented By: SURINDER Sodium Chloride (Normal Saline 0.9%) 1,000 mls @ 1,000 mls/hr IV BOLUS ONE Stop: 01/30/25 14:07 Last Infusion: 01/30/25 13:56 Dose: Infused Documented By: Admin: 01/30/25 13:13 Dose: 1,000 mls/hr Documented By: SURINDER Ondansetron HCl (Ondansetron 4 Mg Odt) 4 mg SL NOW ONE Stop: 01/30/25 10:38 Last Admin: 01/30/25 10:39 Dose: 4 mg Documented By: JORDON Pantoprazole Sodium (Pantoprazole 40 Mg Vial) 40 mg IV NOW ONE Stop: 01/30/25 11:57 Last Admin: 01/30/25 12:01 Dose: 40 mg Documented By: SURINDER Vital Signs Vital signs: Vital Signs - 8 hr 01/30/25 10:33 01/30/25 11:32 01/30/25 11:32 Temperature 97.8 F Pulse Rate 111 H 96 H Respiratory Rate 16 Blood Pressure 142/91 H 150/89 H Pulse Oximetry 99 99 Oxygen Delivery Method Room Air 01/30/25 12:00 01/30/25 12:00 01/30/25 12:12 Temperature Pulse Rate 93 H 91 H Respiratory Rate Blood Pressure 143/84 H Pulse Oximetry 98 97 Oxygen Delivery Method 01/30/25 12:12 01/30/25 12:30 01/30/25 12:30 Temperature Pulse Rate 90 Respiratory Rate Blood Pressure 147/65 H 149/74 H Pulse Oximetry 98 Oxygen Delivery Method 01/30/25 13:15 01/30/25 13:16 01/30/25 13:16 Temperature Pulse Rate 97 H 80 Respiratory Rate Blood Pressure 163/80 H Pulse Oximetry 97 98 Oxygen Delivery Method 01/30/25 13:30 Temperature Pulse Rate 84 Respiratory Rate Blood Pressure Pulse Oximetry 98 Oxygen Delivery Method MDM - Abdominal Pain Lab Data 01/30/25 11:45 01/30/25 11:45 Labs: Lab Results 01/30/25 01/30/25 Range/Units 11:45 14:00 WBC 7.3 (4.5-11.0) X10^3/uL RBC 4.68 (4.5-5.9) X10^6/uL Hgb 14.3 (13.5-17.5) g/dL Hct 41.2 (41-53) % MCV 88.1 (80-100) fL MCH 30.6 (26-34) PG MCHC 34.7 (30-36) % RDW 12.5 (11.6-14.8) % Plt Count 242 (150-400) X10^3/uL Neut % (Auto) 80.4 H (50-75) % Lymph % (Auto) 9.7 L (25-40) % [place] % (Auto) 8.2 (3-14) % Eos % (Auto) 1.1 L (2-4) % Baso % (Auto) 0.6 (0-2) % Neut # (Auto) 5900 (4442-3297) /uL Lymph # (Auto) 700 L (2535-2095) /uL [place] # (Auto) 600 (0-900) /uL Eos # (Auto) 100 (0-450) /uL Baso # (Auto) 0 (0-100) /uL Sodium 136 L (137-145) mmol/L Potassium 4.0 (3.4-5.1) mmol/L Chloride 101 (98-107) mmol/L Carbon Dioxide 23 (22-32) mmol/L BUN 17 (9-20) mg/dL Creatinine 1.00 (0.66-1.25) mg/dL Estimated GFR > 60 (>60) mL/min BUN/Creatinine Ratio 17.0 (6-22) Glucose 167 H (70-99) mg/dL Calcium 9.6 (8.4-10.2) mg/dL Total Bilirubin 1.0 (0.2-1.3) mg/dL AST 35 (17-59) IU/L ALT 30 (<50) IU/L Alkaline Phosphatase 102 (38-126) U/L Total Protein 7.6 (6.3-8.2) g/dL Albumin 4.6 (3.5-5.0) g/dL Globulin 3.0 (1.7-4.1) g/dL Albumin/Globulin Ratio 1.5 (1.0-2.8) Lipase 24 (23-300) U/L Urine RBC 5-10/hpf H (0-5/HPF) Urine WBC 0-1/hpf (0-5/HPF) Ur Squamous Epith Cells 0-1 /hpf (0-5/HPF) Urine Bacteria Occasional (0-1) (None) Urine Mucus 1+ H (Negative) Ur Culture Indicated? Cult not indicated Vol Urine Centrifuged 10ml (spun) Point of care testing: Urine Dip Bedside Urine Glucose Negative Bedside Urine Bilirubin - Negative Bedside Urine Ketone - Negative Urine Specific [place] 1.005 Bedside Urine Occult Blood ++ Bedside Urine pH 6.0 Bedside Urine Protein +/- 15 Bedside Urine Urobilinogen - Negative Bedside Urine Nitrite - Negative Bedside Urine Leukocytes - Negative Esterase Imaging Data X-ray chest abdomen: Radiologist's Impression: [address] [id number] XRay Report Signed Patient: Anastacia Kamara MR#: [id number] : 1950 Acct:[id number] Age/Sex: 74 / M Date of Service: 01/30/25 Loc: ED Accession Number: [id number] Procedure: XR acute abdomen series Ordering Provider: Faustino Moreno MD PROCEDURE: XR ACUTE ABDOMEN SERIES INDICATIONS: abd pain constipation TECHNIQUE: One view chest and two views of the abdomen were acquired. COMPARISON: [facility], CR, XR HIP W PEL RT 2V, 12/07/2024, 13:16. (Additional prior imaging is not available for review from the archive at the time of this dictation.) FINDINGS: Surgical changes and devices: Cholecystectomy clips are seen. Chest: Lungs are clear. Heart size is normal. Atherosclerotic calcification of the aortic arch is noted. No pleural effusions. No pneumoperitoneum. Abdomen: Bowel gas pattern is normal. The volume of stool within the colon is not excessive. No suspicious calcifications. Visualized solid organ contours appear normal. Bones: No suspicious bony lesions. Age-appropriate bony degenerative changes are seen. IMPRESSION: No significant plain film abnormality is seen for age. Postoperative and degenerative changes are seen. Dictated by: Steven Moreno M.D. on 01/30/2025 at 10:13 Approved by: Steven Moreno M.D. on 01/30/2025 at 10:14 CT scan - abdomen/pelvis: Radiologist's Impression: [address] [address] XRay Report Signed Patient: Peg Saldana MR#: [id number] : 09/21/1965 Acct:[id number] Age/Sex: 59 / F Date of Service: 01/30/25 Loc: ED Accession Number: [id number] Procedure: XR femur RT min 2V Ordering Provider: Faustino Moreno MD PROCEDURE: XR FEMUR RT MIN 2V INDICATIONS: Fall/pain right side TECHNIQUE: 2 views of the femur were acquired. COMPARISON: [facility], CR, XR KNEE RT 3V, 01/30/2025, 11:26. [facility], CT, CT CHEST ABD PEL WO CON, 01/30/2025, 11:00. [facility], CT, CT HEAD/BRAIN WO CON, 01/30/2025, 11:00. [facility], CT, CT CERVICAL SPINE WO CON, 01/30/2025, 11:00. [facility], CR, XR SHOULDER RT 2+ VIEWS, 01/30/2025, 10:16. [facility], CR, XR ELBOW RT MIN 3V, 01/30/2025, 10:16. FINDINGS: Bones: No fractures or dislocations. No suspicious bony lesions. Underlying degenerative changes are seen Soft tissues: No suspicious soft tissue calcifications or masses. Incidental note is made of a metallic body ornamentation artifact. IMPRESSION: No displaced fracture is seen on this plain film study. Dictated by: Steven Moreno M.D. on 01/30/2025 at 11:20 Approved by: Steven Moreno M.D. on 01/30/2025 at 11:20 [facility] Narrative Medical decision making narrative: Patient here with . Has had intermittent nausea and vomiting and decreased stool output this past week. Did have a small amount of stool yesterday and some today. Patient usually has bowel movements every day. Recently had colonoscopy for polyps this past November. History of cholecystectomy. Denies any fever chills cough cold or congestion. No chest pain no back pain. No urinary complaints. Nausea is better after ODT Zofran given here at triage. MDM After history and exam, CBC CMP lipase CT abdomen pelvis normal saline Differential considered: Includes but not limited to bowel obstruction constipation Medical records reviewed: No recent visit for this complaint Lab Test results independently reviewed as above. Pertinent findings: WBC 7.3 hemoglobin 14.3, sodium 136 potassium 4.0 BUN 17 creatinine 1.0 GFR greater than 60 Imaging studies independently reviewed: X-ray chest abdomen no acute finding, CT abdomen pelvis no acute finding Consultations: None indicated at this time Re-evaluations: 1:10 p.m.. Patient feeling much better with medications and IV fluids. He would like 1 more L normal saline before discharge. He states he will start taking his omeprazole again. Zofran prescription provided. He will need to follow up for outpatient EGD and he will schedule this through his family doctor. Return precautions reviewed and they desire discharge home Discussion: Appropriate for discharge home. Exam is reassuring. IV contrast used for CT imaging. Return precautions reviewed with patient. Patient feels much better at time of discharge. They desire discharge home. Diagnosis: Abdominal pain Discharge Plan Departure Patient Disposition: Home Clinical Impression: Abdominal pain Qualifiers: Abdominal location: generalized Qualified Code(s): R10.84 - Generalized abdominal pain Instructions: DI for Abdominal Pain-Adult, DI for Dyspepsia Activity Restrictions/Additional Instructions: Your exam and laboratory studies and imaging studies are reassuring. Please see family doctor to schedule endoscopy your stomach. Please start taking your omeprazole as prescribed. Return if worse if any questions or concerns. Keep well hydrated. Prescription for Zofran/nausea medication has been sent to your pharmacy to [facility]. Prescriptions: New ondansetron 4 mg tablet,disintegrating 4 mg PO Q6H PRN (Reason: nausea and vomiting) Qty: 20 0RF No Action losartan [Cozaar] 100 MG tablet 100 mg PO BEDTIME Qty: 0 ondansetron 4 mg Tablet,Disintegrating 4 mg PO Q8H PRN (Reason: Nausea) trospium 60 mg capsule,extended release 24hr 60 mg PO DAILY Patient Comments: TAKE ONE CAPSULE BY MOUTH ONE TIME DAILY hydrochlorothiazide 25 mg tablet 25 mg PO DAILY lidocaine 5 % adhesive patch,medicated 1 patch transdermal Patient Comments: Apply 1 patch to skin in the morning and 1 patch in the evening. Apply to right low back. Remove patch after 12 hours, reapply next morning. propranolol 120 mg capsule,extended release 24 hr 120 mg PO BID oxycodone-acetaminophen 5-325 mg tablet 1 tab PO 3XD PRN (Reason: Headache) nystatin 100,000 unit/gram powder 1 applic topical gabapentin 300 mg capsule 300 mg PO 3XD tizanidine 2 mg tablet 2 mg PO BID ropinirole 0.25 mg tablet 0.25 mg PO BID sertraline 25 mg tablet 25 mg PO DAILY meloxicam 15 mg tablet 15 mg PO DAILY amlodipine 10 mg tablet 10 mg PO DAILY rizatriptan [Maxalt] 10 mg tablet 10 mg PO ONCE Rx Instructions: as a single dose omeprazole 40 mg capsule,delayed release(DR/EC) 40 mg PO DAILY loratadine 10 mg capsule 10 mg PO DAILY magnesium citrate 100 mg capsule 100 mg PO DAILY Referrals: Linda Mon PA-C [Primary Care Provider, Medical] Stand Alone Forms: Patient Portal/API
[2025-01-30 11:56] LABS: Add Manual Diff / Slide Review NO; Hematocrit 41.2 % (41-53); Hemoglobin 14.3 g/dL (13.5-17.5); Lymphocytes Absolute Auto 700 /uL (1100-4500); Mean Corpuscular HGB Conc 34.7 % (30-36); Mean Corpuscular Hemoglobin 30.6 PG (26-34); Mean Corpuscular Volume 88.1 fL (80-100); Platelet Count 242 X10^3/uL (150-400)
[2025-01-30] MEDS: PANTOPRAZOLE 40 MG VIAL IV (12:01)
[2025-01-30] MEDS: SODIUM CHLORIDE 0.9% 1,000 ML 1000 ML IV ×2 (12:01→13:13)
[2025-01-30 12:15] LABS: Alanine Aminotransferase 30 IU/L (<50); Albumin 4.6 g/dL (3.5-5.0); Albumin Globulin Ratio 1.5 (1.0-2.8); Alkaline Phosphatase 102 U/L (38-126); Blood Urea Nitrogen 17 mg/dL (9-20); Calcium 9.6 mg/dL (8.4-10.2); Carbon Dioxide 23 mmol/L (22-32); Chloride 101 mmol/L (98-107); Estimated Glomerular Filt Rate > 60 mL/min (>60); Globulin 3.0 g/dL (1.7-4.1); Glucose 167 mg/dL (70-99); HEMOLYSIS 68 (0-50); Lipase 24 U/L (23-300); Potassium 4.0 mmol/L (3.4-5.1); Sodium 136 mmol/L (137-145); Total Protein 7.6 g/dL (6.3-8.2)
[2025-01-30 14:25] LABS: Culture Indicated Urine Cult Not Indicated
== END 2025-01-30 14:20 | disposition home or self-care (01) ==
PROVIDERS: Emergency Provider Emergency Medicine; PCP Physician Assistant
DX: R10.84 Generalized abdominal pain (principal)
CPT/HCPCS: 36415; 74022; 74177; 80053; 81003; 81015; 83690; 85025; 96361; 96374; 99284; J2470; Q9967